=== PATIENT | female | born 1985 | race Caucasian/White ===

== ENCOUNTER 2016-07-25 12:14 | Emergency (ER) | payer MEDICARE, OTHER ==
--- NOTE | 2016-07-25 14:30 | ED ORDER SUMMARY ---
..... Patient: BELLA AVERY OrderSheet [facility] VisitID: [id number] [address] [place] [address] 31y, F Registration Date/Time: 07/25/2016 ORDER SHEET Weight: 81.6 kg (stated) Allergies: Codeine, Darvocet, Pyridium, Sulfa Antibiotics GENERAL ORDERS: Culture, Strep Screen Urgent (12:47 07/25/2016 MWinterer R.N. per protocol) (k 12:52 LTapper) (13:15 MWinterer R.N.) MEDICATION ORDERS: IV FLUIDS: ORDER SHEET NOTES: [Electronically signed by Danyelle Good R.N. (16:09 07/25/2016)] [Electronically signed by Rosa Casey (20:43 07/25/2016)] [Electronically locked/signed by Danyelle Good R.N. (16:09 07/25/2016)]
--- NOTE | 2016-07-25 14:30 | ED NURSING NOTES ---
Clinical Report - Nurses [facility] [address] [place] [address] 07/25/2016 12:17 Patient: BELLA AVERY TRIAGE Acuity: LEVEL 4. Chief Complaint: SORE THROAT and (cough). Alert. No acute distress. SEPSIS SCREEN: Sepsis Screen. Negative (no infection suspected/documented). --12:43 Danyelle Good R.N. 12:38 07/25/16. BP: 160/111. HR: 86. RR: 16. O2 saturation: 95% on room air. Temp: 98.3 F (oral). Pain level now: 09/17. --12:43 Danyelle Good R.N. Weight: 81.6 kg stated. Height/Length: 61 inches Per Patient. BMI: 34. --12:38 Danyelle Good R.N. Medications Lisinopril Oral 20 mg, daily. MetFORMIN HCl Oral 500 mg, daily. Seritriptoline 50mg 3 tabs for sleeping . SEROquel Oral 100 mg, 2x a day. --12:40 Danyelle Good R.N. Medication/allergy information source: the patient. --12:43 Danyelle Good R.N. Allergies Codeine. Darvocet. Pyridium. --12:40 Danyelle Good R.N. Sulfa Antibiotics. --12:40 Danyelle Good R.N. History Arrived by private vehicle. Historian: patient. Primary physician (Ender). Onset. (5 days ago). 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 PAST MEDICAL HX: Has had a tubal ligation. Denies current . SOCIAL HX: Never smoker. History of weekly drug use: marijuana. No alcohol use. Has had sore throat. Mask placed on patient. FALL RISK ASSESSMENT: Fall risk assessment completed. No fall risk identified. NUTRITIONAL RISK ASSESSMENT: The nutritional risk assessment revealed no deficiencies. FUNCTIONAL ASSESSMENT: Functional assessment: no impairments noted. LEARNING NEEDS ASSESSMENT: The learning needs assessment revealed no barriers. SKIN INTEGRITY ASSESSMENT: Skin integrity risk assessment completed. No skin integrity risk identified. --12:43 Danyelle Good R.N. PROBLEMS: Nausea. Renal Colic. Ureterolithiasis. Knee Injury. Diabetes Mellitus. Sinusitis. Pharyngitis. Bronchitis. URI. Acute Otalgia. Dental Caries. Headache. Hyperglycemia. Leukocytosis. Substance Abuse. Anemia. Dehydration. Abdominal Pain. Chronic Back Pain. UTI - Urinary Tract Infection. Nephrolithiasis. Back Pain. Colitis. Endometriosis. STD - Sexually Transmitted Disease. Hypertension. Immunizations. --12:41 Danyelle Good R.N. ADDITIONAL SURGERIES: Cholecystectomy. Tubal Ligation. --12:41 Danyelle Good R.N. Assessment GENERAL / NEURO / PSYCH: Alert. Oriented X 4. Appears in no acute distress. [place] Coma Scale: 15- eyes open spontaneously (4); best verbal response- oriented x 4 (5); best motor response- obeys commands (6). Patient appears calm and cooperative. RESPIRATORY: Respirations not labored. CVS: Capillary refill less than 2 seconds. GI / : Abdomen nontender. SKIN: Mucous membranes are pink. Skin is warm and dry. --12:43 Danyelle Good R.N. Interventions ID band on patient. To treatment room. --12:43 Danyelle Good R.N. PHYSICAL ASSESSMENT Ambulatory to room. GENERAL / NEURO / PSYCH: Alert. Oriented X 4. Appears in no acute distress. HEENT: Voice within normal limits. Mucous membranes are pink. RESPIRATORY: Respirations not labored. SKIN: Skin is warm and dry. Normal skin turgor. --12:46 Danyelle Good R.N. NURSING PROGRESS NOTES Checked patient name and birthdate: patient confirmed. Throat swab obtained for rapid strep; labeled in the presence of the patient and sent to lab. Two patient identifiers checked. Call light placed in reach. Side rails up x 1. Patient ready for evaluation- chart flagged and ED physician and HOGSHEAD OPENER notified. --12:46 Danyelle Good R.N. DISPOSITION / DISCHARGE Departure time: 1439Jul 25 2016. Condition at departure: deteriorated and stable. No learning barriers present. Discharge instructions provided and reviewed with the patient. Reviewed medication(s). Prescription(s) given to the patient. Patient verbalized understanding. Written instructions provided in Swedish. The patient was discharged by the nurse practitioner. She was discharged home. She left the Emergency Department ambulatory and via private vehicle. --16:08 Danyelle Good R.N. 16:06 07/25/16. BP: 160/89. HR: 81. RR: 18. O2 saturation: 100% on room air. Temp: 99.1 F. Pain level now: 11/17. --16:08 Danyelle Good R.N. Locked/Released at 07/25/2016 16:09 by Danyelle Good R.N.
--- NOTE | 2016-07-25 14:30 | ED CLINICAL REPORT ---
Clinical Report - Physicians/Mid Levels [facility] [address] [place] [address] 07/25/2016 12:17 Patient: BELLA AVERY Time Seen: 13:00; initial patient contact, initial documentation, patient care assumed. Arrived- By private vehicle. Historian- patient. HISTORY OF PRESENT ILLNESS Chief Complaint: SORE THROAT. This started about 5 days ago and is still present. Pain described as moderate. The patient has had a sore throat, nasal congestion, a nasal discharge and ear pain. No mouth sores, toothache, swollen jaw or face or jaw pain. No facial pain. (multiple family members sick with strep). Similar symptoms previously: None. Recent medical care: Not recently seen/assessed. REVIEW OF SYSTEMS No fever, difficulty breathing or chest pain. She has had a mild cough productive of scant amounts of yellow sputum. Denies current . All systems otherwise negative, except as recorded above. PAST HISTORY See nurses notes. PROBLEMS: Nausea. Renal Colic. Ureterolithiasis. Knee Injury. Diabetes Mellitus. Sinusitis. Pharyngitis. Bronchitis. URI. Acute Otalgia. Dental Caries. Headache. Hyperglycemia. Leukocytosis. Substance Abuse. Anemia. Dehydration. Abdominal Pain. Chronic Back Pain. UTI - Urinary Tract Infection. Nephrolithiasis. Back Pain. Colitis. Endometriosis. STD - Sexually Transmitted Disease. Hypertension. Immunizations. --12:41 Danyelle Good R.N. ADDITIONAL SURGERIES: Cholecystectomy. Tubal Ligation. --12:41 Danyelle Good, R.N. SOCIAL HISTORY Never smoker. History of weekly drug use: marijuana. No alcohol use. No recent travel. Is a local resident. FAMILY HISTORY Negative. ADDITIONAL NOTES The nursing notes have been reviewed with agreement regarding the chief complaint, HPI, ROS, PMH and patient medications and allergies. PHYSICAL EXAM Appearance: Alert. No acute distress. Head: Normal external inspection. Eyes: Pupils equal, round and reactive to light. Conjunctivae and eyelids normal. ENT: Ears normal. Nose normal. Pharynx abnormal. Mild generalized pharyngeal erythema (very mild erythema with mild cobblestone pharynx). No pharyngeal vesicles or ulcerations. No right tonsillar exudate, right tonsillar abscess, right tonsillar swelling, right peritonsillitis, left tonsillar exudate, left tonsillar abscess, left tonsillar swelling or left peritonsillitis. Lips normal. Gums normal. No trismus present. Uvula midline. Neck: Normal inspection. Trachea midline. No adenopathy. Thyroid normal. Neck supple. CVS: Normal heart rate and rhythm. Heart sounds normal. Pulses normal. Respiratory: No respiratory distress. Breath sounds normal. Chest nontender. Skin: Normal skin color. No rash. Normal skin turgor. Extremities: Extremities exhibit normal ROM. Extremities nontender. Neuro: Oriented X 3. No motor deficit. No sensory deficit. LABS, X-RAYS, AND EKG Laboratory Tests: Culture, Strep Screen: (LORETO: 07/25/2016 12:45) ( MsgRcvd 07/25/2016 13:13) Final results Test Result Flag Units (Reference) RAPID STREP SCREEN - THROAT DATE: 07/25/16 NEGATIVE SCREEN: RAPID STREP SCREEN NEGATIVE; CONFIRMATION TO FOLLOW . PROGRESS AND PROCEDURES Patient counseled in person regarding the patient's stable condition, test results and diagnosis. 14:29. Differential Diagnosis: Other possible considerations: pharyngitis, flu, viral illness, uri, allergies, sinusitis, aom, aoe, bronchitis, pneumonia. Above considerations are based on history and physical exam. Differential diagnosis was discussed with patient. Disposition: Discharged home in good and unchanged condition (14:30). Condition: good and stable. CLINICAL IMPRESSION Acute viral sinusitis. No airway obstruction. Acute viral pharyngitis INSTRUCTIONS Alternate Tylenol (Acetaminophen) and Motrin (Ibuprofen) for fever, temperature greater than 101 degrees. Take according to label instructions. Drink plenty of fluids for the next 24 hours until better. Warnings: GENERAL WARNINGS: Return or contact your physician immediately if your condition worsens or changes unexpectedly, if not improving as expected, or if other problems arise. Specifically return if problem worsens. Prescription Medications: Amoxicillin 500 mg tablets: Take 1 orally every 8 hours for 10 days. Dispense thirty (30). No refills. Follow-up: Follow up with your doctor in about three days as needed. Call for an appointment. Summary of care provided to patient. Understanding of the discharge instructions verbalized. (Electronically signed by Rosa Casey A.R.N.P. 07/25/2016 20:43)
--- NOTE | 2016-07-25 14:30 | ED ORDER SUMMARY ---
..... Patient: BELLA AVERY OrderSheet [facility] VisitID: [id number] [address] [place] [address] 31y, F Registration Date/Time: 07/25/2016 ORDER SHEET Weight: 81.6 kg (stated) Allergies: Codeine, Darvocet, Pyridium, Sulfa Antibiotics GENERAL ORDERS: Culture, Strep Screen Urgent (12:47 07/25/2016 MWinterer R.N. per protocol) (k 12:52 LTapper) (13:15 MWinterer R.N.) MEDICATION ORDERS: IV FLUIDS: ORDER SHEET NOTES: [Electronically signed by Danyelle Good R.N. (16:09 07/25/2016)] [Electronically signed by Rosa Casey (20:43 07/25/2016)] [Electronically locked/signed by Danyelle Good R.N. (16:09 07/25/2016)]
--- NOTE | 2016-07-25 14:30 | ED NURSING NOTES ---
Clinical Report - Nurses [facility] [address] [place] [address] 07/25/2016 12:17 Patient: BELLA AVERY TRIAGE Acuity: LEVEL 4. Chief Complaint: SORE THROAT and (cough). Alert. No acute distress. SEPSIS SCREEN: Sepsis Screen. Negative (no infection suspected/documented). --12:43 Danyelle Good R.N. 12:38 07/25/16. BP: 160/111. HR: 86. RR: 16. O2 saturation: 95% on room air. Temp: 98.3 F (oral). Pain level now: 09/17. --12:43 Danyelle Good R.N. Weight: 81.6 kg stated. Height/Length: 61 inches Per Patient. BMI: 34. --12:38 Danyelle Good R.N. Medications Lisinopril Oral 20 mg, daily. MetFORMIN HCl Oral 500 mg, daily. Seritriptoline 50mg 3 tabs for sleeping . SEROquel Oral 100 mg, 2x a day. --12:40 Danyelle Good R.N. Medication/allergy information source: the patient. --12:43 Danyelle Good R.N. Allergies Codeine. Darvocet. Pyridium. --12:40 Danyelle Good R.N. Sulfa Antibiotics. --12:40 Danyelle Good R.N. History Arrived by private vehicle. Historian: patient. Primary physician (Ender). Onset. (5 days ago). 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 PAST MEDICAL HX: Has had a tubal ligation. Denies current . SOCIAL HX: Never smoker. History of weekly drug use: marijuana. No alcohol use. Has had sore throat. Mask placed on patient. FALL RISK ASSESSMENT: Fall risk assessment completed. No fall risk identified. NUTRITIONAL RISK ASSESSMENT: The nutritional risk assessment revealed no deficiencies. FUNCTIONAL ASSESSMENT: Functional assessment: no impairments noted. LEARNING NEEDS ASSESSMENT: The learning needs assessment revealed no barriers. SKIN INTEGRITY ASSESSMENT: Skin integrity risk assessment completed. No skin integrity risk identified. --12:43 Danyelle Good R.N. PROBLEMS: Nausea. Renal Colic. Ureterolithiasis. Knee Injury. Diabetes Mellitus. Sinusitis. Pharyngitis. Bronchitis. URI. Acute Otalgia. Dental Caries. Headache. Hyperglycemia. Leukocytosis. Substance Abuse. Anemia. Dehydration. Abdominal Pain. Chronic Back Pain. UTI - Urinary Tract Infection. Nephrolithiasis. Back Pain. Colitis. Endometriosis. STD - Sexually Transmitted Disease. Hypertension. Immunizations. --12:41 Danyelle Good R.N. ADDITIONAL SURGERIES: Cholecystectomy. Tubal Ligation. --12:41 Danyelle Good R.N. Assessment GENERAL / NEURO / PSYCH: Alert. Oriented X 4. Appears in no acute distress. [place] Coma Scale: 15- eyes open spontaneously (4); best verbal response- oriented x 4 (5); best motor response- obeys commands (6). Patient appears calm and cooperative. RESPIRATORY: Respirations not labored. CVS: Capillary refill less than 2 seconds. GI / : Abdomen nontender. SKIN: Mucous membranes are pink. Skin is warm and dry. --12:43 Danyelle Good R.N. Interventions ID band on patient. To treatment room. --12:43 Danyelle Good R.N. PHYSICAL ASSESSMENT Ambulatory to room. GENERAL / NEURO / PSYCH: Alert. Oriented X 4. Appears in no acute distress. HEENT: Voice within normal limits. Mucous membranes are pink. RESPIRATORY: Respirations not labored. SKIN: Skin is warm and dry. Normal skin turgor. --12:46 Danyelle Good R.N. NURSING PROGRESS NOTES Checked patient name and birthdate: patient confirmed. Throat swab obtained for rapid strep; labeled in the presence of the patient and sent to lab. Two patient identifiers checked. Call light placed in reach. Side rails up x 1. Patient ready for evaluation- chart flagged and ED physician and RN CHEMICAL DEPENDENCY notified. --12:46 Danyelle Good R.N. DISPOSITION / DISCHARGE Departure time: 1439Jul 25 2016. Condition at departure: deteriorated and stable. No learning barriers present. Discharge instructions provided and reviewed with the patient. Reviewed medication(s). Prescription(s) given to the patient. Patient verbalized understanding. Written instructions provided in Malay. The patient was discharged by the nurse practitioner. She was discharged home. She left the Emergency Department ambulatory and via private vehicle. --16:08 Danyelle Good R.N. 16:06 07/25/16. BP: 160/89. HR: 81. RR: 18. O2 saturation: 100% on room air. Temp: 99.1 F. Pain level now: 11/17. --16:08 Danyelle Good R.N. Locked/Released at 07/25/2016 16:09 by Danyelle Good R.N.
--- NOTE | 2016-07-25 20:44 | ED MAR SUMMARY ---
..... Medication Administration Record [facility] [address] [place], [place] [id number] Patient: BELLA AVERY Visit ID: [id number] 31y, F Weight: 81.6 kg Height/Length: 61 in BMI: 34 ALLERGIES: Codeine, Darvocet, Pyridium, Sulfa Antibiotics
--- NOTE | 2016-07-25 20:44 | ED MAR SUMMARY ---
..... Medication Administration Record [facility] [address] [place] [id number] Patient: BELLA AVERY Visit ID: [id number] 31y, F Weight: 81.6 kg Height/Length: 61 in BMI: 34 ALLERGIES: Codeine, Darvocet, Pyridium, Sulfa Antibiotics
--- NOTE | 2016-07-25 20:44 | ED MED RECONCILIATION SUMMARY ---
Patient: BELLA AVERY Medication Reconciliation Report [facility] VisitID: [id number] [address] [place] [address] 31y, F Registration Date/Time: 07/25/2016 Weight: 81.6 kg Height/Length: 61 in. BMI: 34.0 ALLERGIES: Codeine, Darvocet, Pyridium, Sulfa Antibiotics The patient's Home Medications are listed below: THE FOLLOWING MEDICATIONS NEED TO BE RECONCILED: Lisinopril Oral 20 mg, daily MetFORMIN HCl Oral 500 mg, daily Seritriptoline 50mg 3 tabs for sleeping SEROquel Oral 100 mg, 2x a day The source(s) of the original Home Medication information: patient The following Medications were given to the patient in the Emergency Department: None. The following Medications were prescribed to the patient: Amoxicillin 500 mg tablets: Take 1 orally every 8 hours for 10 days. Dispense thirty (30). No refills. -- Rosa Casey A.R.N.P.
--- NOTE | 2016-07-25 20:44 | ED MED RECONCILIATION SUMMARY ---
Patient: BELLA AVERY Medication Reconciliation Report [facility] VisitID: [id number] [address] [place] [address] 31y, F Registration Date/Time: 07/25/2016 Weight: 81.6 kg Height/Length: 61 in. BMI: 34.0 ALLERGIES: Codeine, Darvocet, Pyridium, Sulfa Antibiotics The patient's Home Medications are listed below: THE FOLLOWING MEDICATIONS NEED TO BE RECONCILED: Lisinopril Oral 20 mg, daily MetFORMIN HCl Oral 500 mg, daily Seritriptoline 50mg 3 tabs for sleeping SEROquel Oral 100 mg, 2x a day The source(s) of the original Home Medication information: patient The following Medications were given to the patient in the Emergency Department: None. The following Medications were prescribed to the patient: Amoxicillin 500 mg tablets: Take 1 orally every 8 hours for 10 days. Dispense thirty (30). No refills. -- Rosa Casey A.R.N.P.
--- NOTE | 2016-07-25 20:44 | ED DISCHARGE INSTRUCTIONS ---
Patient: BELLA AVERY General Instructions [facility] VisitID: [id number] [place] [address] 31y, F Registration Date/Time: 07/25/2016 Acute viral sinusitis. No airway obstruction. Acute viral pharyngitis INSTRUCTIONS Alternate Tylenol (Acetaminophen) and Motrin (Ibuprofen) for fever, temperature greater than 101 degrees. Take according to label instructions. Drink plenty of fluids for the next 24 hours until better. Warnings: GENERAL WARNINGS: Return or contact your physician immediately if your condition worsens or changes unexpectedly, if not improving as expected, or if other problems arise. Specifically return if problem worsens. Prescription Medications: Amoxicillin 500 mg tablets: Take 1 orally every 8 hours for 10 days. Dispense thirty (30). No refills. Follow-up: Follow up with your doctor in about three days as needed. Call for an appointment. Summary of care provided to patient. Understanding of the discharge instructions verbalized. ADDITIONAL INFORMATION Viral Pharyngitis (Sore Throat) Your throat pain is due to an infection called "Viral Pharyngitis", commonly known as "Sore Throat". This is a contagious illness. It is spread through the air by coughing, kissing or by touching others after touching your mouth or nose. Symptoms include throat pain worse with swallowing, aching all over, headache and fever. Unlike strep throat, which is a bacterial infection, this illness does not require treatment with an antibiotic. Home Care: If your symptoms are severe, rest at home for the first 2-3 days. Children: Use acetaminophen (Tylenol) for fever, fussiness or discomfort. In infants over six months of age, you may use ibuprofen (Children's Motrin) instead of Tylenol. [NOTE: If your child has chronic liver or kidney disease or ever had a stomach ulcer or GI bleeding, talk with your aaliyah doctor before using these medicines.] (Aspirin should never be used in anyone under 18 years of age who is ill with a fever. It may cause severe liver damage.) Adults: You may use acetaminophen (Tylenol) or ibuprofen (Motrin, Advil) to control pain or fever, unless another medicine was prescribed. [NOTE: If you have chronic liver or kidney disease or ever had a stomach ulcer or GI bleeding, talk with your doctor before using these medicines.] Throat lozenges or sprays (Chloraseptic and others) will reduce pain. Gargling with warm salt water will also reduce throat pain. Dissolve 1/2 teaspoon of salt in 1 glass of warm water. This is especially useful just before meals. Follow Up with your doctor or as directed by our staff if you are not improving over the next week. Get Prompt Medical Attention if any of the following occur: Fever over 100.5F (38.0C) oral, or over 101.5F (38.6C) rectal for more than three days New or worsening ear pain, sinus pain or headache Painful lumps in the back of your neck Unable to swallow liquids or open your mouth wide due to throat pain Trouble breathing or noisy breathing Muffled voice New rash Viral Respiratory Illness [Adult] You have an Upper Respiratory Illness (URI) caused by a virus. This illness is contagious during the first few days. It is spread through the air by coughing and sneezing or by direct contact (touching the sick person and then touching your own eyes, nose or mouth). Most viral illnesses go away within 7-10 days with rest and simple home remedies. Sometimes, the illness may last for several weeks. Antibiotics will not kill a virus and are generally not prescribed for this condition. Home Care: 1) If symptoms are severe, rest at home for the first 2-3 days. When you resume activity, don't let yourself get too tired. 2) Avoid being exposed to cigarette smoke (yours or others). 3) Tylenol (acetaminophen) or ibuprofen (Advil, Motrin) will help fever, muscle aching and headache. (Persons under 18 with fever should not take aspirin since this may cause liver damage.) 4) Your appetite may be poor, so a light diet is fine. Avoid dehydration by drinking 6-8 glasses of fluids per day (water, soft drinks, juices, tea, soup). Extra fluids will help loosen secretions in the nose and lungs. 5) [id number]-[id number] cold medicines will not shorten the length of time youre sick, but they may be helpful for the following symptoms: cough (Robitussin DM); sore throat (Chloraseptic lozenges or spray); nasal and sinus congestion (Actifed, Sudafed, Chlortrimeton). Follow Up with your doctor or as advised if you dont improve over the next week. Get Prompt Medical Attention if any of the following occur: -- Cough with lots of colored sputum (mucus) or blood in your sputum -- Chest pain, shortness of breath, wheezing or have trouble breathing -- Severe headache; face, neck or ear pain -- Fever over 100.4 F (38.0 C) for more than three days -- You cant swallow due to throat pain Fever Control (Adult) A fever is a natural reaction of the body to an illness. In most cases, the temperature itself is not harmful. It actually helps the body fight infections. A fever does not need to be treated unless you feel very uncomfortable. Home Care If you feel warm, check your temperature. If you feel very uncomfortable and your temperature is at or higher than 100.4F (38C) oral, you may take acetaminophen (Tylenol) every 4 to 6 hours. If you cant take or keep down oral medicine, ask your pharmacist for Tylenol suppositories, which you can get without a prescription. If the fever does not respond to acetaminophen within 1 hour, take ibuprofen (Advil or Motrin). If this works, keep taking the ibuprofen every 6 to 8 hours. Note: If you have chronic liver or kidney disease or ever had a stomach ulcer or GI bleeding, talk with your doctor before using these medications. If either medication alone does not keep the fever down, you may alternate the two medicines every 3 to 4 hours, only if your healthcare provider has instructed you to do so. For example, take Motrin then wait 3 hours, take Tylenol then wait 3 hours, take Motrin, and so on. Follow your healthcare providers instructions exactly. Clothing: Keep clothing light because excess body heat is lost through the skin. The fever will go up if you wear extra layers or wrap in blankets. Fluids: Fever causes the body to lose water through evaporation. Drink plenty of fluids such as water, juice, clear sodas, naima vj, or lemonade. Do not use aspirin in anyone under 18 years of age who is ill with a fever. It can cause severe liver damage. Follow Up with your doctor or as advised by our staff if you do not get better after 48 hours. Get Prompt Medical Attention if any of the following occur: Fever does not get better after taking fever medication Fast or difficult breathing Earache, sinus pain, stiff or painful neck, headache, repeated diarrhea or vomiting You feel unusually irritable, drowsy, or confused A rash appears You feel weak or dizzy, or that you might faint Amoxicillin Trihydrate Oral tablet What is this medicine? AMOXICILLIN (a mox i PIERRE in) is a penicillin antibiotic. It is used to treat certain kinds of bacterial infections. It will not work for colds, flu, or other viral infections. How should I use this medicine? Take this medicine by mouth with a glass of water. Follow the directions on your prescription label. You may take this medicine with food or on an empty stomach. Take your medicine at regular intervals. Do not take your medicine more often than directed. Take all of your medicine as directed even if you think your are better. Do not skip doses or stop your medicine early. Talk to your appointment scheduler regarding the use of this medicine in children. While this drug may be prescribed for selected conditions, precautions do apply. What side effects may I notice from receiving this medicine? Side effects that you should report to your doctor or health resident care associate as soon as possible: allergic reactions like skin rash, itching or hives, swelling of the face, lips, or tongue breathing problems dark urine redness, blistering, peeling or loosening of the skin, including inside the mouth seizures severe or watery diarrhea trouble passing urine or change in the amount of urine unusual bleeding or bruising unusually weak or tired yellowing of the eyes or skin Side effects that usually do not require medical attention (report to your doctor or health resident care associate if they continue or are bothersome): dizziness headache stomach upset trouble sleeping What may interact with this medicine? amiloride control pills chloramphenicol macrolides probenecid sulfonamides tetracyclines What if I miss a dose? If you miss a dose, take it as soon as you can. If it is almost time for your next dose, take only that dose. Do not take double or extra doses. Where should I keep my medicine? Keep out of the reach of children. Store between 68 and 77 degrees F (20 and 25 degrees C). Keep bottle closed tightly. Throw away any unused medicine after the expiration date. What should I tell my health care provider before I take this medicine? They need to know if you have any of these conditions: asthma kidney disease an unusual or allergic reaction to amoxicillin, other penicillins, cephalosporin antibiotics, other medicines, foods, dyes, or preservatives or trying to get breast-feeding What should I watch for while using this medicine? Tell your doctor or health resident care associate if your symptoms do not improve in 2 or 3 days. Take all of the doses of your medicine as directed. Do not skip doses or stop your medicine early. If you are diabetic, you may get a false positive result for sugar in your urine with certain brands of urine tests. Check with your doctor. Do not treat diarrhea with [id number]-rbb-xtermon products. Contact your doctor if you have diarrhea that lasts more than 2 days or if the diarrhea is severe and watery. You have been given the following additional information: Pharyngitis, Viral Uri, Viral, No Abx (Adult) Fever Control (Adult) Amoxicillin Trihydrate Oral tablet (Electronically signed by Rosa Casey A.R.N.P. 07/25/2016 20:43)
== END 2016-07-25 14:40 | disposition home or self-care (01) ==
LOC: ED SRH 12:14
DX: J01.90 Acute sinusitis, unspecified (principal); J20.8 Acute bronchitis due to other specified organisms; Z79.84 Long term (current) use of oral hypoglycemic drugs; Z88.5 Allergy status to narcotic agent; Z88.2 Allergy status to sulfonamides
CPT/HCPCS: 90154; 90159; 90627

== ENCOUNTER 2016-08-16 13:38 | Emergency (ER) | payer MEDICARE, OTHER ==
--- NOTE | 2016-08-16 15:39 | ED CLINICAL REPORT ---
Clinical Report - Physicians/Mid Levels [facility] [address] [place] [address] 08/16/2016 13:38 Patient: BELLA AVERY Time Seen: 16:22 Aug 16 2016. Arrived- By private vehicle. Historian- patient. HISTORY OF PRESENT ILLNESS Chief Complaint: SORE THROAT. This started yesterday and is still present. Pain described as moderate. The patient has had a sore throat. No toothache or swollen jaw. (Sore throat over the last 24 hours, worsening. Denies any difficulty with cough, swallowing. No sick contacts at home.). REVIEW OF SYSTEMS The patient has had fever. No headache or fainting episodes. All systems otherwise negative, except as recorded above. PAST HISTORY Problems: Nausea. Renal Colic. Ureterolithiasis. Knee Injury. Diabetes Mellitus. Sinusitis. Pharyngitis. Bronchitis. URI. Acute Otalgia. Dental Caries. Headache. Hyperglycemia. Leukocytosis. Substance Abuse. Anemia. Dehydration. Abdominal Pain. Chronic Back Pain. UTI - Urinary Tract Infection. Nephrolithiasis. Back Pain. Colitis. Endometriosis. STD - Sexually Transmitted Disease. Hypertension. Immunizations. LNMP - Last Normal Menstrual Period. Additional Surgeries: Cholecystectomy. Tubal Ligation. Medications: DayQuil Sore Throat and Cough. Lisinopril Oral 20 mg, daily. MetFORMIN HCl Oral 500 mg, daily. Seritriptoline 50mg 3 tabs for sleeping . SEROquel Oral 100 mg, 2x a day. Allergies: Codeine. Darvocet. Pyridium. Sulfa Antibiotics. SOCIAL HISTORY Never smoker. History of occasional drug use throat culture. No alcohol use. ADDITIONAL NOTES The nursing notes have been reviewed. PHYSICAL EXAM Vital Signs: 08/16/2016 14:56 BP: 180/120. HR: 84. RR: 18. O2 saturation: 98%. Temp: 98.7 F. Pain level now: 7/10. ENT: Nose normal. Pharyngeal erythema. No trismus present. No tonsillar exudate, peritonsillar mass, drooling, dental tenderness or trismus. The mucous membranes are not dry. (uvula midline). Neck: Lymphadenopathy present. No thyromegaly or meningeal signs. CVS: Normal heart rate and rhythm. Heart sounds normal. Respiratory: No respiratory distress. Breath sounds normal. Abdomen: Soft. Neuro: Oriented X 3. LABS, X-RAYS, AND EKG Laboratory Tests: Culture, Strep Screen: (LORETO: 08/16/2016 15:00) ( MsgRcvd 08/16/2016 15:34) Final results Test Result Flag Units (Reference) RAPID STREP SCREEN - THROAT CALLED TO: ED LEONARDO/NAMAN MACK -- DATE: 08/16/16 POSITIVE SCREEN: RAPID STREP SCREEN: POSITIVE FOR GROUP A STREP . PROGRESS AND PROCEDURES Course of Care: PCP in the ER is afebrile, with signs of hypertension, to be checked with her primary care provider. Uvula midline. Patient is stable. Physical exam findings are improved. Symptoms better. Patient/family counseled. Differential Diagnosis: I considered viral pharyngitis, bacterial pharyngitis, mycoplasmal pharyngitis, gonococcal pharyngitis, palatine tonsillitis, lingual tonsillitis, thrush, aphthous stomatitis, allergic stomatitis, erythema multiforme, mononucleosis, peritonsillar cellulitis, parapharyngeal abscess and foreign body as a possible cause of sore throat in this patient. This is a partial list of diagnoses considered. Disposition: Discharged. CLINICAL IMPRESSION Acute pharyngitis Diabetes. INSTRUCTIONS Drink plenty of fluids. (salt water gargles hydrate well). Prescription Medications: Amoxicillin 500 mg tablets: take 1 orally every 8 hours for 10 days. No refills. OTC Medications: Take OTC medications according to label instructions. Available over the counter. Acetaminophen (available over the counter): take according to label instructions. Motrin (available over the counter): take according to label instructions. Follow-up: Follow up with your doctor in three days. (Electronically signed by Melva Sweeney P.A.-C 08/16/2016 16:25)
--- NOTE | 2016-08-16 15:39 | ED ORDER SUMMARY ---
..... Patient: BELLA AVERY OrderSheet [facility] VisitID: [id number] [address] [place] [address] 31y, F Registration Date/Time: 08/16/2016 ORDER SHEET Weight: 81.6 kg Allergies: Codeine, Darvocet, Pyridium, Sulfa Antibiotics GENERAL ORDERS: Culture, Strep Screen Urgent (14:58 08/16/2016 EKoroleva P.A.-C) (Ack 15:03 LNations ER Tech1) (15:44 Armandoelli R.N.) POC Glucose (14:58 08/16/2016 EKoroleva P.A.-C) (Ack 15:03 LNations ER Tech1) (15:44 Armandoelli R.N.) MEDICATION ORDERS: Amoxicillin PO 500 mg (NOW) (15:36 08/16/2016 Kiesha P.A.-C) (Ack 15:52 Blanco R.N.) (15:52 Blanco R.N.) IV FLUIDS: ORDER SHEET NOTES: [Electronically signed by Ryanne Roman R.N. (15:58 08/16/2016)] [Electronically signed by Melva Sweeney P.A.-C (16:25 08/16/2016)] [Electronically locked/signed by Ryanne Roman R.N. (15:58 08/16/2016)]
--- NOTE | 2016-08-16 15:39 | ED CLINICAL REPORT ---
Clinical Report - Physicians/Mid Levels [facility] [address] [place] [address] 08/16/2016 13:38 Patient: BELLA AVERY Time Seen: 16:22 Aug 16 2016. Arrived- By private vehicle. Historian- patient. HISTORY OF PRESENT ILLNESS Chief Complaint: SORE THROAT. This started yesterday and is still present. Pain described as moderate. The patient has had a sore throat. No toothache or swollen jaw. (Sore throat over the last 24 hours, worsening. Denies any difficulty with cough, swallowing. No sick contacts at home.). REVIEW OF SYSTEMS The patient has had fever. No headache or fainting episodes. All systems otherwise negative, except as recorded above. PAST HISTORY Problems: Nausea. Renal Colic. Ureterolithiasis. Knee Injury. Diabetes Mellitus. Sinusitis. Pharyngitis. Bronchitis. URI. Acute Otalgia. Dental Caries. Headache. Hyperglycemia. Leukocytosis. Substance Abuse. Anemia. Dehydration. Abdominal Pain. Chronic Back Pain. UTI - Urinary Tract Infection. Nephrolithiasis. Back Pain. Colitis. Endometriosis. STD - Sexually Transmitted Disease. Hypertension. Immunizations. LNMP - Last Normal Menstrual Period. Additional Surgeries: Cholecystectomy. Tubal Ligation. Medications: DayQuil Sore Throat and Cough. Lisinopril Oral 20 mg, daily. MetFORMIN HCl Oral 500 mg, daily. Seritriptoline 50mg 3 tabs for sleeping . SEROquel Oral 100 mg, 2x a day. Allergies: Codeine. Darvocet. Pyridium. Sulfa Antibiotics. SOCIAL HISTORY Never smoker. History of occasional drug use throat culture. No alcohol use. ADDITIONAL NOTES The nursing notes have been reviewed. PHYSICAL EXAM Vital Signs: 08/16/2016 14:56 BP: 180/120. HR: 84. RR: 18. O2 saturation: 98%. Temp: 98.7 F. Pain level now: 7/10. ENT: Nose normal. Pharyngeal erythema. No trismus present. No tonsillar exudate, peritonsillar mass, drooling, dental tenderness or trismus. The mucous membranes are not dry. (uvula midline). Neck: Lymphadenopathy present. No thyromegaly or meningeal signs. CVS: Normal heart rate and rhythm. Heart sounds normal. Respiratory: No respiratory distress. Breath sounds normal. Abdomen: Soft. Neuro: Oriented X 3. LABS, X-RAYS, AND EKG Laboratory Tests: Culture, Strep Screen: (LORETO: 08/16/2016 15:00) ( MsgRcvd 08/16/2016 15:34) Final results Test Result Flag Units (Reference) RAPID STREP SCREEN - THROAT CALLED TO: ED LEONARDO/NAMAN MACK -- DATE: 08/16/16 POSITIVE SCREEN: RAPID STREP SCREEN: POSITIVE FOR GROUP A STREP . PROGRESS AND PROCEDURES Course of Care: PCP in the ER is afebrile, with signs of hypertension, to be checked with her primary care provider. Uvula midline. Patient is stable. Physical exam findings are improved. Symptoms better. Patient/family counseled. Differential Diagnosis: I considered viral pharyngitis, bacterial pharyngitis, mycoplasmal pharyngitis, gonococcal pharyngitis, palatine tonsillitis, lingual tonsillitis, thrush, aphthous stomatitis, allergic stomatitis, erythema multiforme, mononucleosis, peritonsillar cellulitis, parapharyngeal abscess and foreign body as a possible cause of sore throat in this patient. This is a partial list of diagnoses considered. Disposition: Discharged. CLINICAL IMPRESSION Acute pharyngitis Diabetes. INSTRUCTIONS Drink plenty of fluids. (salt water gargles hydrate well). Prescription Medications: Amoxicillin 500 mg tablets: take 1 orally every 8 hours for 10 days. No refills. OTC Medications: Take OTC medications according to label instructions. Available over the counter. Acetaminophen (available over the counter): take according to label instructions. Motrin (available over the counter): take according to label instructions. Follow-up: Follow up with your doctor in three days. (Electronically signed by Melva Sweeney P.A.-C 08/16/2016 16:25)
--- NOTE | 2016-08-16 15:39 | ED ORDER SUMMARY ---
..... Patient: BELLA AVERY OrderSheet [facility] VisitID: [id number] [address] [place] [address] 31y, F Registration Date/Time: 08/16/2016 ORDER SHEET Weight: 81.6 kg Allergies: Codeine, Darvocet, Pyridium, Sulfa Antibiotics GENERAL ORDERS: Culture, Strep Screen Urgent (14:58 08/16/2016 EKoroleva P.A.-C) (Ack 15:03 LNations ER Tech1) (15:44 Armandoelli R.N.) POC Glucose (14:58 08/16/2016 EKoroleva P.A.-C) (Ack 15:03 LNations ER Tech1) (15:44 Armandoelli R.N.) MEDICATION ORDERS: Amoxicillin PO 500 mg (NOW) (15:36 08/16/2016 Kiesha P.A.-C) (Ack 15:52 Blanco R.N.) (15:52 Blanco R.N.) IV FLUIDS: ORDER SHEET NOTES: [Electronically signed by Ryanne Roman R.N. (15:58 08/16/2016)] [Electronically signed by Melva Sweeney P.A.-C (16:25 08/16/2016)] [Electronically locked/signed by Ryanne Roman R.N. (15:58 08/16/2016)]
--- NOTE | 2016-08-16 15:39 | ED NURSING NOTES ---
Clinical Report - Nurses [facility] [address] [place] [address] 08/16/2016 13:38 Patient: BELLA AVERY TRIAGE Triage time 14:56 Aug 16 2016. Acuity: LEVEL 3. Chief Complaint: SORE THROAT, SWELLING OF JAW / FACE and (swelling of throat). Alert. LILLY COMA SCORE: Lilly Coma Scale: 15- eyes open spontaneously (4); best verbal response- oriented x 4 (5); best motor response- obeys commands (6). --15:05 Teto Reyes R.N. 14:56 08/16/16. BP: 180/120. HR: 84 (regular). RR: 18. O2 saturation: 98% on room air. Temp: 98.7 F (oral). Pain level now: 7/10. Additional comments: sore throat pain. --15:05 Teto Reyes R.N. Weight: 81.6 kg. Height/Length: 61 inches Per Patient. BMI: 34. --14:57 Teto Reyes R.N. Medications Lisinopril Oral 20 mg, daily. MetFORMIN HCl Oral 500 mg, daily. Seritriptoline 50mg 3 tabs for sleeping . SEROquel Oral 100 mg, 2x a day. --14:59 Teto Reyes R.N. DayQuil Sore Throat and Cough. --14:59 Teto Reyes R.N. Allergies Codeine. Darvocet. Pyridium. Sulfa Antibiotics. --14:59 Teto Reyes R.N. Medication/allergy information source: the patient. --15:05 Teto Reyes R.N. History Arrived by private vehicle. Historian: patient. Accompanied by family. Primary physician ([facility]). ( Sore Throat associated with throat swelling). This started yesterday. She has had hoarseness. Reports enlarged lymph nodes. 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 Symptoms did not improve after treatment. PAST MEDICAL HX: Immunizations: status is unknown. Last normal menstrual period was 3 weeks ago. Denies current . SOCIAL HX: Never smoker. History of drug use: marijuana. No alcohol use. No infectious disease exposure. ABUSE ASSESSMENT: No report of abuse. FALL RISK ASSESSMENT: Fall risk assessment completed. No fall risk identified. NUTRITIONAL RISK ASSESSMENT: The nutritional risk assessment revealed no deficiencies. FUNCTIONAL ASSESSMENT: Functional assessment: no impairments noted. LEARNING NEEDS ASSESSMENT: The learning needs assessment revealed no barriers. SKIN INTEGRITY ASSESSMENT: Skin integrity risk assessment completed. No skin integrity risk identified. --15:05 Teto Reyes R.N. PROBLEMS: Nausea. Renal Colic. Ureterolithiasis. Knee Injury. Diabetes Mellitus. Sinusitis. Pharyngitis. Bronchitis. URI. Acute Otalgia. Dental Caries. Headache. Hyperglycemia. Leukocytosis. Substance Abuse. Anemia. Dehydration. Abdominal Pain. Chronic Back Pain. UTI - Urinary Tract Infection. Nephrolithiasis. Back Pain. Colitis. Endometriosis. Hypertension. --15:01 Teot Reyes R.N. Pelvic Inflammatory Disease [RuleOut]. --15:01 Teto Reyes R.N. ADDITIONAL SURGERIES: Cholecystectomy. Tubal Ligation. --15:01 Teto Reyes R.N. Interventions ID band on patient. To waiting room. --15:05 Teto Reyes R.N. PHYSICAL ASSESSMENT 15:50. Ambulatory to room. GENERAL / NEURO / PSYCH: Alert. Oriented X 4. Appears in no acute distress. RESPIRATORY: Respirations not labored. SKIN: Skin is warm and dry. --15:58 Ryanne Roman R.N. NURSING PROGRESS NOTES Glucose: 260. --15:12 Dharmesh Fleming 15:35 08/16/16. ( Lab called with positive strep screen , HERI Sorenson notified). --15:35 Roxane Dominguez R.N. 15:47 08/16/2016 Amoxicillin PO Capsules 500 mg given. Allergies verified and confirmed 5 rights. --15:52 Ryanne Roman R.N. 15:50. The patient is calm. Overall patient status is the same- she states feels the same. GENERAL / NEURO / PSYCH: Alert. Oriented X 4. RESPIRATORY: No respiratory distress. SKIN: Skin is warm and dry. --15:57 Ryanne Roman R.N. DISPOSITION / DISCHARGE Departure time: 1550. Condition at departure: stable. No learning barriers present. Discharge instructions provided and reviewed with the patient. Reviewed medication(s). Prescription(s) given to the patient. Patient verbalized understanding. Written instructions provided in Polish. The patient was discharged home and unaccompanied at time of discharge. She left the Emergency Department ambulatory and via private vehicle. FALL RISK ASSESSMENT: Fall risk assessment completed. No fall risk identified. --15:56 Ryanne Roman R.N. 15:53 08/16/16. BP: 159/90. HR: 85. RR: 18. O2 saturation: 99% on room air. Pain level now: 02/17. --15:56 Ryanne Roman R.N. Locked/Released at 08/16/2016 15:58 by Ryanne Roman R.N.
--- NOTE | 2016-08-16 15:39 | ED NURSING NOTES ---
Clinical Report - Nurses [facility] [address] [place] [address] 08/16/2016 13:38 Patient: BELLA AVERY TRIAGE Triage time 14:56 Aug 16 2016. Acuity: LEVEL 3. Chief Complaint: SORE THROAT, SWELLING OF JAW / FACE and (swelling of throat). Alert. LILLY COMA SCORE: Lilly Coma Scale: 15- eyes open spontaneously (4); best verbal response- oriented x 4 (5); best motor response- obeys commands (6). --15:05 Teto Reyes R.N. 14:56 08/16/16. BP: 180/120. HR: 84 (regular). RR: 18. O2 saturation: 98% on room air. Temp: 98.7 F (oral). Pain level now: 7/10. Additional comments: sore throat pain. --15:05 Teto Reyes R.N. Weight: 81.6 kg. Height/Length: 61 inches Per Patient. BMI: 34. --14:57 Teto Reyes R.N. Medications Lisinopril Oral 20 mg, daily. MetFORMIN HCl Oral 500 mg, daily. Seritriptoline 50mg 3 tabs for sleeping . SEROquel Oral 100 mg, 2x a day. --14:59 Teto Reyes R.N. DayQuil Sore Throat and Cough. --14:59 Teto Reyes R.N. Allergies Codeine. Darvocet. Pyridium. Sulfa Antibiotics. --14:59 Teto Reyes R.N. Medication/allergy information source: the patient. --15:05 Teto Reyes R.N. History Arrived by private vehicle. Historian: patient. Accompanied by family. Primary physician ([facility]). ( Sore Throat associated with throat swelling). This started yesterday. She has had hoarseness. Reports enlarged lymph nodes. 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 Symptoms did not improve after treatment. PAST MEDICAL HX: Immunizations: status is unknown. Last normal menstrual period was 3 weeks ago. Denies current . SOCIAL HX: Never smoker. History of drug use: marijuana. No alcohol use. No infectious disease exposure. ABUSE ASSESSMENT: No report of abuse. FALL RISK ASSESSMENT: Fall risk assessment completed. No fall risk identified. NUTRITIONAL RISK ASSESSMENT: The nutritional risk assessment revealed no deficiencies. FUNCTIONAL ASSESSMENT: Functional assessment: no impairments noted. LEARNING NEEDS ASSESSMENT: The learning needs assessment revealed no barriers. SKIN INTEGRITY ASSESSMENT: Skin integrity risk assessment completed. No skin integrity risk identified. --15:05 Teto Reyes R.N. PROBLEMS: Nausea. Renal Colic. Ureterolithiasis. Knee Injury. Diabetes Mellitus. Sinusitis. Pharyngitis. Bronchitis. URI. Acute Otalgia. Dental Caries. Headache. Hyperglycemia. Leukocytosis. Substance Abuse. Anemia. Dehydration. Abdominal Pain. Chronic Back Pain. UTI - Urinary Tract Infection. Nephrolithiasis. Back Pain. Colitis. Endometriosis. Hypertension. --15:01 Teto Reyes R.N. Pelvic Inflammatory Disease [RuleOut]. --15:01 Teto Reyes R.N. ADDITIONAL SURGERIES: Cholecystectomy. Tubal Ligation. --15:01 Teto Reyes R.N. Interventions ID band on patient. To waiting room. --15:05 Teto Reyes R.N. PHYSICAL ASSESSMENT 15:50. Ambulatory to room. GENERAL / NEURO / PSYCH: Alert. Oriented X 4. Appears in no acute distress. RESPIRATORY: Respirations not labored. SKIN: Skin is warm and dry. --15:58 Ryanne Roman R.N. NURSING PROGRESS NOTES Glucose: 260. --15:12 Dharmesh Fleming 15:35 08/16/16. ( Lab called with positive strep screen , HERI Sorenson notified). --15:35 Roxane Dominguez R.N. 15:47 08/16/2016 Amoxicillin PO Capsules 500 mg given. Allergies verified and confirmed 5 rights. --15:52 Ryanne Roman R.N. 15:50. The patient is calm. Overall patient status is the same- she states feels the same. GENERAL / NEURO / PSYCH: Alert. Oriented X 4. RESPIRATORY: No respiratory distress. SKIN: Skin is warm and dry. --15:57 Ryanne Roman R.N. DISPOSITION / DISCHARGE Departure time: 1550. Condition at departure: stable. No learning barriers present. Discharge instructions provided and reviewed with the patient. Reviewed medication(s). Prescription(s) given to the patient. Patient verbalized understanding. Written instructions provided in Wolof. The patient was discharged home and unaccompanied at time of discharge. She left the Emergency Department ambulatory and via private vehicle. FALL RISK ASSESSMENT: Fall risk assessment completed. No fall risk identified. --15:56 Ryanne Roman R.N. 15:53 08/16/16. BP: 159/90. HR: 85. RR: 18. O2 saturation: 99% on room air. Pain level now: 02/17. --15:56 Ryanne Roman R.N. Locked/Released at 08/16/2016 15:58 by Ryanne Roman R.N.
--- NOTE | 2016-08-16 16:25 | ED MED RECONCILIATION SUMMARY ---
Patient: BELLA AVERY Medication Reconciliation Report [facility] VisitID: [id number] [address] [place] [address] 31y, F Registration Date/Time: 08/16/2016 Weight: 81.6 kg Height/Length: 61 in. BMI: 34.0 ALLERGIES: Codeine, Darvocet, Pyridium, Sulfa Antibiotics The patient's Home Medications are listed below: THE FOLLOWING MEDICATIONS NEED TO BE RECONCILED: DayQuil Sore Throat and Cough Lisinopril Oral 20 mg, daily MetFORMIN HCl Oral 500 mg, daily Seritriptoline 50mg 3 tabs for sleeping SEROquel Oral 100 mg, 2x a day The source(s) of the original Home Medication information: patient The following Medications were given to the patient in the Emergency Department: Amoxicillin [PO] PO 500 mg, administered: 08/16/2016 3:47:00 PM The following Medications were prescribed to the patient: Take OTC medications according to label instructions. Available over the counter. -- Melva Sweeney, P.A.-C Acetaminophen (available over the counter): take according to label instructions. -- Melva Sweeney, P.A.-C Motrin (available over the counter): take according to label instructions. -- Melva Sweeney, P.A.-C Amoxicillin 500 mg tablets: take 1 orally every 8 hours for 10 days. No refills. -- Melva Sweeney P.A.-C
--- NOTE | 2016-08-16 16:25 | ED MAR SUMMARY ---
..... Medication Administration Record [facility] [address] [place] [address] Patient: BELLA AVERY Visit ID: [id number] 31y, F Weight: 81.6 kg Height/Length: 61 in BMI: 34 ALLERGIES: Codeine, Darvocet, Pyridium, Sulfa Antibiotics Given 15:47 08/16/2016 Ryanne Roman RRachael Medication Administered: AMOXICILLIN [PO], Dose: 500 mg Capsules PO. Medication Ordered: Amoxicillin PO 500 mg (NOW).
--- NOTE | 2016-08-16 16:25 | ED MED RECONCILIATION SUMMARY ---
Patient: BELLA AVERY Medication Reconciliation Report [facility] VisitID: [id number] [address] [place] [address] 31y, F Registration Date/Time: 08/16/2016 Weight: 81.6 kg Height/Length: 61 in. BMI: 34.0 ALLERGIES: Codeine, Darvocet, Pyridium, Sulfa Antibiotics The patient's Home Medications are listed below: THE FOLLOWING MEDICATIONS NEED TO BE RECONCILED: DayQuil Sore Throat and Cough Lisinopril Oral 20 mg, daily MetFORMIN HCl Oral 500 mg, daily Seritriptoline 50mg 3 tabs for sleeping SEROquel Oral 100 mg, 2x a day The source(s) of the original Home Medication information: patient The following Medications were given to the patient in the Emergency Department: Amoxicillin [PO] PO 500 mg, administered: 08/16/2016 3:47:00 PM The following Medications were prescribed to the patient: Take OTC medications according to label instructions. Available over the counter. -- Melva Sweeney, P.A.-C Acetaminophen (available over the counter): take according to label instructions. -- Melva Sweeney, P.A.-C Motrin (available over the counter): take according to label instructions. -- Melva Sweeney, P.A.-C Amoxicillin 500 mg tablets: take 1 orally every 8 hours for 10 days. No refills. -- Melva Sweeney P.A.-C
--- NOTE | 2016-08-16 16:25 | ED DISCHARGE INSTRUCTIONS ---
Patient: BELLA AVERY General Instructions [facility] VisitID: [id number] [place] [address] 31y, F Registration Date/Time: 08/16/2016 Acute pharyngitis Diabetes. INSTRUCTIONS Drink plenty of fluids. (salt water gargles hydrate well). Prescription Medications: Amoxicillin 500 mg tablets: take 1 orally every 8 hours for 10 days. No refills. OTC Medications: Take OTC medications according to label instructions. Available over the counter. Acetaminophen (available over the counter): take according to label instructions. Motrin (available over the counter): take according to label instructions. Follow-up: Follow up with your doctor in three days. ADDITIONAL INFORMATION Pharyngitis: Strep [Confirmed] Your test for strep throat was positive. Strep throat is a contagious illness. It is spread by coughing, kissing or by touching others after touching your mouth or nose. Symptoms include throat pain which is worse with swallowing, aching all over, headache and fever. You will be treated with an antibiotic which should make you start to feel better within 1-2 days. Home Care: Rest at home and drink plenty of fluids to avoid dehydration. No school or work for the first two days on antibiotics. You will not be contagious after this time and if you are feeling better, you can return to school or work. Take your antibiotics for a full 10 days, even if you feel better after the first few days of treatment. This is very important to prevent heart or kidney disease that can result as a complication of untreated strep throat infection. Children: Use acetaminophen (Tylenol) for fever, fussiness or discomfort. In infants over six months of age, you may use ibuprofen (Children's Motrin) instead of Tylenol. [NOTE: If your child has chronic liver or kidney disease or ever had a stomach ulcer or GI bleeding, talk with your doctor before using these medicines.] (Aspirin should never be used in anyone under 18 years of age who is ill with a fever. It may cause severe liver damage.)Adults: You may use acetaminophen (Tylenol) or ibuprofen (Motrin, Advil) to control pain or fever, unless another medicine was prescribed for this. [NOTE: If you have chronic liver or kidney disease or ever had a stomach ulcer or GI bleeding, talk with your doctor before using these medicines.] Throat lozenges or sprays (Chloraseptic and others) will reduce pain. Gargling with warm salt water will also reduce throat pain. Dissolve 1/2 teaspoon of salt in 1 glass of warm water. This is especially useful just before meals. Follow Up with your doctor or as directed by our staff if you are not improving over the next week. Get Prompt Medical Attention if any of the following occur: Fever of 100.4F (38C) oral or higher, not better with fever medication New or worsening ear pain, sinus pain or headache Painful lumps in the back of your neck Unable to swallow liquids or open your mouth wide due to throat pain Trouble breathing or noisy breathing Muffled voice New rash Amoxicillin Trihydrate Oral tablet What is this medicine? AMOXICILLIN (a mox i PIERRE in) is a penicillin antibiotic. It is used to treat certain kinds of bacterial infections. It will not work for colds, flu, or other viral infections. How should I use this medicine? Take this medicine by mouth with a glass of water. Follow the directions on your prescription label. You may take this medicine with food or on an empty stomach. Take your medicine at regular intervals. Do not take your medicine more often than directed. Take all of your medicine as directed even if you think your are better. Do not skip doses or stop your medicine early. Talk to your manager apple regarding the use of this medicine in children. While this drug may be prescribed for selected conditions, precautions do apply. What side effects may I notice from receiving this medicine? Side effects that you should report to your doctor or health health care liaison as soon as possible: allergic reactions like skin rash, itching or hives, swelling of the face, lips, or tongue breathing problems dark urine redness, blistering, peeling or loosening of the skin, including inside the mouth seizures severe or watery diarrhea trouble passing urine or change in the amount of urine unusual bleeding or bruising unusually weak or tired yellowing of the eyes or skin Side effects that usually do not require medical attention (report to your doctor or health health care liaison if they continue or are bothersome): dizziness headache stomach upset trouble sleeping What may interact with this medicine? amiloride control pills chloramphenicol macrolides probenecid sulfonamides tetracyclines What if I miss a dose? If you miss a dose, take it as soon as you can. If it is almost time for your next dose, take only that dose. Do not take double or extra doses. Where should I keep my medicine? Keep out of the reach of children. Store between 68 and 77 degrees F (20 and 25 degrees C). Keep bottle closed tightly. Throw away any unused medicine after the expiration date. What should I tell my health care provider before I take this medicine? They need to know if you have any of these conditions: asthma kidney disease an unusual or allergic reaction to amoxicillin, other penicillins, cephalosporin antibiotics, other medicines, foods, dyes, or preservatives or trying to get breast-feeding What should I watch for while using this medicine? Tell your doctor or health health care liaison if your symptoms do not improve in 2 or 3 days. Take all of the doses of your medicine as directed. Do not skip doses or stop your medicine early. If you are diabetic, you may get a false positive result for sugar in your urine with certain brands of urine tests. Check with your doctor. Do not treat diarrhea with [id number] products. Contact your doctor if you have diarrhea that lasts more than 2 days or if the diarrhea is severe and watery. You have been given the following additional information: Pharyngitis, Strep (Confirmed) Amoxicillin Trihydrate Oral tablet (Electronically signed by Melva Sweeney P.A.-C 08/16/2016 16:25)
--- NOTE | 2016-08-16 16:25 | ED MAR SUMMARY ---
..... Medication Administration Record [facility] [address] [place] [address] Patient: BELLA AVERY Visit ID: [id number] 31y, F Weight: 81.6 kg Height/Length: 61 in BMI: 34 ALLERGIES: Codeine, Darvocet, Pyridium, Sulfa Antibiotics Given 15:47 08/16/2016 Ryanne Roman RRachael Medication Administered: AMOXICILLIN [PO], Dose: 500 mg Capsules PO. Medication Ordered: Amoxicillin PO 500 mg (NOW).
--- NOTE | 2016-08-16 16:25 | ED DISCHARGE INSTRUCTIONS ---
Patient: BELLA AVERY General Instructions [facility] VisitID: [id number] [place] [address] 31y, F Registration Date/Time: 08/16/2016 Acute pharyngitis Diabetes. INSTRUCTIONS Drink plenty of fluids. (salt water gargles hydrate well). Prescription Medications: Amoxicillin 500 mg tablets: take 1 orally every 8 hours for 10 days. No refills. OTC Medications: Take OTC medications according to label instructions. Available over the counter. Acetaminophen (available over the counter): take according to label instructions. Motrin (available over the counter): take according to label instructions. Follow-up: Follow up with your doctor in three days. ADDITIONAL INFORMATION Pharyngitis: Strep [Confirmed] Your test for strep throat was positive. Strep throat is a contagious illness. It is spread by coughing, kissing or by touching others after touching your mouth or nose. Symptoms include throat pain which is worse with swallowing, aching all over, headache and fever. You will be treated with an antibiotic which should make you start to feel better within 1-2 days. Home Care: Rest at home and drink plenty of fluids to avoid dehydration. No school or work for the first two days on antibiotics. You will not be contagious after this time and if you are feeling better, you can return to school or work. Take your antibiotics for a full 10 days, even if you feel better after the first few days of treatment. This is very important to prevent heart or kidney disease that can result as a complication of untreated strep throat infection. Children: Use acetaminophen (Tylenol) for fever, fussiness or discomfort. In infants over six months of age, you may use ibuprofen (Children's Motrin) instead of Tylenol. [NOTE: If your child has chronic liver or kidney disease or ever had a stomach ulcer or GI bleeding, talk with your doctor before using these medicines.] (Aspirin should never be used in anyone under 18 years of age who is ill with a fever. It may cause severe liver damage.)Adults: You may use acetaminophen (Tylenol) or ibuprofen (Motrin, Advil) to control pain or fever, unless another medicine was prescribed for this. [NOTE: If you have chronic liver or kidney disease or ever had a stomach ulcer or GI bleeding, talk with your doctor before using these medicines.] Throat lozenges or sprays (Chloraseptic and others) will reduce pain. Gargling with warm salt water will also reduce throat pain. Dissolve 1/2 teaspoon of salt in 1 glass of warm water. This is especially useful just before meals. Follow Up with your doctor or as directed by our staff if you are not improving over the next week. Get Prompt Medical Attention if any of the following occur: Fever of 100.4F (38C) oral or higher, not better with fever medication New or worsening ear pain, sinus pain or headache Painful lumps in the back of your neck Unable to swallow liquids or open your mouth wide due to throat pain Trouble breathing or noisy breathing Muffled voice New rash Amoxicillin Trihydrate Oral tablet What is this medicine? AMOXICILLIN (a mox i PIERRE in) is a penicillin antibiotic. It is used to treat certain kinds of bacterial infections. It will not work for colds, flu, or other viral infections. How should I use this medicine? Take this medicine by mouth with a glass of water. Follow the directions on your prescription label. You may take this medicine with food or on an empty stomach. Take your medicine at regular intervals. Do not take your medicine more often than directed. Take all of your medicine as directed even if you think your are better. Do not skip doses or stop your medicine early. Talk to your care transitions nurse regarding the use of this medicine in children. While this drug may be prescribed for selected conditions, precautions do apply. What side effects may I notice from receiving this medicine? Side effects that you should report to your doctor or health pulmonary care nurse as soon as possible: allergic reactions like skin rash, itching or hives, swelling of the face, lips, or tongue breathing problems dark urine redness, blistering, peeling or loosening of the skin, including inside the mouth seizures severe or watery diarrhea trouble passing urine or change in the amount of urine unusual bleeding or bruising unusually weak or tired yellowing of the eyes or skin Side effects that usually do not require medical attention (report to your doctor or health pulmonary care nurse if they continue or are bothersome): dizziness headache stomach upset trouble sleeping What may interact with this medicine? amiloride control pills chloramphenicol macrolides probenecid sulfonamides tetracyclines What if I miss a dose? If you miss a dose, take it as soon as you can. If it is almost time for your next dose, take only that dose. Do not take double or extra doses. Where should I keep my medicine? Keep out of the reach of children. Store between 68 and 77 degrees F (20 and 25 degrees C). Keep bottle closed tightly. Throw away any unused medicine after the expiration date. What should I tell my health care provider before I take this medicine? They need to know if you have any of these conditions: asthma kidney disease an unusual or allergic reaction to amoxicillin, other penicillins, cephalosporin antibiotics, other medicines, foods, dyes, or preservatives or trying to get breast-feeding What should I watch for while using this medicine? Tell your doctor or health pulmonary care nurse if your symptoms do not improve in 2 or 3 days. Take all of the doses of your medicine as directed. Do not skip doses or stop your medicine early. If you are diabetic, you may get a false positive result for sugar in your urine with certain brands of urine tests. Check with your doctor. Do not treat diarrhea with [id number] products. Contact your doctor if you have diarrhea that lasts more than 2 days or if the diarrhea is severe and watery. You have been given the following additional information: Pharyngitis, Strep (Confirmed) Amoxicillin Trihydrate Oral tablet (Electronically signed by Melva Sweeney P.A.-C 08/16/2016 16:25)
== END 2016-08-16 15:45 | disposition home or self-care (01) ==
LOC: ED SRH 13:38
DX: J02.9 Acute pharyngitis, unspecified (principal); E11.9 Type 2 diabetes mellitus without complications; I10 Essential (primary) hypertension; Z79.84 Long term (current) use of oral hypoglycemic drugs; Z79.899 Other long term (current) drug therapy; Z88.5 Allergy status to narcotic agent; Z88.2 Allergy status to sulfonamides; Z88.8 Allergy status to other drugs, medicaments and biological substances
CPT/HCPCS: 90098; 90154

== ENCOUNTER 2016-10-03 22:33 | Inpatient (IN) | payer MEDICARE, OTHER ==
[~2016-10-03] VITALS: Ht 154.9 cm; Wt 78.5 kg
[2016-10-04] VITALS (7 sets, daily range): BP systolic 121–139; BP diastolic 76–100
--- NOTE | 2016-10-04 02:58 | ED NURSING NOTES ---
Clinical Report - Nurses [facility] [address] [place] [address] 10/03/2016 22:34 Patient: BELLA AVERY TRIAGE Triage time 22:39. Acuity: LEVEL 4. Chief Complaint: LOW BACK PAIN and LEFT-SIDED FLANK PAIN (Onset this AM around 0500; Pain in L flank and LUQ/LLQ, pain described as "pulsating, pounding." Alleviating factors: None, Aggravating factors: moving, lying down. HX of kidney stones. Pain has gotten worse since this morning.). 22:43 10/03/16. Alert. SEPSIS SCREEN: Sepsis Screen: negative. Infection suspected/documented. --22:44 Jose L Jose R.N. 22:38 10/03/16. BP: 160/126 (regular adult cuff) taken on the left arm, via an automated monitor, while lying. HR: 136 (tachycardic). RR: 30 (regular, unlabored and normal). O2 saturation: 99% on room air. Temp: 102.9 F (oral). Pain level now: 12/18. --22:44 Jose L Jose R.N. Weight: 83.9 kg stated. Height/Length: 61 inches Per Patient. BMI: 35. --22:41 Jose L Jose R.N. Medications DayQuil Sore Throat and Cough. Lisinopril Oral 20 mg, daily. MetFORMIN HCl Oral 500 mg, daily. Seritriptoline 50mg 3 tabs for sleeping . SEROquel Oral 100 mg, 2x a day. --04:03 Jose L Jose R.N. Allergies Codeine. Darvocet. Pyridium. Sulfa Antibiotics. --04:03 Jose L Jose R.N. History Arrived by private vehicle. Historian: patient. Unaccompanied. Primary physician ([facility]). This started today. She has had severe, constant, sharp, crampy left-sided flank pain with nausea, vomiting, fever and dysuria. Last oral intake by patient was dinner today. 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 Symptoms did not improve after treatment. PAST MEDICAL HX: Last normal menstrual period- tubal ligation 3 years ago. Has had a tubal ligation. SOCIAL HX: Never smoker. History of heavy drug use: marijuana. Recently used drugs today. No alcohol use. She has not traveled outside the [place] The patient was not exposed to MRSA. ABUSE ASSESSMENT: Abuse assessment: The patient was asked "Do you feel safe in your home?" and "Has anyone hurt you or threatened to hurt you?". No report of abuse. SELF HARM ASSESSMENT: A self harm assessment was performed. The patient answered "no" to the question "Do you have thoughts of harming or killing yourself?" and "Have you recently had thoughts about harming or killing others?". FALL RISK ASSESSMENT: Fall risk assessment completed. No fall risk identified. NUTRITIONAL RISK ASSESSMENT: The nutritional risk assessment revealed no deficiencies. FUNCTIONAL ASSESSMENT: Functional assessment: no impairments noted. LEARNING NEEDS ASSESSMENT: The learning needs assessment revealed no barriers. SKIN INTEGRITY ASSESSMENT: Skin integrity risk assessment completed. No skin integrity risk identified. --22:44 Jose L Jose R.N. PROBLEMS: Nausea. Renal Colic. Ureterolithiasis. Knee Injury. Diabetes Mellitus. Sinusitis. Pharyngitis. Bronchitis. URI. Acute Otalgia. Dental Caries. Headache. Hyperglycemia. Leukocytosis. Substance Abuse. Anemia. Dehydration. Abdominal Pain. Chronic Back Pain. UTI - Urinary Tract Infection. Nephrolithiasis. Back Pain. Colitis. Endometriosis. STD - Sexually Transmitted Disease. Hypertension. Immunizations. LNMP - Last Normal Menstrual Period. --04:04 Jose L Jose R.N. Pelvic Inflammatory Disease [RuleOut]. --04:04 Jose L Jose R.N. ADDITIONAL SURGERIES: Cholecystectomy. Tubal Ligation. --04:04 Jose L Jose R.N. Assessment GENERAL / NEURO / PSYCH: Alert. Oriented X 4. Appears in pain. [place] Coma Scale: 15- eyes open spontaneously (4); best verbal response- oriented x 4 (5); best motor response- obeys commands (6). Patient appears calm and cooperative. RESPIRATORY: Respirations not labored. SKIN: Skin is warm. Skin is diaphoretic. --22:44 Jose L Jose R.N. Interventions ID band on patient. To treatment room. --22:44 Jose L Jose R.N. PHYSICAL ASSESSMENT Ambulatory to room. GENERAL / NEURO / PSYCH: Alert. Oriented X 4. Appears in pain. RESPIRATORY: Respirations not labored. Breath sounds within normal limits. ( Tachypnea noted.). CVS: Cardiac rhythm: sinus tachycardia. Heart sounds within normal limits. Pulses: right radial 2+ and left radial 2+. Capillary refill less than 2 seconds. GI / : Obesity. Abdomen soft. Abdominal tenderness in the left upper quadrant and left side of the abdomen. Bowel sounds within normal limits. CVA tenderness on the right and left (Mild on the R, severe on the L). SKIN: Skin is warm. Skin is diaphoretic. --23:06 Jose L Jose R.N. NURSING PROGRESS NOTES The initial plan of care for this patient has been created This plan of care was discussed with the patient. Pulse oximeter and NIBP monitor placed on patient. Patient gowned. Reassurance given to the patient. Two patient identifiers checked. Call light placed in reach. Side rails up x 1. Bed placed in lowest position. Brakes of bed on. Patient ready for evaluation- ED physician and PA notified. --22:44 Jose L Jose R.N. Cardiac rhythm: sinus tachycardia. --23:05 Jose L Jose R.N. 23:04 10/03/16. BP: 162/94 (regular adult cuff) taken on the right arm, via an automated monitor, while sitting. HR: 126 (regular and tachycardic). RR: 24 (regular, unlabored and rapid). O2 saturation: 100% on room air. --23:05 Jose L Jose R.N. 23:10/03/2016 Site #1 started via IV in the left upper arm with an 20g angiocath, with aseptic technique and good blood return; one attempt. Blood drawn: rainbow set and cultures x1. Labeled in the presence of the patient and sent to the lab. Saline lock flushed with 10 mL saline. --23:07 Jose L Jose R.N. 23:07 10/03/2016 Started bag #1 1000 mL IV Fluids IV NS (Saline); at 1000 mL/hr over 1 hour(s) via site #1. Allergies verified and confirmed 5 rights. IV patency established. IV site checked: no pain, redness, or swelling. IV flushed thoroughly pre- and post-medication administration. Completed per protocol. --23:07 Jose L Jose R.N. 23:08 10/03/2016 Morphine IVP 4 mg given over 2 minute(s) via site #1. Allergies verified, confirmed 5 rights and sedative warning given to the patient. IV patency established. IV site checked: no pain, redness, or swelling. IV flushed thoroughly pre- and post-medication administration. IVP given by RN. --23:08 Jose L Jose R.N. 23:08 10/03/2016 Zofran (Ondansetron HCl) IVP 4 mg given over 2 minute(s) via site #1. Allergies verified and confirmed 5 rights. IV patency established. IV site checked: no pain, redness, or swelling. IV flushed thoroughly pre- and post-medication administration. IVP given by RN. --23:08 Jose L Jose R.N. 23:32 10/03/2016 Morphine IVP 4 mg given over 2 minute(s) via site #1. Allergies verified, confirmed 5 rights and sedative warning given to the patient. IV patency established. IV site checked: no pain, redness, or swelling. IV flushed thoroughly pre- and post-medication administration. IVP given by RN (Okay to give 1/2 ordered dose at this time per Dr. Clemente.). --23:32 Jose L Jose R.N. 23:32 10/03/2016 PHENERGAN (Promethazine HCl) IVP 25 mg given over 2 minute(s) via site #1. Allergies verified and confirmed 5 rights. IV patency established. IV site checked: no pain, redness, or swelling. IV flushed thoroughly pre- and post-medication administration. IVP given by RN. --23:32 Jose L Jose R.N. 23:51 10/03/2016 Started 1 gm of Ceftriaxone IVPB in bag #1 50 mL; at 100 mL/hr over 20 minute(s) via site #1; Allergies verified and confirmed 5 rights. IV patency established. IV site checked: no pain, redness, or swelling. IV flushed thoroughly pre- and post-medication administration. Completed per protocol. --23:51 Jose L Jose R.N. Reassessment after medication administered. She is calm and resting quietly. Overall patient status is improved- she states feels better. SKIN: Skin is warm and dry. --23:51 Jose L Jose R.N. 23:51 10/03/16. BP: 152/92 (regular adult cuff) taken on the right arm, via an automated monitor, while lying. HR: 120 (tachycardic). RR: 14 (regular, unlabored and normal). O2 saturation: 98% on room air. --23:51 Jose L Jose R.N. 00:06 10/04/16. BP: 101/69 (regular adult cuff) taken on the right arm, via an automated monitor, while lying. HR: 116 (normal rate). RR: 14 (regular, unlabored and normal). O2 saturation: 99% on room air. --00:07 Jose L Jose R.N. The patient is calm and resting quietly. Overall patient status is improved- she states feels better. --00:07 Jose L Jose R.N. 00:08 10/04/2016 Morphine IVP Response: no adverse reaction. --00:09 Jose L Jose R.N. 00:10/04/2016 Zofran IVP Response: no adverse reaction. --00:09 Jose L Jose R.N. 00:10/04/2016 Morphine IVP Response: no adverse reaction the patient feels better. --00:09 Jose L Jsoe R.N. 00:10/04/2016 PHENERGAN IVP Response: no adverse reaction pain is improving. Symptoms have improved the patient feels better. --00:09 Jose L Jose R.N. 00:10 10/04/2016 Ceftriaxone IVPB Discontinued: bag #1 completed upon discharge. Total amount infused: 50 mL. IV patency established. IV site checked: no pain, redness, or swelling. IV flushed thoroughly. --00:10 Jose L Jose R.N. ( Bella ambulated to bathroom, gait WNL. NAD.). --00:29 Jose L Jose R.N. 00:49 10/04/2016 Toradol IVP 30 mg given over 2 minute(s) via site #1. Allergies verified and confirmed 5 rights. IV patency established. IV site checked: no pain, redness, or swelling. IV flushed thoroughly pre- and post-medication administration. IVP given by RN. --00:49 Jose L Jose R.N. Patient transported to [facility] by stretcher. (00:54). --00:54 Akhil Lama R.N. Patient returned from [facility] by stretcher. (01:05). --01:05 Akhil Lama R.N. 01:30 10/04/16. BP: 159/96 (regular adult cuff) taken on the right arm, via an automated monitor, while sitting. HR: 115 (tachycardic). RR: 18 (regular, unlabored and normal). O2 saturation: 96% on room air. --01:30 Jose L Jose R.N. The patient is calm and resting quietly. SKIN: Skin is warm and dry. --02:28 Jose L Jose R.N. ( PO challenge initiated. Gave pt water.). --02:39 Jose L Jose R.N. ( PO challenge well-tolerated. Pt sleeping.). --02:51 Jose L Jose R.N. 01:00 10/04/2016 IV Fluids IV NS Discontinued: bag #1 completed upon admission. Total amount infused: 1000 mL. --03:49 Jose L Jose R.N. 01:26 10/04/2016 Benadryl (DiphenhydrAMINE HCl) IVP 50 mg given over 2 minute(s) via site #1. Allergies verified, confirmed 5 rights and sedative warning given to the patient. IV patency established. IV site checked: no pain, redness, or swelling. IV flushed thoroughly pre- and post-medication administration. IVP given by RN. --01:26 Jose L Jose R.N. 02:07 10/04/2016 Started bag #1 1500 mL IV Fluids IV NS (Saline); at 1500 mL/hr over 1 hour(s) via site #1. Allergies verified and confirmed 5 rights. IV patency established. IV site checked: no pain, redness, or swelling. IV flushed thoroughly pre- and post-medication administration. Completed per protocol. --02:07 Jose L Jose R.N. 02:08 10/04/2016 PHENERGAN (Promethazine HCl) IVP 25 mg given over 2 minute(s) via site #1. Allergies verified and confirmed 5 rights. IV patency established. IV site checked: no pain, redness, or swelling. IV flushed thoroughly pre- and post-medication administration. IVP given by RN. --02:08 Jose L Jose R.N. 03:14 10/04/2016 Site #1. Infiltration Scale: Grade 3- skin blanched with mild to moderate pain(IV site removed). --03:14 Selam Merchant 03:14 10/04/2016 Site #1 removed. Catheter intact. Bandaid applied. --03:14 Selam Merchant 03:14 10/04/2016 Site #2 started via IV in the right antecubital space with an 20g angiocath, with aseptic technique and good blood return; one attempt. Saline lock flushed with 10 mL saline. --03:14 Selam Merchant 03:49 10/04/2016 Started 1 gm of Ceftriaxone IVPB in bag #1 50 mL; at 100 mL/hr over 30 minute(s) via site #2; Allergies verified and confirmed 5 rights. IV patency established. IV site checked: no pain, redness, or swelling. IV flushed thoroughly pre- and post-medication administration. Completed per protocol. --03:49 Jose L Jose R.N. 03:48. Checked patient name and birthdate. Blood samples drawn from the left hand with butterfly by tech per protocol ; labeled in presence of the patient and sent to lab: blood culture (2nd set). --03:52 McQuoid, Erin, ER Tech1 03:55 10/04/2016 Ativan (LORazepam) IVP 1 mg given over 2 minute(s) via site #2. Allergies verified, confirmed 5 rights and sedative warning given to the patient. IV patency established. IV site checked: no pain, redness, or swelling. IV flushed thoroughly pre- and post-medication administration. IVP given by RN. --03:55 Jose L Jose R.N. 03:55 10/04/2016 PHENERGAN IVP Response: no adverse reaction. --03:55 Jose L Jose R.N. 03:55 10/04/2016 IV Fluids IV NS Continued: upon admission at the rate of 1000 mL/hr. 700 mL remaining bag #2. IV patency established. IV site checked: no pain, redness, or swelling. IV flushed thoroughly. --03:55 Jose L Jose R.N. 03:56 10/04/2016 Toradol IVP Response: no adverse reaction. --03:56 Jose L Jose R.N. 03:56 10/04/2016 Benadryl IVP Response: no adverse reaction. --03:56 Jose L Jose R.N. 03:56 10/04/2016 Ceftriaxone IVPB Continued: upon admission at the rate of 100 mL/hr. 90 mL remaining bag #2. IV patency established. IV site checked: no pain, redness, or swelling. IV flushed thoroughly. --03:56 Jose L Jose R.N. DISPOSITION / DISCHARGE 03:47 10/04/16. BP: 152/94 (regular adult cuff) taken on the right arm, while lying. HR: 126 (regular and normal rate). RR: 24 (regular, unlabored and rapid). O2 saturation: 99% on room air. Temp: 101.2 F (oral). Pain level now: 12/18. --03:48 Jose L Jose R.N. Departure time: 04:00. Admitted to Acute Care (04:00 AM). ( Facility tech took the pt to room 301.). --04:02 Akhil Lama R.N. Transported via stretcher by transport team with IV. Patient's personal items include: coat and purse; items were placed in belongings bag, given to the patient and transported with the patient. Collection of belongings was witnessed by 1 nurse. --04:02 Jose L Jose R.N. Locked/Released at 10/04/2016 4:04 by Jose L Jose R.N.
--- NOTE | 2016-10-04 02:58 | ED CLINICAL REPORT ---
Clinical Report - Physicians/Mid Levels [facility] [address] [place] [address] 10/03/2016 22:34 Patient: BELLA AVERY Time Seen: 2240. Arrived- By private vehicle. Historian- patient. HISTORY OF PRESENT ILLNESS Chief Complaint: FLANK PAIN and left sided. This started today and is still present (worsening). It was gradual in onset and has been constant and waxing/waning but is not gone now. At its maximum, severity described as severe. When seen in the E.D., severity described as severe. Modifying factors- worsened by movement. Relieved by rest. It is described as sharp. No radiation. It is described as located in the left flank. The patient has had nausea and vomiting. No loss of appetite or diarrhea. No additional abdominal pain. No recent travel. Similar symptoms previously: None. Recent medical care: Not recently seen/assessed. REVIEW OF SYSTEMS No constipation, chest pain, difficulty breathing or skin rash. The patient has had urinary frequency. All systems otherwise negative, except as recorded above. PAST HISTORY See nurses notes. Medications: DayQuil Sore Throat and Cough. Lisinopril Oral 20 mg, daily. MetFORMIN HCl Oral 500 mg, daily. Seritriptoline 50mg 3 tabs for sleeping . SEROquel Oral 100 mg, 2x a day. Allergies: Codeine. Darvocet. Pyridium. Sulfa Antibiotics. SOCIAL HISTORY Never smoker. History of drug use: marijuana. No alcohol use. No recent travel. Is a local resident. FAMILY HISTORY (no family history of kidney stones). ADDITIONAL NOTES The nursing notes have been reviewed. PHYSICAL EXAM Vital Signs: 10/03/2016 22:38 BP: 160/126. HR: 136. RR: 30. O2 saturation: 99%. Temp: 102.9 F. Pain level now: 6/10. Blood pressure normal. Oxygen saturation normal. Appearance: Alert. Oriented X3. Patient in mild distress. Eyes: Pupils equal, round and reactive to light. Eyes normal inspection. ENT: Ears normal. Nose normal. Pharynx normal. Neck: Normal inspection. Neck supple. CVS: Normal heart rate and rhythm. Heart sounds normal. Pulses normal. Respiratory: No respiratory distress. Breath sounds normal. Chest nontender. Abdomen: Soft and nontender. Bowel sounds normal. Back: Normal inspection. Moderate CVA tenderness on the left. (no step offs. no crepitus. no overlying skin changes.). Skin: Skin warm and dry. Normal skin color. No rash. Normal skin turgor. Extremities: Extremities exhibit normal ROM. No lower extremity edema. LABS, X-RAYS, AND EKG Abdominal CT: left pyelonephritis. Study type: abdomen and pelvis. Abdominal CT performed with IV contrast. The study was independently viewed by me, interpreted by the radiologist and discussed with the radiologist. Laboratory Tests: Lactate, Serum: (LORETO: 10/04/2016 02:15) ( [facility] 10/04/2016 02:55) Final results Test Result Flag Units (Reference) LACTIC ACID 1.9 mmol/L (0.4-2.0) [id number]: (LORETO: 10/04/2016 02:15) ( [facility] 10/04/2016 02:40) Final results Test Result Flag Units (Reference) POTASSIUM 4.4 # mmol/L (3.5-5.1) UA-Culture if indicated: (LORETO: 10/03/2016 22:45) ( [facility] 10/03/2016 23:09) Final results Test Result Flag Units (Reference) URINE COLOR YELLOW URINE APPEARANCE SLIGHTLY HAZY URINE GLUCOSE NEGATIVE (NEGATIVE) URINE BILIRUBIN NEGATIVE (NEGATIVE) URINE KETONE NEGATIVE (NEGATIVE) URINE SPECIFIC GRAVITY 1.015 (1.010-1.030) URINE PH 7.0 (5.0-8.0) URINE PROTEIN 1+ (NEGATIVE) URINE UROBILINOGEN 0.2 EU/dL (0.2-1.0) URINE NITRITE NEGATIVE (NEGATIVE) URINE BLOOD 1+ (NEGATIVE) URINE LEUK ESTERASE POSITIVE (NEGATIVE) URINE RBC 3-5 rbc/hpf (0-1) URINE WBC 10-15 wbc/hpf (0-1) URINE EPITHELIAL CELLS 1-3 EPI/hpf (0-5) URINE BACTERIA TRACE (<1+) (NONE SEEN) URINE COMMENT CULTURE INDICATED URINE CULTURES ARE SET-UP BASED ON THE FOLLOWING CRITERIA:POSITIVE NITRITEPOSITIVE LEUKOCYTE ESTERASEGREATER THAN 10 WHITE BLOOD CELLSMODERATE (2+) OR GREATER BACTERIA CBC w Diff: (LORETO: 10/03/2016 23:00) ( [facility] 10/03/2016 23:15) Final results Test Result Flag Units (Reference) WHITE BLOOD COUNT 13.8 H K/uL (4.5-11.5) RED BLOOD COUNT 5.17 M/uL (4.00-5.20) HEMOGLOBIN 13.6 gm/dL (12.0-16.0) HEMATOCRIT 40.6 % (36.0-46.0) MEAN CELL VOLUME 79 L fL (80-100) MEAN CORPUSCULAR HGB 26 pg (26-34) MEAN CORPUSCULAR HGB CONC 34 g/dL (31-37) RED CELL DISTRIBUTION WIDTH 15.5 H % (11.6-14.8) PLATELET COUNT 401 H K/uL (150-400) NEUTROPHIL % 80.7 H % (50-75) LYMPH % 13.0 L % (25-40) MONO % 5.1 % (3-14) EOSINOPHIL % 0.5 % (0-4) BASOPHIL % 0.7 % (0-2) Urine Drug Screen: (LORETO: 10/03/2016 22:45) ( [facility] 10/03/2016 23:22) Final results Test Result Flag Units (Reference) AMPHETAMINE/METHAMPHETAMINE NEGATIVE (NEGATIVE) BARBITURATE NEGATIVE (NEGATIVE) BENZODIAZEPINE NEGATIVE (NEGATIVE) CANNABINOID POSITIVE H (NEGATIVE) COCAINE NEGATIVE (NEGATIVE) ECSTASY NEGATIVE (NEGATIVE) METHADONE NEGATIVE (NEGATIVE) OPIATE NEGATIVE (NEGATIVE) The urine drug screen is a qualitative screening test fordrug overdose and abuse. All screen results should beconsidered as presumptive.Drugs screened for are as follows:BenzodiazepinesCocaineAmphetamines/MetamphetaminesTHC (Tetrahydrocannabinol)OpiatesBarbituratesEcstasyMethadonePositive results are unconfirmed. For confirmation, notifythe lab for the specimen to be sent to the reference lab.All confirmations must be performed by a differentmethodology.The ingestion of natural herbal and plant productscontaining Ephedra/Ephedra metabolites can produce in urineone or more substances capable of cross reacting withamphetamine/methamphetamine immunoassays. These testsprovide a preliminary result only. A more specificalternative chemical method must be used to obtain aconfirmed analytical result. Lactate, Serum: (LORETO: 10/03/2016 00:00) ( MsgRcvd 10/04/2016 00:46) Final results Test Result Flag Units (Reference) LACTIC ACID 3.3 H mmol/L (0.4-2.0) CMP: (LORETO: 10/03/2016 23:00) ( MsgRcvd 10/04/2016 00:23) Final results Test Result Flag Units (Reference) GLUCOSE 236 H mg/dL (70-110) BUN 11 mg/dL (7-18) CREATININE 0.8 mg/dL (0.6-1.3) Estimated GFR >60 mL/min Estimated GFR- >60 mL/min Note: Persistent reduction over 3 months in eGFR<60 mL/min/1.73 m2 defines CKD. Patients with eGFR values>=60 mL/min/1.73 m2 may also have CKD if evidence ofpersistent proteinuria. Additional information may be foundat [email or web address].org. SODIUM 133 L mmol/L (136-145) POTASSIUM 5.5 H mmol/L (3.5-5.1) CHLORIDE 98 mmol/L (98-107) CARBON DIOXIDE 26 mmol/L (21-32) CALCIUM 9.8 mg/dL (8.5-10.1) TOTAL PROTEIN 8.7 H g/dL (6.4-8.2) ALBUMIN 3.7 g/dL (3.3-5.0) BILIRUBIN, TOTAL 0.7 mg/dL (0.0-1.0) ALKALINE PHOSPHATASE 83 U/L (46-116) AST (SGOT) 38 H U/L (15-37) ALT (SGPT) 22 U/L (12-78) LIPASE 64 L U/L (73-393) BETA HCG, QUANTITATIVE <1 mIU/mL REFERENCE RANGE:Adult Males: <2 mIU/mLNon- Females: <6 mIU/mL Females:Approximate Approximate hCGGestational Age Range (mIU/mL) 0-1 week 0-501-2 weeks 40-3002-3 weeks 100-51590-7 weeks 500-52191-7 months 5,000-200,0002-3 months 10,000-100,0002nd trimester 3,000-50,0003rd trimester 1,000-50,000 . PROGRESS AND PROCEDURES Course of Care: The patient is a pleasant 31 yo female with no pertinent past medical history presenting for evaluation of left flank pain. Patient with urinary symptoms and fever. Patient does not have any back tenderness. Do not feel this is paraspinal infection. Work up ordered for pyelo. Pain medication provided and fluids ordered for tachycardia. Patient with +UA and pain difficult to control. Patient remains tachy. Additional fluids ordered. Trial of PO challenge after different nausea medication provided as patient requested to go home. Expressed my concerns with keeping fluids and medications down. Abx ordered. Patient able to hold fliuds down however nausea returned. Patient also persistently tachy albeit improved. Blood cultures were drawn prior to abx given and placed on hold. patient needs to be admitted due to condition and cultures were placed. Lactic noted to be improved. Spoke with hospitalist and additional gram of ceftriaxone recommended. abx given. Patient with normal mentation and good BP. Do not feel patient needs to be admitted to the ICU at this time. Does need tele. Patient agreeable to the treatment and plan. Work up and diagnosis discussed. All questions answered. Critical care performed (60 minutes). Time is exclusive of separately billable procedures. Time includes: direct patient care, patient reassessment, coordination of patient care, review of patient's medical records, medical consultation and documentation of patient care. Disposition: Admitted to Acute Care. CLINICAL IMPRESSION Vomiting with nausea. 10/04/2016 01:30 BP: 159/96. HR: 115. RR: 18. O2 saturation: 96%. Hypertensive. Oxygen saturation normal. Acute pyelonephritis (left). Moderate dehydration (acute). Essential hypertension. (acute hyperkalemia). sepsis acute pyelonephritis acute left sided lactic acidosis, resolved. INSTRUCTIONS Warnings: GENERAL WARNINGS: Return or contact your physician immediately if your condition worsens or changes unexpectedly, if not improving as expected, or if other problems arise. SPECIFICALLY, return if you develop pain, fever, vomiting, the inability to keep fluids down, blood in vomitus, blood in diarrhea, fainting or lightheadedness. Prescription Medications: Cephalexin 500 mg: take 1 capsule orally every 8 hours for 10 days. No refill. (disp 30 caps) Percocet 5 mg/325 mg: take 1 tablet orally every 6 hours as needed for pain. Dispense twelve (12). No refill. Substitution is permissible. Phenergan Tablets 25 mg: take 1 tablet orally every 6 hours as needed for nausea and vomiting. Dispense fifteen (15). No refill. Substitution is permissible Follow-up: Return to the emergency department as needed. Follow up with your doctor in two days. Reason for referral: recheck today's concerns. Summary of care provided to patient via paper. Screening today revealed the patient's blood pressure to be in the normal range. The patient should follow up with a primary care provider for blood pressure management. Understanding of the discharge instructions verbalized by patient. (Electronically signed by Aries Clemente Dr. 10/10/2016 9:22)
--- NOTE | 2016-10-04 02:59 | ED ORDER SUMMARY ---
..... Patient: BELLA AVERY OrderSheet [facility] VisitID: [id number] [place] [address] 31y, F Registration Date/Time: 10/03/2016 ORDER SHEET Weight: 83.9 kg (stated) Allergies: Codeine, Darvocet, Pyridium, Sulfa Antibiotics GENERAL ORDERS: CBC w Diff Urgent (22:48 10/03/2016 Álvaro Paul) (Ack 22:51 AMcQuoid ER Tech1) (23:07 JDeElena R.N.) CMP Urgent (22:48 10/03/2016 Álvaro Paul) (Ack 22:51 AMcQuoid ER Tech1) (23:07 JDeElena R.N.) UA-Culture if indicated Urgent (22:48 10/03/2016 Álvaro Paul) (Ack 22:51 AMcQuoid ER Tech1) (23:07 JDeElena R.N.) Urine Drug Screen Urgent (22:48 10/03/2016 Álvaro Paul) (Ack 22:51 AMcQuoid ER Tech1) (23:07 JDeElena R.N.) Lactate, Serum Urgent (22:48 10/03/2016 Álvaro Paul) (Ack 22:51 AMcQuoid ER Tech1) (0:00 JDeElena R.N.) Serum Quantitative Urgent (22:48 10/03/2016 Álvaro Paul) (Ack 22:51 AMcQuoid ER Tech1) (23:07 JDeElena R.N.) Lipase Urgent (22:48 10/03/2016 Álvaro Paul) (Ack 22:51 AMcQuoid ER Tech1) (23:07 JDeElena R.N.) CT Abd/Pel w Cont (No) (GFR >60) Urgent (00:46 10/04/2016 Álvaro Paul) (Ack 0:52 AMcQuoid ER Tech1) (0:54 TLewis R.N.) Potassium Urgent (01:50 10/04/2016 Álvaro Paul) (Ack 1:51 AMcQuoid ER Tech1) (2:10 TLewis R.N.) Lactate, Serum Urgent (01:57 10/04/2016 Álvaro Paul) (Ack 2:01 AMcQuoid ER Tech1) (2:10 TLewis R.N.) PO Fluids (02:37 10/04/2016 Álvaro Paul) (2:38 JDamon R.N.) Blood Culture (No) (N/A) Urgent (03:12 10/04/2016 Álvaro Paul) (Ack 3:17 HSoule) (3:47 JBrandina R.N.) MEDICATION ORDERS: Phenergan IV 25 mg (HIGH ALERT MEDICATION, NOW) (23:26 10/03/2016 Álvaro Paul) (23:32 Jessika Durán.N.) Phenergan IV 25 mg (HIGH ALERT MEDICATION, NOW) (02:07 10/04/2016 Jessika Durán.NCherie verbal order read back to Álvaro Paul) (2:08 Jessika R.N.) IV FLUIDS: IV NS : initial bolus 1000 mL (1000 mL/hr), then none - for X1 (NOW) (22:47 10/03/2016 Álvaro Paul) (Ack 23:01 Victorianowis R.N.) (23:07 Jessika R.N.) Morphine IV 4 mg (HIGH ALERT MEDICATION, NOW) (22:48 10/03/2016 Álvaro Paul) (Ack 23:01 Victorianowis R.N.) (23:08 Jessika R.N.) Zofran IV 4 mg (NOW) (22:59 10/03/2016 Álvaro Paul) (Ack 23:01 Victorianowis R.N.) (23:08 Jessika R.N.) Morphine IV 8 mg (HIGH ALERT MEDICATION, NOW) (23:25 10/03/2016 Álvaro Paul) (23:32 Jessika SerratoN.) Ceftriaxone IV 1 gm/50mL (NOW) (23:44 10/03/2016 Álvaro Paul) (Ack 23:47 Jessika R.N.) (23:51 Jessika R.N.) Toradol IV 30 mg (NOW) (00:39 10/04/2016 Álvaro Paul) (0:49 Jessika R.N.) Benadryl IV 50 mg (NOW) (01:15 10/04/2016 Álvaro Paul) (Ack 1:21 JDamon R.N.) (1:26 Jessika R.N.) IV NS : initial bolus 1.5L, then none - for X1 (NOW) (01:56 10/04/2016 Álvaro Paul) (Ack 1:57 Jessika R.N.) (2:07 Jessika R.N.) Ceftriaxone IV 1 gm/50mL (NOW) (03:08 10/04/2016 Álvaro Paul) (Ack 3:14 HSoule) (3:49 JDamon R.N.) Ativan IV 1 mg (HIGH ALERT MEDICATION, NOW) (03:50 10/04/2016 Álvaro Paul) (3:55 Jessika R.N.) ORDER SHEET NOTES: [Electronically signed by Jose L Jose R.N. (04:04 10/04/2016)] [Electronically signed by Aries Clemente Dr. (09:22 10/10/2016)] [Electronically locked/signed by Jose L Jose R.N. (04:04 10/04/2016)]
[2016-10-04] MEDS ORDERED: METFORMIN HCL500 MG PO ×2 (04:39→19:20)
--- NOTE | 2016-10-04 06:06 | History & Physical Report ---
Admission Admit Date 10/04/16 History Chief Complaint Flank Pain, Fever History of Present Illness Patient is a 31 year old female with no past medical history who presents to the ER at [facility] complaining of left flank pain and fever for the last day. Pt states her symptoms began approx 24 hours ago with dysuria which quickly resulted in left flank pain. Pt states her pain is an intense dull sensation over her left flank which is non radiating. Pt denies any associated hematuria. She reports she does have a hx of Nephrolithiasis and this felt similar. Pt states throughout the day she developed fever as well as significant nausea with vomiting in the evening. Pt states she has also had chills. She is unable to tolerate any PO at this point. Pt has no other complaints or concerns at this time. Patient History 1. Marijuana use Social History Pt reports heavy marijuana use. She denies use of tobacco and alcohol. Family History Family history was reviewed; no changes noted. Medications and Allergies Medications Current Medications Sig/Дмитрий Start time Last Medication Dose Route Stop Time Status Admin Ceftriaxone Sodium/ 50 ML DAILY 10/04 0900 UNV Dextrose IV Acetaminophen 650 MG Q4H PRN 10/04 0600 UNV PO Docusate Sodium 250 MG BID PRN 10/04 0600 UNV PO Hydromorphone HCl 1 MG Q6H PRN 10/04 0600 UNV IV Naloxone HCl 0.4 MG PRN PRN 10/04 0600 UNV IV Ondansetron HCl 4 MG Q6H PRN 10/04 0600 UNV IV Sodium Chloride 1,000 ML ASDIRECTED 10/04 0600 UNV IV Zolpidem Tartrate 5 MG QHS PRN 10/04 0600 UNV PO Acetaminophen 650 MG Q6H PRN 10/04 0530 AC PO Sodium Chloride 1,000 ML ASDIRECTED 10/04 0530 AC IV Hydromorphone HCl 1 MG Q4H PRN 10/04 0315 AC 10/04 IV 0412 Ondansetron HCl 4 MG Q8H PRN 10/04 0315 AC 10/04 IV 0411 Allergies Coded Allergies: Codeine (Severe, PROBLEMS WITH BREATHING AND ITCHING 10/04/16) Phenazopyridine (From PYRIDIUM) (BLADDER SPASMS 10/04/16) Sulfa Antibiotics (10/04/16) Acetaminophen (From DARVOCET-N) (Intermediate, N/V 10/04/16) Propoxyphene (From DARVOCET-N) (Intermediate, N/V 10/04/16) Review of Systems Other All systems reviewed and are negative except for what has already been mentioned in the HPI. Physical Exam Vital Signs / I&Os Vital Signs Date Time Temp Pulse Resp B/P Pulse O2 O2 Flow FiO2 Ox Delivery Rate 10/04 0514 Room Air 10/04 0420 102.2 122 22 139/88 97 Room Air 0.0 Other GENERAL: NAD; Pt laying comfortably in bed HEENT: AT/NC; PERRLA, EOMI; MM Moist CARDIAC: RRR, No M/R/G appreciated PULM: Clear to auscultation bilaterally ABD: Soft, NT, ND, Positive BS in all quadrants; No hepatosplenomegaly appreciated; Left CVA tenderness present EXT: No C/C/E in bilateral upper and lower extremity; No calve tenderness bilaterally SKIN: Warm, dry, pink, and intact NEURO: Alert and oriented x3; Following all commands PSYCH: Normal mood and affect LAB Results Laboratory Tests 10/04 10/04 10/03 10/03 0215 0215 2300 2245 Chemistry Plasma Sodium (136 - 145 mmol/L) 133 Plasma Potassium (3.5 - 5.1 mmol/L) 4.4 5.5 Plasma Chloride (98 - 107 mmol/L) 98 CO2 (Enzymatic) (21 - 32 mmol/L) 26 BUN (7 - 18 mg/dL) 11 Creatinine (0.6 - 1.3 mg/dL) 0.8 Est GFR ( Amer) (mL/min) >60 Est GFR (Non-Af Amer) (mL/min) >60 Glucose (70 - 110 mg/dL) 236 Lactic Acid (0.4 - 2.0 mmol/L) 1.9 Plasma Calcium (8.5 - 10.1 mg/dL) 9.8 Total Bilirubin (0.0 - 1.0 mg/dL) 0.7 AST (15 - 37 U/L) 38 ALT (12 - 78 U/L) 22 Alkaline Phosphatase (46 - 116 U/L) 83 Total Protein (6.4 - 8.2 g/dL) 8.7 Albumin (3.3 - 5.0 g/dL) 3.7 Lipase (73 - 393 U/L) 64 Beta HCG, Quant (mIU/mL) <1 Hematology WBC (4.5 - 11.5 K/uL) 13.8 RBC (4.00 - 5.20 M/uL) 5.17 Hgb (12.0 - 16.0 gm/dL) 13.6 Hct (36.0 - 46.0 %) 40.6 MCV (80 - 100 fL) 79 MCH (26 - 34 pg) 26 RDW (11.6 - 14.8 %) 15.5 Neut % (Auto) (50 - 75 %) 80.7 Lymph % (Auto) (25 - 40 %) 13.0 [place] % (Auto) (3 - 14 %) 5.1 Eos % (Auto) (0 - 4 %) 0.5 Baso % (Auto) (0 - 2 %) 0.7 Plt Count, EDTA (150 - 400 K/uL) 401 PUBS MCHC (31 - 37 g/dL) 34 Toxicology Urine Opiates Screen (NEGATIVE) NEGATIVE Urine Methadone Screen (NEGATIVE) NEGATIVE Ur Barbiturates Screen (NEGATIVE) NEGATIVE U Amphetamin/Meth Scrn (NEGATIVE) NEGATIVE MDMA (Ecstasy) Screen (NEGATIVE) NEGATIVE U Benzodiazepines Scrn (NEGATIVE) NEGATIVE Urine Cocaine Screen (NEGATIVE) NEGATIVE U Cannabinoids Screen (NEGATIVE) POSITIVE Urines Urine Color YELLOW Urine Appearance SLIGHTLY HAZY Urine pH (5.0 - 8.0) 7.0 Ur Specific [place] (1.010 - 1.030) 1.015 Urine Protein (NEGATIVE) 1+ Urine Ketones (NEGATIVE) NEGATIVE Urine Blood (NEGATIVE) 1+ Urine Nitrite (NEGATIVE) NEGATIVE Urine Bilirubin (NEGATIVE) NEGATIVE Urine Urobilinogen (0.2 - 1.0 EU/dL) 0.2 Ur Leukocyte Esterase (NEGATIVE) POSITIVE Urine RBC (0 - 1 rbc/hpf) 3-5 Urine WBC (0 - 1 wbc/hpf) 10-15 Ur Epithelial Cells (0 - 5 EPI/hpf) 1-3 Urine Bacteria (NONE SEEN) TRACE (<1+) Urine Glucose (NEGATIVE) NEGATIVE Urine Comment CULTURE INDICATED Microbiology Date/Time Procedure - Status Source Growth 10/04 0553 Blood Culture - ORD BLOOD 10/04 0553 Blood Culture - ORD BLOOD 10/04 0348 Blood Culture - RECD BLOOD 10/04 UNK Blood Culture - RECD BLOOD 10/03 2245 Urine Culture - RECD URINE CC Assessment and Plan Problem List 1. Sepsis Plan - Secondary to Pyelonephritis - Sepsis as evidenced by Tachycardia, Leukocytotis, Fever, and known Locus of Infection - Pt has been bolused with 2 liters of Normal Saline - Start IV Normal Saline at 150 mL/hour - Blood cultures x2 - Urine culture sent from ER - IV Rocephin 2 grams daily - Repeat CBC with diff and chemistry this AM - Monitor lactate - Telemetry monitoring 2. Pyelonephritis Plan - See #1 - Start IV Rocephin 2 grams daily - Urine culture pending - IV Dilaudid PRN for pain 3. Nausea and vomiting Plan - IV Normal Saline - Start IV Zofran PRN 35 minutes critical care time spent managing pts sepsis.
--- NOTE | 2016-10-04 07:52 | DIAGNOSTIC IMAGING REPORT ---
PROCEDURE: CT ABD/PELVIS WITH CONTRAST CLINICAL INDICATION: Left-sided abdominal pain x 1 day, initial encounter. TECHNIQUE: 125 ml of Isovue 300 were injected intravenously and axial images were obtained of the entire abdomen and pelvis with sagittal and coronal reformations. COMPARISON: CT abdomen/pelvis 11/01/2015. FINDINGS: ABDOMEN: Lung base are clear. Heart size is normal. Enlarged liver (23.2 cm) with diffuse steatosis. Cholecystectomy. Borderline splenomegaly (13 cm). Normal adrenal glands and right kidney. Patchy enhancement of the left kidney with minor perinephric stranding consistent with pyelonephritis. Normal abdominal aorta. Nonspecific bowel gas pattern. PELVIS: Normal appendix. Right pelvic surgical clips. Uterus and bladder are normal. Two small right ovarian follicles. No inflammatory changes or free fluid. Bones are unremarkable. IMPRESSION: 1. Left renal inhomogeneous enhancement consistent with pyelonephritis. 2. Hepatomegaly and steatosis 3. Borderline splenomegaly 4. Cholecystectomy and tubal ligation clips 5. Preliminary results submitted by Dr. Ray, [facility] radiology. All CT scans at this facility use dose modulation, iterative reconstruction, and/or weight-based dosing when appropriate to reduce radiation dose to as low as reasonably achievable.
--- NOTE | 2016-10-04 17:38 | DIAGNOSTIC IMAGING REPORT ---
PROCEDURE: XR ABDOMEN 1 VIEW INDICATION: persistent vomiting TECHNIQUE: AP supine and upright views. COMPARISON: None. FINDINGS: Bowel pattern is normal. Soft tissues and osseous structures are normal. IMPRESSION: 1. Normal abdomen.
[2016-10-04] MEDS ORDERED: ZOLOFT50 MG PO (19:21)
[2016-10-04] MEDS ORDERED: SEROQUEL100 MG PO (19:21)
[2016-10-05 02:03] VITALS: BP 147/87
[2016-10-05 06:22] VITALS: BP 143/94
[2016-10-05 10:31] VITALS: BP 148/96
[2016-10-05 14:28] VITALS: BP 135/84
--- NOTE | 2016-10-05 15:44 | Progress Note ---
Subjective General Pt seen and examined. Patient is improving overall and has diminished nausa and vomiting compared to yesterday. Her vital signs have improved tremendously. Constitutional Denies: Fever, Chills, Sweats, Weakness, Malaise, Other. Eyes Denies: Pain, Vision Change, Conjunctival Inflammation, Eyelid Inflammation, Redness, Other. Respiratory Denies: Cough, Dry, SOB w/exertion, Wheezing, Hemoptysis, Pleuritic Pain, Sputum , Other. Cardiovascular Denies: Chest Pain, Palpitations, Orthopnea, PND, Edema, Light-headedness, Other. Gastrointestinal Denies: Nausea, Vomiting, Abdominal Pain, Diarrhea, Constipation, Melena, Hematochezia, Other. Genitourinary Denies: Dysuria, Frequency, Incontinence, Hematuria, Retention, Other. Musculoskeletal Denies: Neck Pain, Shoulder Pain, Arm Pain, Back Pain, Hand Pain, Leg Pain, Foot Pain, Other. Skin Denies: Rash, Lesions, Jaundice, Bruising, Other. Neurological Denies: Weakness, Numbness, Incoordination, Change in speech, Confusion, Seizures, Other. Physical Exam Vital Signs / I&Os Vital Signs Date Time Temp Pulse Resp B/P Pulse O2 O2 Flow FiO2 Ox Delivery Rate 10/05 1428 99.9 103 20 135/84 95 Room Air 10/05 1031 99.0 97 24 148/96 99 Room Air 0.0 10/05 0730 Room Air 10/05 0622 98.1 109 24 143/94 98 Room Air 0.0 10/05 0339 99.1 10/05 0203 100.2 114 21 147/87 100 Room Air 0.0 10/04 2212 104 24 125/81 98 Room Air 0.0 10/04 2151 98.8 10/04 2000 Room Air 10/04 1857 100.4 125 24 131/76 98 Room Air 10/04 1622 145 10/04 1615 101.1 I&O 10/04 0800 10/04 1600 10/05 0000 Intake Total 290 2428 Output Total 300 775 950 Balance -300 -485 1478 General Appearance No acute distress HEENT PERRLA, Moist mucous membranes Lungs Clear to auscultation, Normal air movement Cardiovascular Normal S1 and S2, No murmurs, gallops, rubs Abdomen Soft, No tenderness Pelvic No masses Extremities No edema, Normal pulses, No tenderness Skin No Breakdown, No Significant Lesions Neurological Normal speech, Normal tone, Sensation intact Psych/Mental Status Mood normal LAB Results Laboratory Tests 10/05 0510 Hematology WBC (4.5 - 11.5 K/uL) 12.7 RBC (4.00 - 5.20 M/uL) 3.99 Hgb (12.0 - 16.0 gm/dL) 10.4 Hct (36.0 - 46.0 %) 31.5 MCV (80 - 100 fL) 79 MCH (26 - 34 pg) 26 RDW (11.6 - 14.8 %) 15.1 Neut % (Auto) (50 - 75 %) 78.6 Lymph % (Auto) (25 - 40 %) 12.0 [place] % (Auto) (3 - 14 %) 8.3 Eos % (Auto) (0 - 4 %) 0.8 Baso % (Auto) (0 - 2 %) 0.3 Plt Count, EDTA (150 - 400 K/uL) 236 PUBS MCHC (31 - 37 g/dL) 33 Assessment and Plan Problem List 1. Pyelonephritis Plan - will continue with cefepime - will continue to trend wbc - will continue to monitor on tele - waiting for vital signs to normalize 2. Nausea and vomiting 3. Diabetes mellitus Plan - will continue to monitor patient on sliding scale - will continue with clear liquids for the time being
[2016-10-05] MEDS ORDERED: LISINOPRIL20 MG PO (16:12)
[2016-10-05] MEDS ORDERED: ATIVAN1 MG PO (16:12)
[2016-10-05 18:24] VITALS: BP 110/70
--- NOTE | 2016-10-05 19:33 | Progress Note ---
Late Entry Date/Time Late Entry Date and Time Terrence was doing well throughout the day and making significant improvements. Given patients improvement in her overall state the patients pain medications were adjusted. Patient had not been asking for pain medication all day, primarily because she was asleep. Patient upon waking up and undergoing pain assessment claimed her pain was well controlled despite this the patient asked for pain medications. Patient was told that the frequency changed and she was not due for quite some time. Patient became very tearful and anxious, and demanded that she speak to a physician. Patient was told by myself that the pain medication would not consist of frequent opiates and that we would provide around the clock acetaminophen and toradol if desired. Patient claims that the medicaiton provided before was ineffective and became increasingly agitated. When I told her the dangers of heavy opiate use the patient replied that she did not care, and began becoming verbally abusive. At this point when I said that i would not be budging on this issue the patient decided to leave against medical advise.
--- NOTE | 2016-10-10 09:22 | ED MAR SUMMARY ---
..... Medication Administration Record [facility] [address] [place] [address] Patient: BELLA AVERY Visit ID: [id number] 31y, F Weight: 83.9 kg Height/Length: 61 in BMI: 35 ALLERGIES: Codeine, Darvocet, Pyridium, Sulfa Antibiotics Start 23:07 10/03/2016 Jose L Jose R.N., Stop 01:00 10/04/2016 Jose L Jose R.N. Medication Administered: IV NS (SALINE), Dose: IV Fluids over 1 hour(s), Rate: 1000 mL/hr, Dispensed: 1000 mL bag, Site: #1 left upper arm. Medication Ordered: IV NS : initial bolus 1000 mL (1000 mL/hr), then none - for X1 (NOW). Given 23:08 10/03/2016 Jose L Jose R.N. Medication Administered: MORPHINE [IVP], Dose: 4 mg IVP over 2 minute(s), Site: #1 left upper arm. Medication Ordered: Morphine IV 4 mg (HIGH ALERT MEDICATION, NOW). Given 23:08 10/03/2016 Jose L Jose R.N. Medication Administered: ZOFRAN [IVP] (ONDANSETRON HCL), Dose: 4 mg IVP over 2 minute(s), Site: #1 left upper arm. Medication Ordered: Zofran IV 4 mg (NOW). Given 23:32 10/03/2016 Jose L Jose R.N. Medication Administered: MORPHINE [IVP], Dose: 4 mg IVP over 2 minute(s), Site: #1 left upper arm. Medication Ordered: Morphine IV 8 mg (HIGH ALERT MEDICATION, NOW). Given 23:32 10/03/2016 Jose L Jose R.N. Medication Administered: PHENERGAN [IVP] (PROMETHAZINE HCL), Dose: 25 mg IVP over 2 minute(s), Site: #1 left upper arm. Medication Ordered: Phenergan IV 25 mg (HIGH ALERT MEDICATION, NOW). Start 23:51 10/03/2016 Jose L Jose R.N., Stop 00:10 10/04/2016 Jose L Jose R.N. Medication Administered: CEFTRIAXONE [IVPB], Dose: 1 gm IVPB over 20 minute(s), Rate: 100 mL/hr, Dispensed: 50 mL bag, Site: #1 left upper arm. Medication Ordered: Ceftriaxone IV 1 gm/50mL (NOW). Given 00:49 10/04/2016 Jose L Jose R.N. Medication Administered: TORADOL [IVP], Dose: 30 mg IVP over 2 minute(s), Site: #1 left upper arm. Medication Ordered: Toradol IV 30 mg (NOW). Given 01:26 10/04/2016 Jose L Jose R.N. Medication Administered: BENADRYL [IVP] (DIPHENHYDRAMINE HCL), Dose: 50 mg IVP over 2 minute(s), Site: #1 left upper arm. Medication Ordered: Benadryl IV 50 mg (NOW). Start 02:07 10/04/2016 Jose L Jose R.N., Continued Upon Admission 03:55 10/04/2016 Jose L Jose R.N. Medication Administered: IV NS (SALINE), Dose: IV Fluids over 1 hour(s), Rate: 1500 mL/hr, Dispensed: 1500 mL bag, Site: #1 left upper arm. Medication Ordered: IV NS : initial bolus 1.5L, then none - for X1 (NOW). Given 02:08 10/04/2016 Jose L Jose R.N. Medication Administered: PHENERGAN [IVP] (PROMETHAZINE HCL), Dose: 25 mg IVP over 2 minute(s), Site: #1 left upper arm. Medication Ordered: Phenergan IV 25 mg (HIGH ALERT MEDICATION, NOW). Start 03:49 10/04/2016 Jose L Jose R.N., Continued Upon Admission 03:56 10/04/2016 Jose L Jose R.N. Medication Administered: CEFTRIAXONE [IVPB], Dose: 1 gm IVPB over 30 minute(s), Rate: 100 mL/hr, Dispensed: 50 mL bag, Site: #2 right AC. Medication Ordered: Ceftriaxone IV 1 gm/50mL (NOW). Given 03:55 10/04/2016 Jose L Jose R.N. Medication Administered: ATIVAN [IVP] (LORAZEPAM), Dose: 1 mg IVP over 2 minute(s), Site: #2 right AC. Medication Ordered: Ativan IV 1 mg (HIGH ALERT MEDICATION, NOW).
--- NOTE | 2016-10-10 09:22 | ED MED RECONCILIATION SUMMARY ---
Patient: BELLA AVERY Medication Reconciliation Report [facility] VisitID: [id number] [address] [place] [address] 31y, F Registration Date/Time: 10/03/2016 Weight: 83.9 kg Height/Length: 61 in. BMI: 35.0 ALLERGIES: Codeine, Darvocet, Pyridium, Sulfa Antibiotics The patient's Home Medications are listed below: THE FOLLOWING MEDICATIONS NEED TO BE RECONCILED: DayQuil Sore Throat and Cough Lisinopril Oral 20 mg, daily MetFORMIN HCl Oral 500 mg, daily Seritriptoline 50mg 3 tabs for sleeping SEROquel Oral 100 mg, 2x a day The source(s) of the original Home Medication information: Not obtained. The following Medications were given to the patient in the Emergency Department: IV NS IV Fluids bolus 0, then 1000 mL/hr, administered: 10/03/2016 11:07:00 PM Morphine [IVP] IVP 4 mg, administered: 10/03/2016 11:08:00 PM Zofran [IVP] IVP 4 mg, administered: 10/03/2016 11:08:00 PM Morphine [IVP] IVP 4 mg, administered: 10/03/2016 11:32:00 PM PHENERGAN [IVP] IVP 25 mg, administered: 10/03/2016 11:32:00 PM Ceftriaxone [IVPB] IVPB bolus 0, then 1 gm 100 mL/hr, administered: 10/03/2016 11:51:00 PM Toradol [IVP] IVP 30 mg, administered: 10/04/2016 12:49:00 AM Benadryl [IVP] IVP 50 mg, administered: 10/04/2016 1:26:00 AM IV NS IV Fluids bolus 0, then 1500 mL/hr, administered: 10/04/2016 2:07:00 AM PHENERGAN [IVP] IVP 25 mg, administered: 10/04/2016 2:08:00 AM Ceftriaxone [IVPB] IVPB bolus 0, then 1 gm 100 mL/hr, administered: 10/04/2016 3:49:00 AM Ativan [IVP] IVP 1 mg, administered: 10/04/2016 3:55:00 AM The following Medications were prescribed to the patient: Cephalexin 500 mg: take 1 capsule orally every 8 hours for 10 days. No refill.(disp 30 caps) -- Aries [address] Percocet 5 mg/325 mg: take 1 tablet orally every 6 hours as needed for pain. Dispense twelve (12). No refill. Substitution is permissible. -- Aries [address] Dr. Phenergan Tablets 25 mg: take 1 tablet orally every 6 hours as needed for nausea and vomiting. Dispense fifteen (15). No refill. Substitution is permissible -- Aries [address]e Dr.
--- NOTE | 2016-10-10 09:22 | ED MED RECONCILIATION SUMMARY ---
Patient: BELLA AVERY Medication Reconciliation Report [facility] VisitID: [id number] [address] [place] [address] 31y, F Registration Date/Time: 10/03/2016 Weight: 83.9 kg Height/Length: 61 in. BMI: 35.0 ALLERGIES: Codeine, Darvocet, Pyridium, Sulfa Antibiotics The patient's Home Medications are listed below: THE FOLLOWING MEDICATIONS NEED TO BE RECONCILED: DayQuil Sore Throat and Cough Lisinopril Oral 20 mg, daily MetFORMIN HCl Oral 500 mg, daily Seritriptoline 50mg 3 tabs for sleeping SEROquel Oral 100 mg, 2x a day The source(s) of the original Home Medication information: Not obtained. The following Medications were given to the patient in the Emergency Department: IV NS IV Fluids bolus 0, then 1000 mL/hr, administered: 10/03/2016 11:07:00 PM Morphine [IVP] IVP 4 mg, administered: 10/03/2016 11:08:00 PM Zofran [IVP] IVP 4 mg, administered: 10/03/2016 11:08:00 PM Morphine [IVP] IVP 4 mg, administered: 10/03/2016 11:32:00 PM PHENERGAN [IVP] IVP 25 mg, administered: 10/03/2016 11:32:00 PM Ceftriaxone [IVPB] IVPB bolus 0, then 1 gm 100 mL/hr, administered: 10/03/2016 11:51:00 PM Toradol [IVP] IVP 30 mg, administered: 10/04/2016 12:49:00 AM Benadryl [IVP] IVP 50 mg, administered: 10/04/2016 1:26:00 AM IV NS IV Fluids bolus 0, then 1500 mL/hr, administered: 10/04/2016 2:07:00 AM PHENERGAN [IVP] IVP 25 mg, administered: 10/04/2016 2:08:00 AM Ceftriaxone [IVPB] IVPB bolus 0, then 1 gm 100 mL/hr, administered: 10/04/2016 3:49:00 AM Ativan [IVP] IVP 1 mg, administered: 10/04/2016 3:55:00 AM The following Medications were prescribed to the patient: Cephalexin 500 mg: take 1 capsule orally every 8 hours for 10 days. No refill.(disp 30 caps) -- Aries [address] Percocet 5 mg/325 mg: take 1 tablet orally every 6 hours as needed for pain. Dispense twelve (12). No refill. Substitution is permissible. -- Aries [address] Dr. Phenergan Tablets 25 mg: take 1 tablet orally every 6 hours as needed for nausea and vomiting. Dispense fifteen (15). No refill. Substitution is permissible -- Aries [address]e Dr.
--- NOTE | 2016-10-10 09:22 | ED MAR SUMMARY ---
..... Medication Administration Record [facility] [address] [place] [address] Patient: BELLA AVERY Visit ID: [id number] 31y, F Weight: 83.9 kg Height/Length: 61 in BMI: 35 ALLERGIES: Codeine, Darvocet, Pyridium, Sulfa Antibiotics Start 23:07 10/03/2016 Jose L Jose R.N., Stop 01:00 10/04/2016 Jose L Jose R.N. Medication Administered: IV NS (SALINE), Dose: IV Fluids over 1 hour(s), Rate: 1000 mL/hr, Dispensed: 1000 mL bag, Site: #1 left upper arm. Medication Ordered: IV NS : initial bolus 1000 mL (1000 mL/hr), then none - for X1 (NOW). Given 23:08 10/03/2016 Jose L Jose R.N. Medication Administered: MORPHINE [IVP], Dose: 4 mg IVP over 2 minute(s), Site: #1 left upper arm. Medication Ordered: Morphine IV 4 mg (HIGH ALERT MEDICATION, NOW). Given 23:08 10/03/2016 Jose L Jose R.N. Medication Administered: ZOFRAN [IVP] (ONDANSETRON HCL), Dose: 4 mg IVP over 2 minute(s), Site: #1 left upper arm. Medication Ordered: Zofran IV 4 mg (NOW). Given 23:32 10/03/2016 Jose L Jose R.N. Medication Administered: MORPHINE [IVP], Dose: 4 mg IVP over 2 minute(s), Site: #1 left upper arm. Medication Ordered: Morphine IV 8 mg (HIGH ALERT MEDICATION, NOW). Given 23:32 10/03/2016 Jose L Jose R.N. Medication Administered: PHENERGAN [IVP] (PROMETHAZINE HCL), Dose: 25 mg IVP over 2 minute(s), Site: #1 left upper arm. Medication Ordered: Phenergan IV 25 mg (HIGH ALERT MEDICATION, NOW). Start 23:51 10/03/2016 Jose L Jose R.N., Stop 00:10 10/04/2016 Jose L Jose R.N. Medication Administered: CEFTRIAXONE [IVPB], Dose: 1 gm IVPB over 20 minute(s), Rate: 100 mL/hr, Dispensed: 50 mL bag, Site: #1 left upper arm. Medication Ordered: Ceftriaxone IV 1 gm/50mL (NOW). Given 00:49 10/04/2016 Jose L Jose R.N. Medication Administered: TORADOL [IVP], Dose: 30 mg IVP over 2 minute(s), Site: #1 left upper arm. Medication Ordered: Toradol IV 30 mg (NOW). Given 01:26 10/04/2016 Jose L Jose R.N. Medication Administered: BENADRYL [IVP] (DIPHENHYDRAMINE HCL), Dose: 50 mg IVP over 2 minute(s), Site: #1 left upper arm. Medication Ordered: Benadryl IV 50 mg (NOW). Start 02:07 10/04/2016 Jose L Jose R.N., Continued Upon Admission 03:55 10/04/2016 Jose L Jose R.N. Medication Administered: IV NS (SALINE), Dose: IV Fluids over 1 hour(s), Rate: 1500 mL/hr, Dispensed: 1500 mL bag, Site: #1 left upper arm. Medication Ordered: IV NS : initial bolus 1.5L, then none - for X1 (NOW). Given 02:08 10/04/2016 Jose L Jose R.N. Medication Administered: PHENERGAN [IVP] (PROMETHAZINE HCL), Dose: 25 mg IVP over 2 minute(s), Site: #1 left upper arm. Medication Ordered: Phenergan IV 25 mg (HIGH ALERT MEDICATION, NOW). Start 03:49 10/04/2016 Jose L Jose R.N., Continued Upon Admission 03:56 10/04/2016 Jose L Jose R.N. Medication Administered: CEFTRIAXONE [IVPB], Dose: 1 gm IVPB over 30 minute(s), Rate: 100 mL/hr, Dispensed: 50 mL bag, Site: #2 right AC. Medication Ordered: Ceftriaxone IV 1 gm/50mL (NOW). Given 03:55 10/04/2016 Jose L Jose R.N. Medication Administered: ATIVAN [IVP] (LORAZEPAM), Dose: 1 mg IVP over 2 minute(s), Site: #2 right AC. Medication Ordered: Ativan IV 1 mg (HIGH ALERT MEDICATION, NOW).
--- NOTE | 2016-10-10 09:22 | ED DISCHARGE INSTRUCTIONS ---
Patient: BELLA AVERY General Instructions [facility] VisitID: [id number] [place] [address] 31y, F Registration Date/Time: 10/03/2016 Vomiting with nausea. 10/04/2016 01:30 BP: 159/96. HR: 115. RR: 18. O2 saturation: 96%. Hypertensive. Oxygen saturation normal. Acute pyelonephritis (left). Moderate dehydration (acute). Essential hypertension. (acute hyperkalemia). sepsis acute pyelonephritis acute left sided lactic acidosis, resolved. INSTRUCTIONS Warnings: GENERAL WARNINGS: Return or contact your physician immediately if your condition worsens or changes unexpectedly, if not improving as expected, or if other problems arise. SPECIFICALLY, return if you develop pain, fever, vomiting, the inability to keep fluids down, blood in vomitus, blood in diarrhea, fainting or lightheadedness. Prescription Medications: Cephalexin 500 mg: take 1 capsule orally every 8 hours for 10 days. No refill. (disp 30 caps) Percocet 5 mg/325 mg: take 1 tablet orally every 6 hours as needed for pain. Dispense twelve (12). No refill. Substitution is permissible. Phenergan Tablets 25 mg: take 1 tablet orally every 6 hours as needed for nausea and vomiting. Dispense fifteen (15). No refill. Substitution is permissible Follow-up: Return to the emergency department as needed. Follow up with your doctor in two days. Reason for referral: recheck today's concerns. Summary of care provided to patient via paper. Screening today revealed the patient's blood pressure to be in the normal range. The patient should follow up with a primary care provider for blood pressure management. Understanding of the discharge instructions verbalized by patient. ADDITIONAL INFORMATION Vomiting [6Yr-Adult] Vomiting is a common symptom that may be due to different causes. These include gastroenteritis ("stomach flu"), food poisoning and gastritis. There are other more serious causes of vomiting which may be hard to diagnose early in the illness. Therefore, it is important to watch for the warning signs listed below. The main danger from repeated vomiting is dehydration. This is due to excess loss of water and minerals from the body. When this occurs, body fluids must be replaced. Home Care: If symptoms are severe, rest at home for the next 24 hours. You may use acetaminophen (Tylenol) or ibuprofen (Motrin, Advil) to control fever, unless another medicine was prescribed. [NOTE : If you have chronic liver or kidney disease or ever had a stomach ulcer or GI bleeding, talk with your doctor before using these medicines.] (Aspirin should never be used in anyone under 18 years of age who is ill with a fever. It may cause severe liver damage.) Avoid tobacco and alcohol use, which may worsen your symptoms. If medicines for vomiting were prescribed, take as directed. Once vomiting stops, then follow these guidelines: During The First 12-24 Hours follow the diet below: FRUIT JUICES: Apple, grape juice, clear fruit drinks, and electrolyte replacement drinks. BEVERAGES: Soft drinks without caffeine; mineral water (plain or flavored), decaffeinated tea and coffee. SOUPS: Clear broth, consomm and bouillon DESSERTS: Plain gelatin, popsicles and fruit juice bars. As you feel better, you may add 6-8 ounces of yogurt per day. During The Next 24 Hours you may add the following to the above: Hot cereal, plain toast, bread, rolls, crackers Plain noodles, rice, mashed potatoes, chicken noodle or rice soup Unsweetened canned fruit (avoid pineapple), bananas Limit caffeine and chocolate. No spices or seasonings except salt. During The Next 24 Hours Gradually resume a normal diet, as you feel better and your symptoms lessen. Follow Up with your doctor as advised if you are not improving over the next 2-3 days. Get Prompt Medical Attention if any of the following occur: Constant right-sided lower abdominal pain or increasing general abdominal pain Continued vomiting (unable to keep liquids down) for 24 hours Frequent diarrhea (more than 5 times a day); blood (red or black color) or mucus in diarrhea Reduced urine output or extreme thirst Weakness, dizziness or fainting Unusually drowsy or confused Fever of 100.4F (38C) oral or higher, not better with fever medication Yellow color of the eyes or skin Kidney Infection [Adult, Female] An infection of the kidney is also called "pyelonephritis". It usually starts as a bladder infection ("cystitis") which spreads to the kidneys. Pyelonephritis is more serious than a bladder infection. It can cause severe illness if not treated properly. The usual symptoms include an aching pain in the back, side or lower abdomen. Other symptoms may include fever, chills, nausea, vomiting, an urge to urinate and a burning sensation when passing urine. Home Care: Stay home from work or school. Rest in bed until your fever breaks and you are feeling better. Drink lots of fluid (at least 6-8 glasses a day, unless you must restrict fluids for other medical reasons). This will force the medicine into your urinary system and flush the bacteria out of your body. Avoid sexual intercourse until you have finished all of your medicine and your symptoms have gone away. Avoid caffeine, alcohol and spicy foods which may irritate the kidney and bladder. You may use acetaminophen (Tylenol) or ibuprofen (Motrin, Advil) to control pain, unless another pain medicine was prescribed. [NOTE: If you have chronic liver or kidney disease or ever had a stomach ulcer or GI bleeding, talk with your doctor before using these medicines.] Follow Up with your doctor or as advised by our staff for a repeat urine test in 10 days. This will ensure that your infection is fully cleared. [NOTE: If you had an X-ray or CT scan, it will be reviewed by a specialist. You will be notified of any new findings that may affect your care.] Get Prompt Medical Attention if any of the following occur: Fever over 100.4F (38.0C) after 48 hours of treatment No improvement by the third day of treatment Increasing back or abdominal pain Repeated vomiting or inability to take oral medicine Weakness, dizziness or fainting High Blood Pressure -- To Be Confirmed [No Tx] Your blood pressure was higher today than normal. Sometimes anxiety or pain can cause a temporary rise in blood pressure that later returns to normal. If your blood pressure is high on one measurement, this does not mean that you have hypertension (a chronic illness). However, you must have your blood pressure measured again within the next few days to find out if its still high. A normal blood pressure is 120/80 or less. The first (top) number is the "systolic" pressure. The second (bottom) number is the "diastolic" pressure. Hypertension exists when either the top number is 140 or higher, OR the bottom number is 90 or higher on repeated measurements. Blood pressure in the range of 120-140 (systolic) or 80-89 (diastolic) is considered "pre-hypertension". This means your are at risk for getting hypertension. You should have regular blood pressure checks to be sure your blood pressure is not rising. Home Care: Measure your blood pressure on 3 different days and write down the results. This can be done at your doctor's office or this facility. Some pharmacies and grocery stores offer automated blood pressure machines for your use. Follow Up: If your blood pressure is "high" (over 120/80) on 2 out of 3 days, you will need to follow up with your doctor for further evaluation and treatment. DO NOT PUT THIS OFF! Untreated high blood pressure increases the risk for heart attack, also known as acute myocardial infarction, or AMI, and stroke. It is a treatable condition. Get Prompt Medical Attention if any of the following occur: Chest pain or shortness of breath Severe headache Throbbing or rushing sound in the ears Nosebleed Sudden severe abdominal pain Extreme drowsiness, confusion or fainting Dizziness or vertigo (dizziness with spinning sensation) Weakness of an arm or leg or one side of the face Difficulty with speech or vision Dehydration (Adult) Dehydration occurs when your body loses too much fluid. This may be the result of vomiting a lot or from diarrhea,sweating a lot, or a high fever. It may also happen if you dont drink enough fluid when youre sick. Misuse of diuretics (water pills) can also be a cause. Symptoms include thirst and feeling dizzy, weak, fatigued, or very drowsy. The diet described below is usually enough to treat most cases. Sometimes you may needmedicine. Home Care Follow these guidelines for home care: Drink at least 12 8-ounce glasses of fluid every day to overcome the dehydration. Fluid may include water; orange juice; lemonade; apple, grape, and cranberry juice; clear fruit drinks; electrolyte replacement and sports drinks; and teas and coffee without caffeine. If you have been diagnosed with a kidney disease, ask your doctor how much and what types of fluids you should drink to prevent dehydration. If you have kidney disease, drinking too much fluid can cause it build up in the your body and be dangerous to your health. If you have fever, muscle aching, or headache from a viral syndrome, you may useacetaminophen or ibuprofen, unless another medicine was prescribed for this.If you have chronic liver or kidney disease or ever had a stomach ulcer or GI bleeding, talk with your doctor before using these medicines. Don't take aspirin if you are younger than 18 and are ill with a fever.Aspirin raises the chance forsevere liver injury. Follow-up care Follow up with your health care provider if you don't get better in the next 24 to 48 hours. When to seek medical care Get prompt medical attention if any of theseoccur: Continued vomiting (cant keep liquids down) Frequent diarrhea (more than 5 times a day); blood (red or black color) or mucus in diarrhea Blood in vomit or stool Swollen abdomen or increasing abdominal pain Weakness, dizziness, or fainting Unusually drowsy or confused Reduced urine output or extreme thirst Fever of 100.4 F (38 C) oral or higher that does not get better with fever medication Cephalexin Monohydrate Oral tablet What is this medicine? CEPHALEXIN (sef a LAYTON in) is a cephalosporin antibiotic. It is used to treat certain kinds of bacterial infections It will not work for colds, flu, or other viral infections. How should I use this medicine? Take this medicine by mouth with a full glass of water. Follow the directions on the prescription label. This medicine can be taken with or without food. Take your medicine at regular intervals. Do not take your medicine more often than directed. Take all of your medicine as directed even if you think you are better. Do not skip doses or stop your medicine early. Talk to your hub cutter regarding the use of this medicine in children. While this drug may be prescribed for selected conditions, precautions do apply. What side effects may I notice from receiving this medicine? Side effects that you should report to your doctor or health clinical manager home care as soon as possible: allergic reactions like skin rash, itching or hives, swelling of the face, lips, or tongue breathing problems pain or trouble passing urine redness, blistering, peeling or loosening of the skin, including inside the mouth severe or watery diarrhea unusually weak or tired yellowing of the eyes, skin Side effects that usually do not require medical attention (report to your doctor or health clinical manager home care if they continue or are bothersome): gas or heartburn genital or anal irritation headache joint or muscle pain nausea, vomiting What may interact with this medicine? probenecid some other antibiotics What if I miss a dose? If you miss a dose, take it as soon as you can. If it is almost time for your next dose, take only that dose. Do not take double or extra doses. There should be at least 4 to 6 hours between doses. Where should I keep my medicine? Keep out of the reach of children. Store at room temperature between 59 and 86 degrees F (15 and 30 degrees C). Throw away any unused medicine after the expiration date. What should I tell my health care provider before I take this medicine? They need to know if you have any of these conditions: kidney disease stomach or intestine problems, especially colitis an unusual or allergic reaction to cephalexin, other cephalosporins, penicillins, other antibiotics, medicines, foods, dyes or preservatives or trying to get breast-feeding What should I watch for while using this medicine? Tell your doctor or health clinical manager home care if your symptoms do not begin to improve in a few days. Do not treat diarrhea with over the counter products. Contact your doctor if you have diarrhea that lasts more than 2 days or if it is severe and watery. If you have diabetes, you may get a false-positive result for sugar in your urine. Check with your doctor or health clinical manager home care. Oxycodone Hydrochloride, Acetaminophen Oral tablet What is this medicine? ACETAMINOPHEN; OXYCODONE (a set a ROGELIO laya fen; ox i KOE done) is a pain reliever. It is used to treat mild to moderate pain. How should I use this medicine? Take this medicine by mouth with a full glass of water. Follow the directions on the prescription label. Take your medicine at regular intervals. Do not take your medicine more often than directed. Talk to your hub cutter regarding the use of this medicine in children. Special care may be needed. Patients over 65 years old may have a stronger reaction and need a smaller dose. What side effects may I notice from receiving this medicine? Side effects that you should report to your doctor or health clinical manager home care as soon as possible: allergic reactions like skin rash, itching or hives, swelling of the face, lips, or tongue breathing difficulties, wheezing confusion light headedness or fainting spells severe stomach pain yellowing of the skin or the whites of the eyes Side effects that usually do not require medical attention (report to your doctor or health clinical manager home care if they continue or are bothersome): dizziness drowsiness nausea vomiting What may interact with this medicine? alcohol antihistamines barbiturates like amobarbital, butalbital, butabarbital, methohexital, pentobarbital, phenobarbital, thiopental, and secobarbital benztropine drugs for bladder problems like solifenacin, trospium, oxybutynin, tolterodine, hyoscyamine, and methscopolamine drugs for breathing problems like ipratropium and tiotropium drugs for certain stomach or intestine problems like propantheline, homatropine methylbromide, glycopyrrolate, atropine, belladonna, and dicyclomine general anesthetics like etomidate, ketamine, nitrous oxide, propofol, desflurane, enflurane, halothane, isoflurane, and sevoflurane medicines for depression, anxiety, or psychotic disturbances medicines for sleep muscle relaxants naltrexone narcotic medicines (opiates) for pain phenothiazines like perphenazine, thioridazine, chlorpromazine, mesoridazine, fluphenazine, prochlorperazine, promazine, and trifluoperazine scopolamine tramadol trihexyphenidyl What if I miss a dose? If you miss a dose, take it as soon as you can. If it is almost time for your next dose, take only that dose. Do not take double or extra doses. Where should I keep my medicine? Keep out of the reach of children. This medicine can be abused. Keep your medicine in a safe place to protect it from theft. Do not share this medicine with anyone. Selling or giving away this medicine is dangerous and against the law. Store at room temperature between 20 and 25 degrees C (68 and 77 degrees F). Keep container tightly closed. Protect from light. This medicine may cause accidental overdose and if it is taken by other adults, children, or pets. Flush any unused medicine down the toilet to reduce the chance of harm. Do not use the medicine after the expiration date. What should I tell my health care provider before I take this medicine? They need to know if you have any of these conditions: brain tumor Crohn's disease, inflammatory bowel disease, or ulcerative colitis drink more than 3 alcohol containing drinks per day drug abuse or addiction head injury heart or circulation problems kidney disease or problems going to the bathroom liver disease lung disease, asthma, or breathing problems an unusual or allergic reaction to acetaminophen, oxycodone, other opioid analgesics, other medicines, foods, dyes, or preservatives or trying to get breast-feeding What should I watch for while using this medicine? Tell your doctor or health clinical manager home care if your pain does not go away, if it gets worse, or if you have new or a different type of pain. You may develop tolerance to the medicine. Tolerance means that you will need a higher dose of the medication for pain relief. Tolerance is normal and is expected if you take this medicine for a long time. Do not suddenly stop taking your medicine because you may develop a severe reaction. Your body becomes used to the medicine. This does NOT mean you are addicted. Addiction is a behavior related to getting and using a drug for a non-medical reason. If you have pain, you have a medical reason to take pain medicine. Your doctor will tell you how much medicine to take. If your doctor wants you to stop the medicine, the dose will be slowly lowered over time to avoid any side effects. You may get drowsy or dizzy. Do not drive, use machinery, or do anything that needs mental alertness until you know how this medicine affects you. Do not stand or sit up quickly, especially if you are an older patient. This reduces the risk of dizzy or fainting spells. Alcohol may interfere with the effect of this medicine. Avoid alcoholic drinks. There are different types of narcotic medicines (opiates) for pain. If you take more than one type at the same time, you may have more side effects. Give your health care provider a list of all medicines you use. Your doctor will tell you how much medicine to take. Do not take more medicine than directed. Call emergency for help if you have problems breathing. The medicine will cause constipation. Try to have a bowel movement at least every 2 to 3 days. If you do not have a bowel movement for 3 days, call your doctor or health clinical manager home care. Do not take Tylenol (acetaminophen) or medicines that have acetaminophen with this medicine. Too much acetaminophen can be very dangerous. Many nonprescription medicines contain acetaminophen. Always read the labels carefully to avoid taking more acetaminophen. Promethazine Hydrochloride Oral tablet What is this medicine? PROMETHAZINE (proe METH a zeen) is an antihistamine. It is used to treat allergic reactions and to treat or prevent nausea and vomiting from illness or motion sickness. It is also used to make you sleep before surgery, and to help treat pain or nausea after surgery. How should I use this medicine? Take this medicine by mouth with a glass of water. Follow the directions on the prescription label. Take your doses at regular intervals. Do not take your medicine more often than directed. Talk to your hub cutter regarding the use of this medicine in children. Special care may be needed. This medicine should not be given to infants and children younger than 2 years old. What side effects may I notice from receiving this medicine? Side effects that you should report to your doctor or health clinical manager home care as soon as possible: blurred vision irregular heartbeat, palpitations or chest pain muscle or facial twitches pain or difficulty passing urine seizures skin rash slowed or shallow breathing unusual bleeding or bruising yellowing of the eyes or skin Side effects that usually do not require medical attention (report to your doctor or health clinical manager home care if they continue or are bothersome): headache nightmares, agitation, nervousness, excitability, not able to sleep (these are more likely in children) stuffy nose What may interact with this medicine? Do not take this medicine with any of the following medications: medicines called MAO Inhibitors like Nardil, Parnate, Marplan, Eldepryl other phenothiazines like trimethobenzamide This medicine may also interact with the following medications: barbiturates like phenobarbital bromocriptine certain antidepressants certain antihistamines used in allergy or cold medicines epinephrine levodopa medicines for sleep medicines for mental problems and psychotic disturbances medicines for movement abnormalities as in Parkinson's disease, or for gastrointestinal problems muscle relaxants prescription pain medicines What if I miss a dose? If you miss a dose, take it as soon as you can. If it is almost time for your next dose, take only that dose. Do not take double or extra doses. Where should I keep my medicine? Keep out of the reach of children. Store at room temperature, between 20 and 25 degrees C (68 and 77 degrees F). Protect from light. Throw away any unused medicine after the expiration date. What should I tell my health care provider before I take this medicine? They need to know if you have any of these conditions: glaucoma high blood pressure or heart disease kidney disease liver disease lung or breathing disease, like asthma prostate trouble pain or difficulty passing urine seizures an unusual or allergic reaction to promethazine or phenothiazines, other medicines, foods, dyes, or preservatives or trying to get breast-feeding What should I watch for while using this medicine? Tell your doctor or health clinical manager home care if your symptoms do not start to get better in 1 to 2 days. You may get drowsy or dizzy. Do not drive, use machinery, or do anything that needs mental alertness until you know how this medicine affects you. To reduce the risk of dizzy or fainting spells, do not stand or sit up quickly, especially if you are an older patient. Alcohol may increase dizziness and drowsiness. Avoid alcoholic drinks. Your mouth may get dry. Chewing sugarless gum or sucking hard candy, and drinking plenty of water may help. Contact your doctor if the problem does not go away or is severe. This medicine may cause dry eyes and blurred vision. If you wear contact lenses you may feel some discomfort. Lubricating drops may help. See your eye doctor if the problem does not go away or is severe. This medicine can make you more sensitive to the sun. Keep out of the sun. If you cannot avoid being in the sun, wear protective clothing and use sunscreen. Do not use sun lamps or tanning beds/booths. If you are diabetic, check your blood-sugar levels regularly. You have been given the following additional information: Vomiting (6Y-Adult) Pyelonephritis, Female (Adult) Hypertension, To Be Confirmed Dehydration (Adult) Cephalexin Monohydrate Oral tablet Oxycodone Hydrochloride, Acetaminophen Oral tablet Promethazine Hydrochloride Oral tablet (Electronically signed by Aries Clemente Dr. 10/10/2016 9:22)
== END 2016-10-05 17:25 | disposition left against medical advice (07) | DRG 872 ==
LOC: ED SRH 22:33 → CC SRH 10-04 03:10 → TRANS SRH 10-04 03:10 → CC SRH 10-04 04:34
PROVIDERS: ADMIT Family Medicine
DX: A41.9 Sepsis, unspecified organism (principal); N10 Acute pyelonephritis; R11.2 Nausea with vomiting, unspecified; E86.0 Dehydration; E87.5 Hyperkalemia; E11.9 Type 2 diabetes mellitus without complications; I10 Essential (primary) hypertension; Z79.84 Long term (current) use of oral hypoglycemic drugs; Z87.442 Personal history of urinary calculi
CPT/HCPCS: 84351; 90004; 90065; 90074; 90098; 90100; 90148; 90197; 90469; 91585; 91672; 92031; 92132; 92235; 92750; 92760; 92761; 92762; 92763; 92764; 92765; 92766; 92767; 93004; 95059

== ENCOUNTER 2016-11-08 19:19 | Emergency (ER) | payer MEDICARE, OTHER ==
[~2016-11-08 19:19] MED LIST: ATIVAN1 MG PO; LISINOPRIL20 MG PO; METFORMIN HCL500 MG PO; SEROQUEL100 MG PO; ZOLOFT50 MG PO
--- NOTE | 2016-11-08 20:41 | ED ORDER SUMMARY ---
..... Patient: BELLA AVERY OrderSheet [facility] VisitID: [id number] [place] [address] 31y, F Registration Date/Time: 11/08/2016 ORDER SHEET Weight: 81.6 kg (stated) Allergies: Codeine, Darvocet, Pyridium, Sulfa Antibiotics GENERAL ORDERS: CBC w Diff Urgent (19:38 11/08/2016 HBivens A.R.N.P.) (19:47 JSanders R.N.) CMP Urgent (19:38 11/08/2016 HBivens A.R.N.P.) (19:47 JSanders R.N.) UA-Culture if indicated Urgent (19:38 11/08/2016 HBivens A.R.N.P.) (19:47 JSanders R.N.) Amylase Urgent (19:38 11/08/2016 HBivens A.R.N.P.) (19:47 JSanders R.N.) Lipase Urgent (19:38 11/08/2016 HBivens A.R.N.P.) (19:47 JSanders R.N.) Urine Urgent (19:38 11/08/2016 HBivens A.R.N.P.) (19:43 JSanders R.N.) MEDICATION ORDERS: Ibuprofen PO 800 mg (NOW) (20:41 11/08/2016 HBivens A.R.N.P.) (20:44 JSanders R.N.) IV FLUIDS: IV Saline Lock (19:38 11/08/2016 HBivens A.R.N.P.) (Ack 19:43 JSanders R.N.) (20:00 JSanders R.N.) ORDER SHEET NOTES: [Electronically signed by Melyssa Chavira R.N. (20:51 11/08/2016)] [Electronically signed by Rosa CaseyR.N.P. (20:59 11/08/2016)] [Electronically locked/signed by Melyssa Chavira R.N. (20:51 11/08/2016)]
--- NOTE | 2016-11-08 20:41 | ED NURSING NOTES ---
Clinical Report - Nurses [facility] [place] [address] 11/08/2016 19:21 Patient: BELLA AVERY TRIAGE Triage time 19:Nov 08 2016. Acuity: LEVEL 3. Chief Complaint: PAINFUL URINATION, URGENCY and FREQUENCY. 19:33 11/08/16. --19:33 Melyssa Chavira R.N. 19:26 11/08/16. BP: 163/113 (regular adult cuff) taken on the left arm, while sitting. HR: 87. RR: 18. O2 saturation: 97% on room air. Temp: 98.6 F (oral). Pain level now: 11/17. --19:33 Melyssa Chavira R.N. Weight: 81.6 kg stated. Height/Length: 61 inches Per Patient. BMI: 34. --19:32 Melyssa Chavira R.N. Medications Lisinopril Oral 20 mg, daily. MetFORMIN HCl Oral 500 mg, daily. Seritriptoline 50mg 3 tabs for sleeping . --19:30 Melyssa Chavira R.N. Ibuprofen Oral (Tablet 600 mg) 1 tablet, 3x a day. --19:31 Melyssa Chavira R.N. Allergies Codeine. Darvocet. Pyridium. Sulfa Antibiotics. --19:31 Melyssa Chavira R.N. History Arrived by private vehicle. Historian: patient. Accompanied by family. Primary physician (ADAN CASTILLO). This started just prior to arrival. She has had mild, intermittent abdominal pain. The pain is described as located in the RUQ and LUQ. She has had mild, intermittent right-sided and left-sided flank pain. Last oral intake by patient was (2 hours ago). PAST MEDICAL HX: Diabetes mellitus. Hypertension. Endometriosis. Last normal menstrual period was 3 weeks ago. SOCIAL HX: Never smoker. History of heavy drug use: marijuana. Recently used drugs today. No alcohol use. No infectious disease exposure. ABUSE ASSESSMENT: No report of abuse. --19:33 Melyssa Chavira R.N. PROBLEMS: Vomiting. Pyelonephritis. Ureterolithiasis. Diabetes Mellitus. Pharyngitis. Bronchitis. Acute Otalgia. Headache. Hyperglycemia. Anemia. Abdominal Pain. Chronic Back Pain. Nephrolithiasis. Colitis. Endometriosis. STD - Sexually Transmitted Disease. Hypertension. --19:31 Melyssa Chavira R.N. ADDITIONAL SURGERIES: Cholecystectomy. Tubal Ligation. --19:31 Melyssa Chavira R.N. Interventions ID band on patient. To treatment room. --19:33 Melyssa Chavira R.N. PHYSICAL ASSESSMENT 19:34 11/08/16. Ambulatory to room. Patient gowned. ( Patient says she vomited yesterday and has been having diarrhea). GENERAL / NEURO / PSYCH: Alert. Oriented X 4. HEENT: Mucous membranes are pink. RESPIRATORY: Respirations not labored. Breath sounds within normal limits. CVS: Normal heart rate and rhythm. Capillary refill less than 2 seconds. GI / : Abdomen soft and nontender. Abdominal tenderness. Bowel sounds within normal limits. Pain with urination. SKIN: Skin is warm. --19:34 Melyssa Chavira R.N. NURSING PROGRESS NOTES 19:34 11/08/16. The plan of care for this patient has been created. Monitoring of patient in place. Patient gowned. Head of bed elevated. Reassurance given. Two patient identifiers checked. Call light placed in reach. Side rails up x 1. Bed placed in lowest position. Brakes of bed on. Patient ready for evaluation- chart flagged and ED physician notified. --19:34 Melyssa Chavira R.N. 19:47 11/08/2016 Site #1 started via IV in the right wrist with an 20g angiocath; one attempt. Blood drawn: rainbow set. Labeled in the presence of the patient and sent to the lab. Saline lock flushed with 10 mL saline. --19:47 Andrew Malone R.N. Blood samples drawn. --19:47 Andrew Malone R.N. 19:59 11/08/16. ( Patient says she is on BP meds but did not take any today because she wasn't feeling well). --19:59 Melyssa Chavira R.N. 19:59 11/08/16. BP: 152/100 (regular adult cuff) taken on the left arm, while sitting. HR: 84. RR: 18. O2 saturation: 100% on room air. Pain level now: 11/17. --20:00 Melyssa Chavira R.N. 20:00 11/08/16. --20:00 Melyssa Chavira R.N. 20:43 11/08/2016 Ibuprofen PO Tablets 800 mg given. Allergies verified and confirmed 5 rights. --20:43 Melyssa Chavira R.N. DISPOSITION / DISCHARGE 20:50 11/08/2016 Site #1 removed upon discharge. Bandaid applied. --20:50 Melyssa Chavira R.N. 20:50 11/08/16. Condition at departure: unchanged. No learning barriers present. Discharge instructions provided and reviewed with the patient. Reviewed medication(s) side effects, precautions, dosing and course information. Prescription(s) given to the patient. Patient verbalized understanding. Written instructions provided in Italian. The patient was discharged by the nurse practitioner. She was discharged home and accompanied by parent. She left the Emergency Department ambulatory and via private vehicle. Parent driving. --20:50 Melyssa Chavira R.N. 20:48 11/08/16. BP: 147/102 (regular adult cuff) taken on the left arm. HR: 77. RR: 16. O2 saturation: 94% on room air. Temp: 98.4 F (oral). Pain level now: 11/17. Additional comments: PA knows about HTN. --20:50 Melyssa Chavira R.N. 20:50 11/08/16. Departure time: 20:50 Nov 08 2016. --20:50 Melyssa Chavira R.N. Locked/Released at 11/08/2016 20:51 by Melyssa Chavira R.N.
--- NOTE | 2016-11-08 20:41 | ED ORDER SUMMARY ---
..... Patient: BELLA AVERY OrderSheet [facility] VisitID: [id number] [place] [address] 31y, F Registration Date/Time: 11/08/2016 ORDER SHEET Weight: 81.6 kg (stated) Allergies: Codeine, Darvocet, Pyridium, Sulfa Antibiotics GENERAL ORDERS: CBC w Diff Urgent (19:38 11/08/2016 HBivens A.R.N.P.) (19:47 JSanders R.N.) CMP Urgent (19:38 11/08/2016 HBivens A.R.N.P.) (19:47 JSanders R.N.) UA-Culture if indicated Urgent (19:38 11/08/2016 HBivens A.R.N.P.) (19:47 JSanders R.N.) Amylase Urgent (19:38 11/08/2016 HBivens A.R.N.P.) (19:47 JSanders R.N.) Lipase Urgent (19:38 11/08/2016 HBivens A.R.N.P.) (19:47 JSanders R.N.) Urine Urgent (19:38 11/08/2016 HBivens A.R.N.P.) (19:43 JSanders R.N.) MEDICATION ORDERS: Ibuprofen PO 800 mg (NOW) (20:41 11/08/2016 HBivens A.R.N.P.) (20:44 JSanders R.N.) IV FLUIDS: IV Saline Lock (19:38 11/08/2016 HBivens A.R.N.P.) (Ack 19:43 JSanders R.N.) (20:00 JSanders R.N.) ORDER SHEET NOTES: [Electronically signed by Melyssa Chavira R.N. (20:51 11/08/2016)] [Electronically signed by Rosa CaseyR.N.P. (20:59 11/08/2016)] [Electronically locked/signed by Melyssa Chavira R.N. (20:51 11/08/2016)]
--- NOTE | 2016-11-08 20:41 | ED CLINICAL REPORT ---
Clinical Report - Physicians/Mid Levels [facility] [address] [place] [address] 11/08/2016 19:21 Patient: BELLA AVERY Time Seen: 19:22; upon arrival, initial patient contact, initial documentation, patient care assumed. Arrived- By private vehicle. Historian- patient. HISTORY OF PRESENT ILLNESS Chief Complaint: DYSURIA. This started about 3 days ago and still present. The symptoms are described as moderate. The patient has had mild, intermittent abdominal pain. The pain is described as located in the right upper quadrant and left upper quadrant. No abnormal bleeding or vaginal discharge. The patient has had pain with urination and urgency of urination. The patient has had urinary frequency. Sexually active. (pain is in both upper sides of abd and radiates to middle back/flank area). Denies current . Similar symptoms previously: Frequently, as bad. ( feels same as past bladder infections). Recent medical care: Not recently seen/assessed. REVIEW OF SYSTEMS The patient has had vomiting (x3 yesterday, none today). She has had diarrhea (x3 today). No fever, difficulty breathing or chest pain. All systems otherwise negative, except as recorded above. PAST HISTORY See nurses notes. ( PROBLEMS: Vomiting. Pyelonephritis. Ureterolithiasis. Diabetes Mellitus. Pharyngitis. Bronchitis. Acute Otalgia. Headache. Hyperglycemia. Anemia. Abdominal Pain. Chronic Back Pain. Nephrolithiasis. Colitis. Endometriosis. STD - Sexually Transmitted Disease. Hypertension. --19:31 Melyssa Chavira, R.N. ADDITIONAL SURGERIES: Cholecystectomy. Tubal Ligation. --19:31 Melyssa Chavira, R.N.). SOCIAL HISTORY Never smoker. Occasional alcohol use. History of heavy drug use: marijuana. Recently used drugs today. No recent travel. Is a local resident. FAMILY HISTORY Negative. ADDITIONAL NOTES The nursing notes have been reviewed with agreement regarding the chief complaint, HPI, ROS, PMH and patient medications and allergies. PHYSICAL EXAM Vital Signs: 11/08/2016 19:26 BP: 163/113. HR: 87. RR: 18. O2 saturation: 97%. Temp: 98.6 F. Pain level now: 11/17. Have been reviewed as abnormal and appear to be correct. Hypertensive. Heart rate normal. Respiratory rate normal. Temperature normal. Oxygen saturation normal. Appearance: Alert. Oriented X3. No acute distress. HEENT: Normal external inspection. ENT: Pharynx normal. Neck: Neck supple. CVS: Heart sounds normal. Respiratory: No respiratory distress. Breath sounds normal. Chest nontender. Abdomen: Soft and nontender. Bowel sounds normal. No organomegaly. No mass. Back: Normal external inspection. Skin: Skin warm and dry. Normal skin color. No rash. Normal skin turgor. Extremities: Extremities nontender. No lower extremity edema. Neuro: Oriented X 3. Mood/affect normal. No motor deficit. No sensory deficit. LABS, X-RAYS, AND EKG Laboratory Tests: UA-Culture if indicated: (LORETO: 11/08/2016 19:35) ( [facility] 11/08/2016 19:55) Final results Test Result Flag Units (Reference) URINE COLOR YELLOW URINE APPEARANCE CLEAR URINE GLUCOSE NEGATIVE (NEGATIVE) URINE BILIRUBIN NEGATIVE (NEGATIVE) URINE KETONE NEGATIVE (NEGATIVE) URINE SPECIFIC GRAVITY 1.020 (1.010-1.030) URINE PH 6.5 (5.0-8.0) URINE PROTEIN NEGATIVE (NEGATIVE) URINE UROBILINOGEN 0.2 EU/dL (0.2-1.0) URINE NITRITE NEGATIVE (NEGATIVE) URINE BLOOD NEGATIVE (NEGATIVE) URINE LEUK ESTERASE NEGATIVE (NEGATIVE) URINE RBC RARE rbc/hpf (0-1) URINE WBC 0-1 wbc/hpf (0-1) URINE EPITHELIAL CELLS 1-3 EPI/hpf (0-5) URINE BACTERIA FEW (1+) (NONE SEEN) URINE COMMENT CULT NOT INDICATED 1+ AMORPHOUS URATES.URINE CULTURES ARE SET-UP BASED ON THE FOLLOWING CRITERIA:POSITIVE NITRITEPOSITIVE LEUKOCYTE ESTERASEGREATER THAN 10 WHITE BLOOD CELLSMODERATE (2+) OR GREATER BACTERIA Urine: (LORETO: 11/08/2016 19:35) ( [facility] 11/08/2016 19:46) Final results Test Result Flag Units (Reference) URINE NEGATIVE CBC w Diff: (LORETO: 11/08/2016 19:45) ( MsgRcvd 11/08/2016 19:55) Final results Test Result Flag Units (Reference) WHITE BLOOD COUNT 10.3 K/uL (4.5-11.5) RED BLOOD COUNT 5.27 H M/uL (4.00-5.20) HEMOGLOBIN 14.0 gm/dL (12.0-16.0) HEMATOCRIT 42.1 % (36.0-46.0) MEAN CELL VOLUME 80 fL (80-100) MEAN CORPUSCULAR HGB 27 pg (26-34) MEAN CORPUSCULAR HGB CONC 33 g/dL (31-37) RED CELL DISTRIBUTION WIDTH 15.8 H % (11.6-14.8) PLATELET COUNT 440 H K/uL (150-400) NEUTROPHIL % 62.8 % (50-75) LYMPH % 30.4 % (25-40) MONO % 4.5 % (3-14) EOSINOPHIL % 1.8 % (0-4) BASOPHIL % 0.5 % (0-2) CMP: (LORETO: 11/08/2016 19:45) ( MsgRcvd 11/08/2016 20:07) Final results Test Result Flag Units (Reference) GLUCOSE 203 H mg/dL (70-110) BUN 6 L mg/dL (7-18) CREATININE 0.7 mg/dL (0.6-1.3) Estimated GFR >60 mL/min Estimated GFR- >60 mL/min Note: Persistent reduction over 3 months in eGFR<60 mL/min/1.73 m2 defines CKD. Patients with eGFR values>=60 mL/min/1.73 m2 may also have CKD if evidence ofpersistent proteinuria. Additional information may be foundat www.kidney.org. SODIUM 140 mmol/L (136-145) POTASSIUM 4.1 mmol/L (3.5-5.1) CHLORIDE 101 mmol/L (98-107) CARBON DIOXIDE 27 mmol/L (21-32) CALCIUM 9.4 mg/dL (8.5-10.1) TOTAL PROTEIN 8.9 H g/dL (6.4-8.2) ALBUMIN 4.0 g/dL (3.3-5.0) BILIRUBIN, TOTAL 0.3 mg/dL (0.0-1.0) ALKALINE PHOSPHATASE 101 U/L (46-116) AST (SGOT) 13 L U/L (15-37) ALT (SGPT) 26 U/L (12-78) LIPASE 91 U/L (73-393) AMYLASE 23 L U/L (25-115) . PROGRESS AND PROCEDURES Patient counseled in person regarding the patient's stable condition, test results and diagnosis. 20:25. Differential Diagnosis: I considered gastritis, gastroenteritis, peptic ulcer disease, gastroesophageal reflux disease, colon cancer, Crohn's disease, biliary colic, cholecystitis, cholelithiasis, hepatitis, pancreatitis, common bile duct obstruction, cholangitis, urinary tract infection, ureterolithiasis, and viral syndrome as a possible cause of abdominal pain in this patient. This is a partial list of diagnoses considered. Above considerations are based on history, physical exam, reassessment and laboratory data. Differential diagnosis was discussed with patient. Disposition: Discharged home in good and improved condition (20:40). Condition: good and stable. CLINICAL IMPRESSION Acute right upper quadrant and left upper quadrant abdominal pain of undetermined cause. 11/08/2016 19:59 BP: 152/100. HR: 84. RR: 18. O2 saturation: 100%. Pain level now: 5/10. Vital Signs: have been reviewed as abnormal and appear to be correct. Hypertensive. Heart rate normal. Respiratory rate normal. Temperature normal. Oxygen saturation normal. INSTRUCTIONS Warnings: GENERAL WARNINGS: Return or contact your physician immediately if your condition worsens or changes unexpectedly, if not improving as expected, or if other problems arise. Specifically return if problem worsens. Prescription Medications: Cipro 500 mg: take 1 tab orally every 12 hours for 3 days. Dispense six (6). No refills. Substitution is permissible. Ultram 50 mg tablets: take 1-2 orally every 6 hours as needed for pain. Dispense twenty (20). No refills. Substitution is permissible. Follow-up: Follow up with your doctor in about two days even if well. Call for an appointment. Summary of care provided to patient. Screening today revealed the patient's blood pressure to be in the hypertensive range. The patient should follow up with a primary care provider for blood pressure management. Understanding of the discharge instructions verbalized by patient. (Electronically signed by Rosa Casey A.R.N.P. 11/08/2016 20:59)
--- NOTE | 2016-11-08 20:59 | ED MED RECONCILIATION SUMMARY ---
Patient: BELLA AVERY Medication Reconciliation Report [facility] VisitID: [id number] [address] [place] [address] 31y, F Registration Date/Time: 11/08/2016 Weight: 81.6 kg Height/Length: 61 in. BMI: 34.0 ALLERGIES: Codeine, Darvocet, Pyridium, Sulfa Antibiotics The patient's Home Medications are listed below: THE FOLLOWING MEDICATIONS NEED TO BE RECONCILED: Ibuprofen Oral (600 mg) 1 tablet, 3x a day Lisinopril Oral 20 mg, daily MetFORMIN HCl Oral 500 mg, daily Seritriptoline 50mg 3 tabs for sleeping The source(s) of the original Home Medication information: Not obtained. The following Medications were given to the patient in the Emergency Department: Ibuprofen [PO] PO 800 mg, administered: 11/08/2016 8:43:00 PM The following Medications were prescribed to the patient: Cipro 500 mg: take 1 tab orally every 12 hours for 3 days. Dispense six (6). No refills. Substitution is permissible. -- Rosa Casey, Citlali.R.N.P. Ultram 50 mg tablets: take 1-2 orally every 6 hours as needed for pain. Dispense twenty (20). No refills. Substitution is permissible. -- Rosa Casey A.R.N.P.
--- NOTE | 2016-11-08 20:59 | ED MED RECONCILIATION SUMMARY ---
Patient: BELLA AVERY Medication Reconciliation Report [facility] VisitID: [id number] [address] [place] [address] 31y, F Registration Date/Time: 11/08/2016 Weight: 81.6 kg Height/Length: 61 in. BMI: 34.0 ALLERGIES: Codeine, Darvocet, Pyridium, Sulfa Antibiotics The patient's Home Medications are listed below: THE FOLLOWING MEDICATIONS NEED TO BE RECONCILED: Ibuprofen Oral (600 mg) 1 tablet, 3x a day Lisinopril Oral 20 mg, daily MetFORMIN HCl Oral 500 mg, daily Seritriptoline 50mg 3 tabs for sleeping The source(s) of the original Home Medication information: Not obtained. The following Medications were given to the patient in the Emergency Department: Ibuprofen [PO] PO 800 mg, administered: 11/08/2016 8:43:00 PM The following Medications were prescribed to the patient: Cipro 500 mg: take 1 tab orally every 12 hours for 3 days. Dispense six (6). No refills. Substitution is permissible. -- Rosa Casey, Citlali.R.N.P. Ultram 50 mg tablets: take 1-2 orally every 6 hours as needed for pain. Dispense twenty (20). No refills. Substitution is permissible. -- Rosa Casey A.R.N.P.
--- NOTE | 2016-11-08 20:59 | ED DISCHARGE INSTRUCTIONS ---
Patient: BELLA AVERY General Instructions [facility] VisitID: [id number] [place] [address] 31y, F Registration Date/Time: 11/08/2016 Acute right upper quadrant and left upper quadrant abdominal pain of undetermined cause. 11/08/2016 19:59 BP: 152/100. HR: 84. RR: 18. O2 saturation: 100%. Pain level now: 11/17. Vital Signs: have been reviewed as abnormal and appear to be correct. Hypertensive. Heart rate normal. Respiratory rate normal. Temperature normal. Oxygen saturation normal. INSTRUCTIONS Warnings: GENERAL WARNINGS: Return or contact your physician immediately if your condition worsens or changes unexpectedly, if not improving as expected, or if other problems arise. Specifically return if problem worsens. Prescription Medications: Cipro 500 mg: take 1 tab orally every 12 hours for 3 days. Dispense six (6). No refills. Substitution is permissible. Ultram 50 mg tablets: take 1-2 orally every 6 hours as needed for pain. Dispense twenty (20). No refills. Substitution is permissible. Follow-up: Follow up with your doctor in about two days even if well. Call for an appointment. Summary of care provided to patient. Screening today revealed the patient's blood pressure to be in the hypertensive range. The patient should follow up with a primary care provider for blood pressure management. Understanding of the discharge instructions verbalized by patient. ADDITIONAL INFORMATION Abdominal Pain, Unknown Cause (Female) The exact cause of your abdominal (stomach) pain is not certain. This does not mean that this is something to worry about, or the right tests were not done. Everyone likes to know the exact cause of the problem, but sometimes with abdominal pain, there is no clear-cut cause, and this could be a good thing. The good news is that your symptoms can be treated, and you will feel better. Your condition does not seem serious now; however, sometimes the signs of a serious problem may take more time to appear. For this reason,it is important for you to watch for any new symptoms, problems,or worsening of your condition. Over the next few days, the abdominal pain may come and go, or be continuous. Other common symptoms can include nausea and vomiting. Sometimes it can be difficult to tell if you feel nauseous, you may just feel bad and not associate that feeling with nausea. Constipation, diarrhea, and a fever may go along with the pain. The pain may continue even if treated correctly over the following days. Depending on how things go, sometimes the cause can become clear and may require further or different treatment. Additional evaluations, medications, or tests may be needed. Home care Your health care provider may prescribe medications for pain, symptoms, or an infection. Follow the health care provider's instructions for taking these medications. General care Rest until your next exam. No strenuous activities. Try to find positions that ease discomfort. A small pillow placed on the abdomen may help relieve pain. Something warm on your abdomen (such as a heating pad) may help, but be careful not to burn yourself. Diet Do not force yourself to eat, especially if having cramps, vomiting, or diarrhea. Water is important so you do not get dehydrated. Soup may also be good. Sports drinks may also help, especially if they are not too acidic. Make sure you don't drink sugary drinks as this can make things worse. Take liquids in small amounts. Do not guzzle them. Caffeine sometimes makes the pain and cramping worse. Avoid dairy products if you have vomiting or diarrhea. Don't eat large amounts at a time. Wait a few minutes between bites. Eat a diet low in fiber (called a low-residue diet). Foods allowed include refined breads, white rice, fruit and vegetable juices without pulp, tender meats. These foods will pass more easily through the intestine. Avoid whole-grain foods, whole fruits and vegetables, meats, seeds and nuts, fried or fatty foods, dairy, alcohol and spicy foods until your symptoms go away. Follow-up care Follow up with your health care provider as instructed, or if your pain does not begin to improve in the next 24 hours. When to seek medical care Seek prompt medical care if any of the following occur: Pain gets worse or moves to the right lower abdomen New or worsening vomiting or diarrhea Swelling of the abdomen Unable to pass stool for more than three days Fever of 100.4F (38C) or higher, or as directed by your healthcare provider. Blood in vomit or bowel movements (dark red or black color) Jaundice (yellow color of eyes and skin) Weakness, dizziness Chest, arm, back, neck or jaw pain Unexpected vaginal bleeding or missed period Call 911 Call emergency services if any of the following occur: Trouble breathing Confusion Fainting or loss of consciousness Rapid heart rate Seizure Ciprofloxacin Hydrochloride Oral tablet What is this medicine? CIPROFLOXACIN (sip nirav FLOX a sin) is a quinolone antibiotic. It is used to treat certain kinds of bacterial infections. It will not work for colds, flu, or other viral infections. How should I use this medicine? Take this medicine by mouth with a glass of water. Follow the directions on the prescription label. Take your medicine at regular intervals. Do not take your medicine more often than directed. Take all of your medicine as directed even if you think your are better. Do not skip doses or stop your medicine early. You can take this medicine with food or on an empty stomach. It can be taken with a meal that contains dairy or calcium, but do not take it alone with a dairy product, like milk or yogurt or calcium-fortified juice. A special MedGuide will be given to you by the pharmacist with each prescription and refill. Be sure to read this information carefully each time. Talk to your crisis therapist regarding the use of this medicine in children. Special care may be needed. What side effects may I notice from receiving this medicine? Side effects that you should report to your doctor or health healthcare economics consultant as soon as possible: - allergic reactions like skin rash, itching or hives, swelling of the face, lips, or tongue - breathing problems - confusion, nightmares or hallucinations - feeling faint or lightheaded, falls - irregular heartbeat - joint, muscle or tendon pain or swelling - pain or trouble passing urine -persistent headache with or without blurred vision - redness, blistering, peeling or loosening of the skin, including inside the mouth - seizure - unusual pain, numbness, tingling, or weakness Side effects that usually do not require medical attention (report to your doctor or health healthcare economics consultant if they continue or are bothersome): - diarrhea - nausea or stomach upset - white patches or sores in the mouth What may interact with this medicine? Do not take this medicine with any of the following medications: cisapride droperidol terfenadine tizanidine This medicine may also interact with the following medications: antacids caffeine cyclosporin didanosine (ddI) buffered tablets or powder medicines for diabetes medicines for inflammation like ibuprofen, naproxen methotrexate multivitamins omeprazole phenytoin probenecid sucralfate theophylline warfarin What if I miss a dose? If you miss a dose, take it as soon as you can. If it is almost time for your next dose, take only that dose. Do not take double or extra doses. Where should I keep my medicine? Keep out of the reach of children. Store at room temperature below 30 degrees C (86 degrees F). Keep container tightly closed. Throw away any unused medicine after the expiration date. What should I tell my health care provider before I take this medicine? They need to know if you have any of these conditions: -bone problems -cerebral disease -joint problems -irregular heartbeat -kidney disease -liver disease -myasthenia gravis -seizure disorder -tendon problems -an unusual or allergic reaction to ciprofloxacin, other antibiotics or medicines, foods, dyes, or preservatives - or trying to get -breast-feeding What should I watch for while using this medicine? Tell your doctor or health healthcare economics consultant if your symptoms do not improve. Do not treat diarrhea with over the counter products. Contact your doctor if you have diarrhea that lasts more than 2 days or if it is severe and watery. You may get drowsy or dizzy. Do not drive, use machinery, or do anything that needs mental alertness until you know how this medicine affects you. Do not stand or sit up quickly, especially if you are an older patient. This reduces the risk of dizzy or fainting spells. This medicine can make you more sensitive to the sun. Keep out of the sun. If you cannot avoid being in the sun, wear protective clothing and use sunscreen. Do not use sun lamps or tanning beds/booths. Avoid antacids, aluminum, calcium, iron, magnesium, and zinc products for 6 hours before and 2 hours after taking a dose of this medicine. Tramadol Hydrochloride Oral tablet What is this medicine? TRAMADOL (TRA ma dole) is a pain reliever. It is used to treat moderate to severe pain in adults. How should I use this medicine? Take this medicine by mouth with a full glass of water. Follow the directions on the prescription label. If the medicine upsets your stomach, take it with food or milk. Do not take more medicine than you are told to take. Talk to your crisis therapist regarding the use of this medicine in children. Special care may be needed. What side effects may I notice from receiving this medicine? Side effects that you should report to your doctor or health healthcare economics consultant as soon as possible: allergic reactions like skin rash, itching or hives, swelling of the face, lips, or tongue breathing difficulties, wheezing confusion itching light headedness or fainting spells redness, blistering, peeling or loosening of the skin, including inside the mouth seizures Side effects that usually do not require medical attention (report to your doctor or health healthcare economics consultant if they continue or are bothersome): constipation dizziness drowsiness headache nausea, vomiting What may interact with this medicine? Do not take this medicine with any of the following medications: MAOIs like Carbex, Eldepryl, Marplan, Nardil, and Parnate This medicine may also interact with the following medications: alcohol or medicines that contain alcohol antihistamines benzodiazepines bupropion carbamazepine or oxcarbazepine clozapine cyclobenzaprine digoxin furazolidone linezolid medicines for depression, anxiety, or psychotic disturbances medicines for migraine headache like almotriptan, eletriptan, frovatriptan, naratriptan, rizatriptan, sumatriptan, zolmitriptan medicines for pain like pentazocine, buprenorphine, butorphanol, meperidine, nalbuphine, and propoxyphene medicines for sleep muscle relaxants naltrexone phenobarbital phenothiazines like perphenazine, thioridazine, chlorpromazine, mesoridazine, fluphenazine, prochlorperazine, promazine, and trifluoperazine procarbazine warfarin What if I miss a dose? If you miss a dose, take it as soon as you can. If it is almost time for your next dose, take only that dose. Do not take double or extra doses. Where should I keep my medicine? Keep out of the reach of children. Store at room temperature between 15 and 30 degrees C (59 and 86 degrees F). Keep container tightly closed. Throw away any unused medicine after the expiration date. What should I tell my health care provider before I take this medicine? They need to know if you have any of these conditions: brain tumor depression drug abuse or addiction head injury if you frequently drink alcohol containing drinks kidney disease or trouble passing urine liver disease lung disease, asthma, or breathing problems seizures or epilepsy suicidal thoughts, plans, or attempt; a previous suicide attempt by you or a family member an unusual or allergic reaction to tramadol, codeine, other medicines, foods, dyes, or preservatives or trying to get breast-feeding What should I watch for while using this medicine? Tell your doctor or health healthcare economics consultant if your pain does not go away, if it gets worse, or if you have new or a different type of pain. You may develop tolerance to the medicine. Tolerance means that you will need a higher dose of the medicine for pain relief. Tolerance is normal and is expected if you take this medicine for a long time. Do not suddenly stop taking your medicine because you may develop a severe reaction. Your body becomes used to the medicine. This does NOT mean you are addicted. Addiction is a behavior related to getting and using a drug for a non-medical reason. If you have pain, you have a medical reason to take pain medicine. Your doctor will tell you how much medicine to take. If your doctor wants you to stop the medicine, the dose will be slowly lowered over time to avoid any side effects. You may get drowsy or dizzy. Do not drive, use machinery, or do anything that needs mental alertness until you know how this medicine affects you. Do not stand or sit up quickly, especially if you are an older patient. This reduces the risk of dizzy or fainting spells. Alcohol can increase or decrease the effects of this medicine. Avoid alcoholic drinks. You may have constipation. Try to have a bowel movement at least every 2 to 3 days. If you do not have a bowel movement for 3 days, call your doctor or health healthcare economics consultant. Your mouth may get dry. Chewing sugarless gum or sucking hard candy, and drinking plenty of water may help. Contact your doctor if the problem does not go away or is severe. You have been given the following additional information: Abdominal Pain, Unknown Cause, (Female) Ciprofloxacin Hydrochloride Oral tablet Tramadol Hydrochloride Oral tablet (Electronically signed by Rosa Casey A.R.N.P. 11/08/2016 20:59)
--- NOTE | 2016-11-08 20:59 | ED MAR SUMMARY ---
..... Medication Administration Record [facility] [address] [place] [address] Patient: BELLA AVERY Visit ID: [id number] 31y, F Weight: 81.6 kg Height/Length: 61 in BMI: 34 ALLERGIES: Codeine, Darvocet, Pyridium, Sulfa Antibiotics Given 20:43 11/08/2016 Melyssa Chavira R.N. Medication Administered: IBUPROFEN [PO], Dose: 800 mg Tablets PO. Medication Ordered: Ibuprofen PO 800 mg (NOW).
--- NOTE | 2016-11-08 20:59 | ED MAR SUMMARY ---
..... Medication Administration Record [facility] [address] [place] [address] Patient: BELLA AVERY Visit ID: [id number] 31y, F Weight: 81.6 kg Height/Length: 61 in BMI: 34 ALLERGIES: Codeine, Darvocet, Pyridium, Sulfa Antibiotics Given 20:43 11/08/2016 Melyssa Chavira R.N. Medication Administered: IBUPROFEN [PO], Dose: 800 mg Tablets PO. Medication Ordered: Ibuprofen PO 800 mg (NOW).
== END 2016-11-08 20:50 | disposition home or self-care (01) ==
LOC: ED SRH 19:19
DX: R10.11 Right upper quadrant pain (principal); R10.12 Left upper quadrant pain; E11.9 Type 2 diabetes mellitus without complications; I10 Essential (primary) hypertension; Z88.5 Allergy status to narcotic agent; Z88.2 Allergy status to sulfonamides; Z88.8 Allergy status to other drugs, medicaments and biological substances
CPT/HCPCS: 90004; 90100; 92235; 92530; 93070; 95059

== ENCOUNTER 2017-01-18 18:04 | Emergency (ER) | payer MEDICARE, OTHER ==
--- NOTE | 2017-01-18 20:06 | ED CLINICAL REPORT ---
Clinical Report - Physicians/Mid Levels [facility] [address] [place] [address] 01/18/2017 18:08 Patient: BELLA AVERY Time Seen: 19:31; initial patient contact, initial documentation, patient care assumed. Arrived- By private vehicle. Historian- patient. HISTORY OF PRESENT ILLNESS Chief Complaint: DYSURIA. This started yesterday and still present. It was abrupt in onset. The symptoms are described as mild. Modifying factors- worsened by movement and urination. Not relieved by anything. The patient has had abdominal pain. The pain is described as located in the suprapubic region, lower back pain and flank pain. No pelvic pain, vaginal pain, abnormal bleeding, vaginal discharge or urgency of urination. No hematuria. The patient has had pain with urination. The patient has had urinary frequency. Denies current . Similar symptoms previously: None. Recent medical care: Not recently seen/assessed. REVIEW OF SYSTEMS No vomiting, diarrhea, fever, difficulty breathing or chest pain. c/o blurry vision. All systems otherwise negative, except as recorded above. PAST HISTORY See nurses notes. ( PROBLEMS: Pyelonephritis. Ureterolithiasis. Diabetes Mellitus. Pharyngitis. Bronchitis. URI. Acute Otalgia. Leukocytosis. Anemia. Dehydration. Chronic Back Pain. UTI - Urinary Tract Infection. Nephrolithiasis. Endometriosis. STD - Sexually Transmitted Disease. Hypertension. --18:32 Terry Alexis, R.N. ADDITIONAL SURGERIES: Cholecystectomy. Tubal Ligation. --18:32 Terry Alexis R.N.). SOCIAL HISTORY Never smoker. Occasional alcohol use. History of heavy drug use: marijuana. Recently used drugs yesterday. No recent travel. Is a local resident. FAMILY HISTORY Negative. ADDITIONAL NOTES The nursing notes have been reviewed with agreement regarding the chief complaint, HPI, ROS, PMH and patient medications and allergies. PHYSICAL EXAM Vital Signs: 01/18/2017 18:22 BP: 151/109. HR: 80. RR: 16. O2 saturation: 97%. Temp: 98.3 F. Have been reviewed as abnormal and appear to be correct. Hypertensive. Heart rate normal. Respiratory rate normal. Temperature normal. Oxygen saturation normal. Appearance: Alert. Oriented X3. No acute distress. HEENT: Normal external inspection. ENT: Pharynx normal. Neck: Neck supple. CVS: Heart sounds normal. Respiratory: No respiratory distress. Breath sounds normal. Chest nontender. Abdomen: Soft and nontender. Back: Normal external inspection. Skin: Skin warm and dry. Normal skin color. No rash. Normal skin turgor. Extremities: Extremities nontender. No lower extremity edema. Neuro: Oriented X 3. Mood/affect normal. No motor deficit. No sensory deficit. LABS, X-RAYS, AND EKG Laboratory Tests: UA-Culture if indicated: (LORETO: 01/18/2017 18:24) ( MsgRcvd 01/18/2017 19:03) Final results Test Result Flag Units (Reference) URINE COLOR YELLOW URINE APPEARANCE CLEAR URINE GLUCOSE 2+ (NEGATIVE) URINE BILIRUBIN NEGATIVE (NEGATIVE) URINE KETONE NEGATIVE (NEGATIVE) URINE SPECIFIC GRAVITY 1.015 (1.010-1.030) URINE PH 6.0 (5.0-8.0) URINE PROTEIN NEGATIVE (NEGATIVE) URINE UROBILINOGEN 0.2 EU/dL (0.2-1.0) URINE NITRITE NEGATIVE (NEGATIVE) URINE BLOOD NEGATIVE (NEGATIVE) URINE LEUK ESTERASE NEGATIVE (NEGATIVE) URINE RBC RARE rbc/hpf (0-1) URINE WBC RARE wbc/hpf (0-1) URINE EPITHELIAL CELLS RARE EPI/hpf (0-5) URINE BACTERIA TRACE (<1+) (NONE SEEN) URINE COMMENT CULT NOT INDICATED URINE CULTURES ARE SET-UP BASED ON THE FOLLOWING CRITERIA:POSITIVE NITRITEPOSITIVE LEUKOCYTE ESTERASEGREATER THAN 10 WHITE BLOOD CELLSMODERATE (2+) OR GREATER BACTERIA . Bedside Tests: Glucose: mild hyperglycemia - 190 (performed at bedside). PROGRESS AND PROCEDURES Course of Care: Visual acuity done by me during exam R eye 20/25 L eye 20/20 tx plan discussed and agreed to rx abx, and the pyridium pills. 01/18/2017 19:43 BP: 151/105. HR: 85. RR: 14. O2 saturation: 99%. Pain level now: 4/10. Vital Signs: have been reviewed as abnormal and appear to be correct. Hypertensive. Heart rate normal. Respiratory rate normal. Temperature normal. Oxygen saturation normal. Patient counseled in person regarding the patient's stable condition, test results and diagnosis. Differential Diagnosis: Other possible considerations: dka, uncontrolled dm, hyperglycemia, uti, pyelo, renal stone. Above considerations are based on history, physical exam, reassessment and laboratory data. Differential diagnosis was discussed with patient. Disposition: Discharged home in good and unchanged condition (20:06). Condition: good and stable. CLINICAL IMPRESSION Acute urinary tract infection with cystitis. No pyelonephritis or hematuria. Not associated with indwelling catheter or obstruction. INSTRUCTIONS Drink plenty of fluids for the next 24 hours until better. Warnings: GENERAL WARNINGS: Return or contact your physician immediately if your condition worsens or changes unexpectedly, if not improving as expected, or if other problems arise. Specifically return if problem worsens. Prescription Medications: Pyridium 200 mg: take 1 orally every 8 hours as needed for urinary problems. Dispense six (6). No refills. Substitution is permissible. Macrobid 100 mg: take 1 capsule orally every 12 hours for 5 days. No refill. Toradol 10 mg tablets: Take 1 tablet orally every 6 hours as needed. Dispense fifteen (15). No refills. Substitution is permissible. Follow-up: Follow up with your doctor in about three days as needed. Call for an appointment. Summary of care provided to patient. Screening today revealed the patient's blood pressure to be in the hypertensive range. The patient should follow up with a primary care provider for blood pressure management. Understanding of the discharge instructions verbalized by patient. (Electronically signed by Rosa Casey A.R.N.P. 01/18/2017 20:18)
--- NOTE | 2017-01-18 20:06 | ED NURSING NOTES ---
Clinical Report - Nurses [facility] [address] [place] [address] 01/18/2017 18:08 Patient: BELLA AVERY TRIAGE Triage time 18:23. Acuity: LEVEL 3. Chief Complaint: PAINFUL URINATION and FREQUENCY and LOW BACK PAIN and LEFT-SIDED FLANK PAIN (Pt thinks she has a UTI based on similarity of symptoms with past diagnosis. Pt also c/o blurred vision in left eye.). Alert. No acute distress. ROGELIO COMA SCORE: [place] Coma Scale: 15- eyes open spontaneously (4); best verbal response- oriented x 4 (5); best motor response- obeys commands (6). --18:38 Terry Alexis R.N. 18:22 01/18/17. BP: 151/109. HR: 80. RR: 16. O2 saturation: 97%. Temp: 98.3 F. Pain level now 10. --18:38 Terry Alexis R.N. Weight: 81.6 kg stated. Height/Length: 61 inches Per Patient. BMI: 34. --18:36 Terry Alexis R.N. Medications MetFORMIN HCl Oral. --18:28 Terry Alexis R.N. Allergies Codeine. --18:29 Terry Alexis R.N. Sulfa Antibiotics. --18:29 Terry Alexis R.N. Propoxyphene. --18:30 Terry Alexis R.N. Phenazopyridine. --18:30 Terry Alexis R.N. History Arrived by private vehicle. Historian: patient. This started yesterday. ( burning sensation on urination). 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 PAST MEDICAL HX: Diabetes mellitus. Hypertension. Sexually transmitted disease. Endometriosis. Immunizations: up-to-date. Last normal menstrual period- 2 weeks ago. Denies current . SOCIAL HX: Never smoker. Occasional alcohol use. History of heavy drug use: marijuana. No infectious disease exposure. FALL RISK ASSESSMENT: Fall risk assessment completed. No fall risk identified. NUTRITIONAL RISK ASSESSMENT: The nutritional risk assessment revealed no deficiencies. FUNCTIONAL ASSESSMENT: Functional assessment: no impairments noted. LEARNING NEEDS ASSESSMENT: The learning needs assessment revealed no barriers. ABUSE ASSESSMENT: Abuse assessment: The patient was asked "Do you feel safe in your home?". SKIN INTEGRITY ASSESSMENT: Skin integrity risk assessment completed. No skin integrity risk identified. --18:38 Terry Alexis R.N. PROBLEMS: Pyelonephritis. Ureterolithiasis. Diabetes Mellitus. Pharyngitis. Bronchitis. URI. Acute Otalgia. Leukocytosis. Anemia. Dehydration. Chronic Back Pain. UTI - Urinary Tract Infection. Nephrolithiasis. Endometriosis. STD - Sexually Transmitted Disease. Hypertension. --18:32 Terry Alexis R.N. ADDITIONAL SURGERIES: Cholecystectomy. Tubal Ligation. --18:32 Terry Alexis R.N. Interventions ID band on patient. To treatment room. --18:38 Terry Alexis R.N. PHYSICAL ASSESSMENT Ambulatory to room. GENERAL / NEURO / PSYCH: Alert. Oriented X 4. Appears in no acute distress. HEENT: Mucous membranes are pink. RESPIRATORY: Respirations not labored. CVS: Capillary refill less than 2 seconds. GI / : Abdomen soft. Abdominal tenderness in the lower abdomen. Burning during urination that is associated with frequency. No vaginal bleeding. No vaginal discharge. ( Pt declined vaginal bleeding/discharge.). SKIN: Skin is warm and dry. --18:39 Terry Alexis R.N. NURSING PROGRESS NOTES The plan of care for this patient has been created. Head of bed elevated. Reassurance given. Two patient identifiers checked. Call light placed in reach. Side rails up x 1. Bed placed in lowest position. Brakes of bed on. Patient ready for evaluation- CONTENT DEVELOPMENT SPECIALIST notified. --18:39 Terry Alexis R.N. Care transferred and report given (to Amy Casarez RN). --19:10 Terry Alexis R.N. ( Informed patient of status and that new RN would be taking over. Patient waiting patiently and has no further needs at this time.). Patient waiting for lab results. --19:11 Terry Alexis R.N. Care transferred and report received (from Terry Carrasco RN). --19:19 Amy Matos R.N. ( 1944 POC glucose is 190 mg/dL). --19:53 Mini Preston 19:43 01/18/17. BP: 151/105 taken on the left arm, while sitting. HR: 85. RR: 14. O2 saturation: 99%. Temp: deferred. Pain level now: 10/18. --20:00 Amy Matos R.N. 19:43. Patient informed about reason for wait and about plan of care. --20:00 Amy Matos R.N. DISPOSITION / DISCHARGE 20:13 01/18/17. No learning barriers present. Discharge instructions provided and reviewed with the patient. Reviewed warnings. Reviewed medication(s). Treatments reviewed. Patient verbalized understanding. Written instructions provided in Swedish. The patient was discharged home. She left the Emergency Department ambulatory and via private vehicle. Patient driving. --20:13 Amy Matos R.N. 19:43 01/18/17. BP: 151/105 taken on the left arm, while sitting. HR: 85. RR: 14. O2 saturation: 99%. Temp: deferred. Pain level now: 10/18. --20:13 Amy Matos R.N. Locked/Released at 01/18/2017 21:50 by Amy Matos R.N.
--- NOTE | 2017-01-18 20:06 | ED ORDER SUMMARY ---
..... Patient: BELLA AVERY OrderSheet [facility] VisitID: [id number] [address] [place] [address] 31y, F Registration Date/Time: 01/18/2017 ORDER SHEET Weight: 81.6 kg (stated) Allergies: Codeine, Sulfa Antibiotics, Propoxyphene, Phenazopyridine GENERAL ORDERS: UA-Culture if indicated Urgent (18:41 01/18/2017 IJurca R.N. per protocol) (18:41 IJurca R.N.) POC Glucose (19:32 01/18/2017 HBivens A.R.N.P.) (Ack 19:45 RMarsden R.N.) (19:47 RMdebra R.N.) MEDICATION ORDERS: IV FLUIDS: ORDER SHEET NOTES: [Electronically signed by Rosa CaseyR.N.PCherie (20:18 01/18/2017)] [Electronically signed by Amy Matos R.N. (21:50 01/18/2017)] [Electronically locked/signed by Amy Matos R.N. (21:50 01/18/2017)]
--- NOTE | 2017-01-18 20:06 | ED NURSING NOTES ---
Clinical Report - Nurses [facility] [address] [place] [address] 01/18/2017 18:08 Patient: BELLA AVERY TRIAGE Triage time 18:23. Acuity: LEVEL 3. Chief Complaint: PAINFUL URINATION and FREQUENCY and LOW BACK PAIN and LEFT-SIDED FLANK PAIN (Pt thinks she has a UTI based on similarity of symptoms with past diagnosis. Pt also c/o blurred vision in left eye.). Alert. No acute distress. ROGELIO COMA SCORE: [place] Coma Scale: 15- eyes open spontaneously (4); best verbal response- oriented x 4 (5); best motor response- obeys commands (6). --18:38 Terry Alexis R.N. 18:22 01/18/17. BP: 151/109. HR: 80. RR: 16. O2 saturation: 97%. Temp: 98.3 F. Pain level now 10. --18:38 Terry Alexis R.N. Weight: 81.6 kg stated. Height/Length: 61 inches Per Patient. BMI: 34. --18:36 Terry Alexis R.N. Medications MetFORMIN HCl Oral. --18:28 Terry Alexis R.N. Allergies Codeine. --18:29 Terry Alexis R.N. Sulfa Antibiotics. --18:29 Terry Alexis R.N. Propoxyphene. --18:30 Terry Alexis R.N. Phenazopyridine. --18:30 Terry Alexis R.N. History Arrived by private vehicle. Historian: patient. This started yesterday. ( burning sensation on urination). 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 PAST MEDICAL HX: Diabetes mellitus. Hypertension. Sexually transmitted disease. Endometriosis. Immunizations: up-to-date. Last normal menstrual period- 2 weeks ago. Denies current . SOCIAL HX: Never smoker. Occasional alcohol use. History of heavy drug use: marijuana. No infectious disease exposure. FALL RISK ASSESSMENT: Fall risk assessment completed. No fall risk identified. NUTRITIONAL RISK ASSESSMENT: The nutritional risk assessment revealed no deficiencies. FUNCTIONAL ASSESSMENT: Functional assessment: no impairments noted. LEARNING NEEDS ASSESSMENT: The learning needs assessment revealed no barriers. ABUSE ASSESSMENT: Abuse assessment: The patient was asked "Do you feel safe in your home?". SKIN INTEGRITY ASSESSMENT: Skin integrity risk assessment completed. No skin integrity risk identified. --18:38 Terry Alexis R.N. PROBLEMS: Pyelonephritis. Ureterolithiasis. Diabetes Mellitus. Pharyngitis. Bronchitis. URI. Acute Otalgia. Leukocytosis. Anemia. Dehydration. Chronic Back Pain. UTI - Urinary Tract Infection. Nephrolithiasis. Endometriosis. STD - Sexually Transmitted Disease. Hypertension. --18:32 Terry Alexis R.N. ADDITIONAL SURGERIES: Cholecystectomy. Tubal Ligation. --18:32 Terry Alexis R.N. Interventions ID band on patient. To treatment room. --18:38 Terry Alexis R.N. PHYSICAL ASSESSMENT Ambulatory to room. GENERAL / NEURO / PSYCH: Alert. Oriented X 4. Appears in no acute distress. HEENT: Mucous membranes are pink. RESPIRATORY: Respirations not labored. CVS: Capillary refill less than 2 seconds. GI / : Abdomen soft. Abdominal tenderness in the lower abdomen. Burning during urination that is associated with frequency. No vaginal bleeding. No vaginal discharge. ( Pt declined vaginal bleeding/discharge.). SKIN: Skin is warm and dry. --18:39 Terry Alexis R.N. NURSING PROGRESS NOTES The plan of care for this patient has been created. Head of bed elevated. Reassurance given. Two patient identifiers checked. Call light placed in reach. Side rails up x 1. Bed placed in lowest position. Brakes of bed on. Patient ready for evaluation- BEATER BOSS notified. --18:39 Terry Alexis R.N. Care transferred and report given (to Amy Casarez RN). --19:10 Terry Alexis R.N. ( Informed patient of status and that new RN would be taking over. Patient waiting patiently and has no further needs at this time.). Patient waiting for lab results. --19:11 Terry Alexis R.N. Care transferred and report received (from Terry Carrasco RN). --19:19 Amy Matos R.N. ( 1943 POC glucose is 190 mg/dL). --19:53 Mini Preston 19:43 01/18/17. BP: 151/105 taken on the left arm, while sitting. HR: 85. RR: 14. O2 saturation: 99%. Temp: deferred. Pain level now: 10/18. --20:00 Amy Matos R.N. 19:43. Patient informed about reason for wait and about plan of care. --20:00 Amy Matos R.N. DISPOSITION / DISCHARGE 20:13 01/18/17. No learning barriers present. Discharge instructions provided and reviewed with the patient. Reviewed warnings. Reviewed medication(s). Treatments reviewed. Patient verbalized understanding. Written instructions provided in Mongolian. The patient was discharged home. She left the Emergency Department ambulatory and via private vehicle. Patient driving. --20:13 Amy Matos R.N. 19:43 01/18/17. BP: 151/105 taken on the left arm, while sitting. HR: 85. RR: 14. O2 saturation: 99%. Temp: deferred. Pain level now: 10/18. --20:13 Amy Matos R.N. Locked/Released at 01/18/2017 21:50 by Amy Matos R.N.
--- NOTE | 2017-01-18 20:06 | ED ORDER SUMMARY ---
..... Patient: BELLA AVERY OrderSheet [facility] VisitID: [id number] [address] [place] [address] 31y, F Registration Date/Time: 01/18/2017 ORDER SHEET Weight: 81.6 kg (stated) Allergies: Codeine, Sulfa Antibiotics, Propoxyphene, Phenazopyridine GENERAL ORDERS: UA-Culture if indicated Urgent (18:41 01/18/2017 IJurca R.N. per protocol) (18:41 IJurca R.N.) POC Glucose (19:32 01/18/2017 HBivens A.R.N.P.) (Ack 19:45 RMarsden R.N.) (19:47 RMdebra R.N.) MEDICATION ORDERS: IV FLUIDS: ORDER SHEET NOTES: [Electronically signed by Rosa CaseyR.N.PCherie (20:18 01/18/2017)] [Electronically signed by Amy Matos R.N. (21:50 01/18/2017)] [Electronically locked/signed by Amy Matos R.N. (21:50 01/18/2017)]
--- NOTE | 2017-01-18 21:50 | ED MED RECONCILIATION SUMMARY ---
Patient: BELLA AVERY Medication Reconciliation Report [facility] VisitID: [id number] [place] [address] 31y, F Registration Date/Time: 01/18/2017 Weight: 81.6 kg Height/Length: 61 in. BMI: 34.0 ALLERGIES: Codeine, Phenazopyridine, Propoxyphene, Sulfa Antibiotics The patient's Home Medications are listed below: THE FOLLOWING MEDICATIONS NEED TO BE RECONCILED: MetFORMIN HCl Oral The source(s) of the original Home Medication information: Not obtained. The following Medications were given to the patient in the Emergency Department: None. The following Medications were prescribed to the patient: Pyridium 200 mg: take 1 orally every 8 hours as needed for urinary problems. Dispense six (6). No refills. Substitution is permissible. -- Rosa Casey A.R.N.P. Macrobid 100 mg: take 1 capsule orally every 12 hours for 5 days. No refill. -- Rosa Casey A.R.N.P. Toradol 10 mg tablets: Take 1 tablet orally every 6 hours as needed. Dispense fifteen (15). No refills. Substitution is permissible. -- Rosa Casey A.R.N.P.
--- NOTE | 2017-01-18 21:50 | ED DISCHARGE INSTRUCTIONS ---
Patient: BELLA AVERY General Instructions [facility] VisitID: [id number] [place] [address] 31y, F Registration Date/Time: 01/18/2017 Acute urinary tract infection with cystitis. No pyelonephritis or hematuria. Not associated with indwelling catheter or obstruction. INSTRUCTIONS Drink plenty of fluids for the next 24 hours until better. Warnings: GENERAL WARNINGS: Return or contact your physician immediately if your condition worsens or changes unexpectedly, if not improving as expected, or if other problems arise. Specifically return if problem worsens. Prescription Medications: Pyridium 200 mg: take 1 orally every 8 hours as needed for urinary problems. Dispense six (6). No refills. Substitution is permissible. Macrobid 100 mg: take 1 capsule orally every 12 hours for 5 days. No refill. Toradol 10 mg tablets: Take 1 tablet orally every 6 hours as needed. Dispense fifteen (15). No refills. Substitution is permissible. Follow-up: Follow up with your doctor in about three days as needed. Call for an appointment. Summary of care provided to patient. Screening today revealed the patient's blood pressure to be in the hypertensive range. The patient should follow up with a primary care provider for blood pressure management. Understanding of the discharge instructions verbalized by patient. ADDITIONAL INFORMATION Bladder Infection,Female (Adult) A bladder infection ("cystitis" or "UTI") usually causes a constant urge to urinate and a burning when passing urine. Urine may be cloudy, smelly or dark. There may be pain in the lower abdomen. A bladder infection occurs when bacteria from the vaginal area enter the bladder opening (urethra). This can occur from sexual intercourse, wearing tight clothing, dehydration and other factors. Home Care: Drink lots of fluids (at least 6-8 glasses a day, unless you must restrict fluids for other medical reasons). This will force the medicine into your urinary system and flush the bacteria out of your body. Avoid sexual intercourse until your symptoms are gone. Avoid caffeine, alcohol and spicy foods. These can irritate the bladder. A bladder infection is treated with antibiotics. You may also be given Pyridium (generic = phenazopyridine) to reduce the burning sensation. This medicine will cause your urine to become a bright orange color. The orange urine may stain clothing. You may wear a pad or panty-liner to protect clothing. Preventing Future Infections: Always wipe from front to back after a bowel movement. Keep the genital area clean and dry. Drink plenty of fluids each day to avoid dehydration. Both sexual partners should wash before intercourse. Urinate right after intercourse to flush out the bladder. Wear cotton underwear and cotton-lined panty hose; avoid tight-fitting pants. If you are on control pills and are having frequent bladder infections, discuss with your doctor. Follow Up: Return to this facility or see your doctor if ALL symptoms are not gone after three days of treatment. Get Prompt Medical Attention if any of the following occur: Fever of 100.4F (38C) or higher, or as directed by your healthcare provider No improvement by the third day of treatment Increasing back or abdominal pain Repeated vomiting; unable to keep medicine down Weakness, dizziness or fainting Vaginal discharge Pain, redness or swelling in the labia (outer vaginal area) Phenazopyridine Hydrochloride Oral tablet What is this medicine? PHENAZOPYRIDINE (fen az oh PEER i katherine) is a pain reliever. It is used to stop the pain, burning, or discomfort caused by infection or irritation of the urinary tract. This medicine is not an antibiotic. It will not cure a urinary tract infection. How should I use this medicine? Take this medicine by mouth with a glass of water. Follow the directions on the prescription label. Take after meals. Take your doses at regular intervals. Do not take your medicine more often than directed. Do not skip doses or stop your medicine early even if you feel better. Do not stop taking except on your doctor's advice. Talk to your veterinary milk specialist regarding the use of this medicine in children. Special care may be needed. What side effects may I notice from receiving this medicine? Side effects that you should report to your doctor or health transitional care liaison as soon as possible: allergic reactions like skin rash, itching or hives, swelling of the face, lips, or tongue blue or purple color of the skin difficulty breathing fever less urine unusual bleeding, bruising unusual tired, weak vomiting yellowing of the eyes or skin Side effects that usually do not require medical attention (report to your doctor or health transitional care liaison if they continue or are bothersome): dark urine headache stomach upset What may interact with this medicine? Interactions are not expected. What if I miss a dose? If you miss a dose, take it as soon as you can. If it is almost time for your next dose, take only that dose. Do not take double or extra doses. Where should I keep my medicine? Keep out of the reach of children. Store at room temperature between 15 and 30 degrees C (59 and 86 degrees F). Protect from light and moisture. Throw away any unused medicine after the expiration date. What should I tell my health care provider before I take this medicine? They need to know if you have any of these conditions: [id number] dehydrogenase (G6PD) deficiency kidney disease an unusual or allergic reaction to phenazopyridine, other medicines, foods, dyes, or preservatives or trying to get breast-feeding What should I watch for while using this medicine? Tell your doctor or health transitional care liaison if your symptoms do not improve or if they get worse. This medicine colors body fluids red. This effect is harmless and will go away after you are done taking the medicine. It will change urine to an dark orange or red color. The red color may stain clothing. Soft contact lenses may become permanently stained. It is best not to wear soft contact lenses while taking this medicine. If you are diabetic you may get a false positive result for sugar in your urine. Talk to your health care provider. Nitrofurantoin, Nitrofurantoin, Macrocrystalline Oral capsule What is this medicine? NITROFURANTOIN (mariely alexi velarde AN toyn) is an antibiotic. It is used to treat urinary tract infections. How should I use this medicine? Take this medicine by mouth with a glass of water. Follow the directions on the prescription label. Take this medicine with food or milk. Take your doses at regular intervals. Do not take your medicine more often than directed. Do not stop taking except on your doctor's advice. Talk to your veterinary milk specialist regarding the use of this medicine in children. While this drug may be prescribed for selected conditions, precautions do apply. What side effects may I notice from receiving this medicine? Side effects that you should report to your doctor or health transitional care liaison as soon as possible: allergic reactions like skin rash or hives, swelling of the face, lips, or tongue chest pain cough difficulty breathing dizziness, drowsiness fever or infection joint aches or pains pale or blue-tinted skin redness, blistering, peeling or loosening of the skin, including inside the mouth tingling, burning, pain, or numbness in hands or feet unusual bleeding or bruising unusually weak or tired yellowing of eyes or skin Side effects that usually do not require medical attention (report to your doctor or health transitional care liaison if they continue or are bothersome): dark urine diarrhea headache loss of appetite nausea or vomiting temporary hair loss What may interact with this medicine? antacids containing magnesium trisilicate probenecid quinolone antibiotics like ciprofloxacin, lomefloxacin, norfloxacin and ofloxacin sulfinpyrazone What if I miss a dose? If you miss a dose, take it as soon as you can. If it is almost time for your next dose, take only that dose. Do not take double or extra doses. Where should I keep my medicine? Keep out of the reach of children. Store at room temperature between 15 and 30 degrees C (59 and 86 degrees F). Protect from light. Throw away any unused medicine after the expiration date. What should I tell my health care provider before I take this medicine? They need to know if you have any of these conditions: anemia diabetes rnapflw-1-fjeqtszsx dehydrogenase deficiency kidney disease liver disease lung disease other chronic illness an unusual or allergic reaction to nitrofurantoin, other antibiotics, other medicines, foods, dyes or preservatives or trying to get breast-feeding What should I watch for while using this medicine? Tell your doctor or health transitional care liaison if your symptoms do not improve or if you get new symptoms. Drink several glasses of water a day. If you are taking this medicine for a long time, visit your doctor for regular checks on your progress. If you are diabetic, you may get a false positive result for sugar in your urine with certain brands of urine tests. Check with your doctor. Ketorolac Tromethamine Oral tablet What is this medicine? KETOROLAC (keyshawn toe ROLE ak) is a non-steroidal anti-inflammatory drug (NSAID). It is used for a short while to treat moderate to severe pain, including pain after surgery. It should not be used for more than 5 days. How should I use this medicine? Take this medicine by mouth with a full glass of water. Follow the directions on the prescription label. Take your medicine at regular intervals. Do not take your medicine more often than directed. Do not take more than the recommended dose. A special MedGuide will be given to you by the pharmacist with each prescription and refill. Be sure to read this information carefully each time. Talk to your veterinary milk specialist regarding the use of this medicine in children. While this drug may be prescribed for children as young as 16 years of age for selected conditions, precautions do apply. Patients over 65 years old may have a stronger reaction and need a smaller dose. What side effects may I notice from receiving this medicine? Side effects that you should report to your doctor or health transitional care liaison as soon as possible: allergic reactions like skin rash, itching or hives, swelling of the face, lips, or tongue black or tarry stools breathing problems changes in vision chest pain high blood pressure nausea or vomiting redness, blistering, peeling or loosening of the skin, including inside the mouth severe abdominal pain slurred speech or weakness on one side of the body unexplained weight gain or swelling unusual bleeding or bruising unusually weak or tired yellowing of eyes or skin Side effects that usually do not require medical attention (report to your doctor or health transitional care liaison if they continue or are bothersome): diarrhea dizziness headache heartburn What may interact with this medicine? Do not take this medicine with any of the following medications: aspirin and aspirin-like medicines cidofovir methotrexate NSAIDs, medicines for pain and inflammation, like ibuprofen or naproxen pemetrexed probenecid This medicine may also interact with the following medications: alcohol alendronate alprazolam carbamazepine cyclosporine diuretics flavocoxid fluoxetine ginkgo lithium medicines for high blood pressure like enalapril medicines that affect platelets like pentoxifylline medicines that treat or prevent blood clots like heparin, warfarin muscle relaxants phenytoin steroid medicines like prednisone or cortisone thiothixene What if I miss a dose? If you miss a dose, take it as soon as you can. If it is almost time for your next dose, take only that dose. Do not take double or extra doses. Where should I keep my medicine? Keep out of the reach of children. Store at room temperature between 20 and 25 degrees C (68 and 77 degrees F). Throw away any unused medicine after the expiration date. What should I tell my health care provider before I take this medicine? They need to know if you have any of these conditions: asthma bleeding problems like hemophilia cigarette smoker drink more than 3 alcohol containing drinks a day heart disease or circulation problems such as heart failure or leg edema (fluid retention) high blood pressure kidney disease liver disease stomach bleeding or ulcers an unusual or allergic reaction to ketorolac, aspirin, other NSAIDs, other medicines, foods, dyes, or preservatives or trying to get breast-feeding What should I watch for while using this medicine? Tell your doctor or health transitional care liaison if your pain does not get better. Talk to your doctor before taking another medicine for pain. Do not treat yourself. This medicine does not prevent heart attack or stroke. In fact, this medicine may increase the chance of a heart attack or stroke. The chance may increase with longer use of this medicine and in people who have heart disease. If you take aspirin to prevent heart attack or stroke, talk with your doctor or health transitional care liaison. Do not take medicines such as ibuprofen and naproxen with this medicine. Side effects such as stomach upset, nausea, or ulcers may be more likely to occur. Many medicines available without a prescription should not be taken with this medicine. This medicine can cause ulcers and bleeding in the stomach and intestines at any time during treatment. Do not smoke cigarettes or drink alcohol. These increase irritation to your stomach and can make it more susceptible to damage from this medicine. Ulcers and bleeding can happen without warning symptoms and can cause . You may get drowsy or dizzy. Do not drive, use machinery, or do anything that needs mental alertness until you know how this medicine affects you. Do not stand or sit up quickly, especially if you are an older patient. This reduces the risk of dizzy or fainting spells. This medicine can cause you to bleed more easily. Try to avoid damage to your teeth and gums when you brush or floss your teeth. You have been given the following additional information: Bladder Infection, Female (Adult) Phenazopyridine Hydrochloride Oral tablet Nitrofurantoin, Nitrofurantoin, Macrocrystalline Oral capsule Ketorolac Tromethamine Oral tablet (Electronically signed by Rosa Casey A.R.N.P. 01/18/2017 20:18)
--- NOTE | 2017-01-18 21:50 | ED MAR SUMMARY ---
..... Medication Administration Record [facility] [address] [place] [id number] Patient: BELLA AVERY Visit ID: [id number] 31y, F Weight: 81.6 kg Height/Length: 61 in BMI: 34 ALLERGIES: Phenazopyridine, Propoxyphene, Sulfa Antibiotics, Codeine
--- NOTE | 2017-01-18 21:50 | ED MAR SUMMARY ---
..... Medication Administration Record [facility] [address] [place], [place] [id number] Patient: BELLA AVERY Visit ID: [id number] 31y, F Weight: 81.6 kg Height/Length: 61 in BMI: 34 ALLERGIES: Phenazopyridine, Propoxyphene, Sulfa Antibiotics, Codeine
--- NOTE | 2017-01-18 21:50 | ED MED RECONCILIATION SUMMARY ---
Patient: BELLA AVERY Medication Reconciliation Report [facility] VisitID: [id number] [place] [address] 31y, F Registration Date/Time: 01/18/2017 Weight: 81.6 kg Height/Length: 61 in. BMI: 34.0 ALLERGIES: Codeine, Phenazopyridine, Propoxyphene, Sulfa Antibiotics The patient's Home Medications are listed below: THE FOLLOWING MEDICATIONS NEED TO BE RECONCILED: MetFORMIN HCl Oral The source(s) of the original Home Medication information: Not obtained. The following Medications were given to the patient in the Emergency Department: None. The following Medications were prescribed to the patient: Pyridium 200 mg: take 1 orally every 8 hours as needed for urinary problems. Dispense six (6). No refills. Substitution is permissible. -- Rosa Casey A.R.N.P. Macrobid 100 mg: take 1 capsule orally every 12 hours for 5 days. No refill. -- Rosa Casey A.R.N.P. Toradol 10 mg tablets: Take 1 tablet orally every 6 hours as needed. Dispense fifteen (15). No refills. Substitution is permissible. -- Rosa Casey A.R.N.P.
== END 2017-01-18 20:13 | disposition home or self-care (01) ==
LOC: ED SRH 18:04
DX: N30.90 Cystitis, unspecified without hematuria (principal); E11.9 Type 2 diabetes mellitus without complications; I10 Essential (primary) hypertension; Z79.84 Long term (current) use of oral hypoglycemic drugs; Z88.5 Allergy status to narcotic agent; Z88.2 Allergy status to sulfonamides; Z88.8 Allergy status to other drugs, medicaments and biological substances
CPT/HCPCS: 90004; 90098